=== PATIENT | male | born 1955 | race Caucasian/White ===

== ENCOUNTER → 2019-03-17 08:28 | Outpatient (CLI) | payer OTHER, SELFPAY ==
--- NOTE | 2019-03-17 08:38 | RAD_ITS ---
PROCEDURE: Fluoroscopic guided Hip Injection DATE: March 17, 2019. INDICATION: Male, 63 years old. Chronic right hip pain. PHYSICIAN: Apollo Miranda M.D. MEDICATIONS: 80 mg of Kenalog and 3 cc of 0.5% Marcaine. 2% lidocaine administered subcutaneously for local anesthesia. ACCESS SITE: Right hip. NEEDLE: 22-gauge spinal needle. FLUOROSCOPY TIME (if supplied): (0:38) minutes/seconds FINDINGS: The risks, benefits, and alternatives to the procedure were explained to the patient. The specific risks of bleeding, infection, and neurovascular injury were detailed and accepted. Witnessed informed consent was obtained. A 22-gauge spinal needle was positioned under radiographic fluoroscopic localization. Approximately 2 cc of Isovue-300 instilled for localization purposes. Medication was then injected. The patient tolerated the procedure well without any immediate complications. RAD/Inj/Asp Ludwig Jt Should/Hip/Knee IMPRESSION: 1. Successful fluoroscopic guided hip injection. Electronically Signed: Apollo Miranda, at 9:34 EDT , Service support ,
== END ==
PROVIDERS: Family Provider Physician Assistant; PCP Physician Assistant; Referring Provider Orthopaedic Surgery; Visit Provider Orthopaedic Surgery
DX: M16.11 Unilateral primary osteoarthritis, right hip (principal); M25.551 Pain in right hip; G89.29 Other chronic pain
CPT/HCPCS: 20610; 77002; Q9967

== ENCOUNTER → 2020-07-08 09:30 | Outpatient (CLI) | payer OTHER, SELFPAY ==
--- NOTE | 2020-07-08 09:38 | RAD_ITS ---
PROCEDURE: Fluoroscopic guided Hip Injection DATE: 07/08/2020. INDICATION: Male, 64 years old. Chronic right hip pain. PHYSICIAN: Apollo Miranda M.D. MEDICATIONS: 80 mg of KENALOG and 3 cc of 0.5% MARCAINE. 2% Lidocaine administered subcutaneously for local anesthesia. ACCESS SITE: Right hip. NEEDLE: 22-gauge spinal needle. FLUOROSCOPY TIME (if supplied): (0:43) minutes/seconds. One image was obtained. FINDINGS: The risks, benefits, and alternatives to the procedure were explained to the patient. The specific risks of bleeding, infection, and neurovascular injury were detailed and accepted. Witnessed informed consent was obtained. A 22-gauge spinal needle was positioned under radiographic fluoroscopic localization. Approximately 2 cc of ISOVUE-300 instilled for localization purposes. Medication was then injected. The patient tolerated the procedure well without any immediate complications. RAD/Inj/Asp Ludwig Jt Should/Hip/Knee IMPRESSION: 1. Successful fluoroscopic guided hip injection. Electronically Signed: Apollo Miranda, at 10:55 EST , Service support ,
== END ==
PROVIDERS: PCP Physician Assistant; Referring Provider Orthopaedic Surgery; Visit Provider Orthopaedic Surgery
DX: M25.551 Pain in right hip (principal); G89.29 Other chronic pain; M16.11 Unilateral primary osteoarthritis, right hip
CPT/HCPCS: 20610; 77002

== ENCOUNTER 2021-02-27 22:28 | Emergency (ER) | payer MEDICARE, SELFPAY ==
[2021-02-27 22:29] VITALS: BP 134/88; PULSE 86; RESP 12; TEMP 36.3; O2SAT 99; BMI 26.2
--- NOTE | 2021-02-27 23:35 | EKG12_ITS ---
Test Reason : DYSRHYTHMIA Blood Pressure : / mmHG Vent. Rate : 068 BPM Atrial Rate : 068 BPM P-R Int : 150 ms QRS Dur : 120 ms QT Int : 406 ms P-R-T Axes : 003 008 026 degrees QTc Int : 431 ms Normal sinus rhythm Normal ECG Confirmed by KENYETTA GARAY, NORMA ([id number]), index editor DEBORA RAMIREZ ([id number]) on 03/04/2021 8:51:34 AM Referred By: DILEEP Confirmed By:NORMA KUMARI MD
--- NOTE | 2021-02-27 23:35 | CT_ITS ---
STUDY: CT BRAIN WITHOUT CONTRAST REASON FOR EXAM: Male, 65 years old. dizziness RADIATION DOSAGE (If Supplied By Facility): CTDIvol = ( 44.99 ) mGy, DLP = ( 846.73 ) mGycm TECHNIQUE: Transaxial CT imaging of the brain was performed without administration of intravenous contrast material. Individualized dose optimization techniques were used for this CT. COMPARISON: 09/14/2013. FINDINGS: Normal soft tissue structures. Normal calvarium. There is mild to moderate cerebral atrophy with widening of the extra-axial spaces and ventricular dilatation. There are areas of decreased attenuation within the white matter tracts of the supratentorial brain, consistent with microvascular disease changes. Normal basal ganglia and thalami. Normal brainstem. Normal cerebellum. There is no intracranial hemorrhage. There are no findings of an acute ischemic infarction. Normal visualized paranasal sinuses. CT/Brain/Head without Contrast IMPRESSION: Chronic changes as described. No acute intracranial hemorrhage or space-occupying lesion. Electronically Signed: Christine Torres MD at 1:16 EDT , Service support ,
--- NOTE | 2021-02-27 23:37 | EX.ED.DYSGE1 ---
HPI History of Present Illness Chief Complaint: Dizziness Informant: patient and spouse/S.O. Narrative Narrative: Patient presents with episodes of dizziness/vertigo. He states he does feel as though the room is spinning around. He has had 4 more episodes of this over the last couple years. Normally he takes meclizine. However he ran out. He had an episode of this about a month ago. He used Dramamine instead of meclizine and that did help. However he is out of that medicine to. He had another episode today. His symptoms are much better if he stays still. If he moves or turns quickly he gets very significant vertigo. He has had some nausea but no vomiting. He has had the symptoms in the past. He never had numbness tingling weakness or any focal neurologic symptoms. No headache. Motion makes it worse and staying still makes it better. [facility] Medical History (Updated 02/28/21 @ 01:[address] Panchito Batista MD) Allergies Arthritis Hypertension Home Medications fexofenadine-pseudoephedrine [Gladis-D 24 Hour] 1 tab PO DAILY 02/28/21 [History Last Taken Unknown] lisinopril 20 mg PO DAILY 02/28/21 [History Last Taken Unknown] meclizine 25 mg PO TID PRN #20 tab 02/28/21 [Rx Last Taken Unknown] Allergy/AdvReac Type Severity Reaction Status Date / Time celecoxib [From Celebrex] AdvReac Upset Verified 02/27/21 22:29 Stomach Social History Smoking Status: Former smoker ROS ROS ED Constitutional Constitutional ED: Denies chills or fever(s) Eyes Eyes: Denies blurry vision or change in vision ENT ENT ED: Denies ear pain Cardiovascular Cardiovascular: Denies chest pain, palpitations or racing heartbeat Respiratory/Chest Respiratory/Chest: Denies cough or dyspnea Gastrointestinal Gastrointestinal: Reports nausea; Denies abdominal pain or vomiting Genitourinary Genitourinary ED: Denies dysuria Musculoskeletal Musculoskeletal: Denies back pain or neck pain Integumentary Denies rash Neurologic Neurologic: Denies headache(s), paresthesias or weakness Psychiatric Psychiatric: Denies anxiety or depression Endocrine Endocrinology: Denies polydipsia or polyuria Allergic/Immunologic Allergic/Immunologic ED: Denies urticaria EXAM Physical Exam Const Vital Signs: 02/27/21 22:29 02/28/21 00:13 02/28/21 00:18 Temperature 97.3 F L Temperature Source Temporal Pulse Rate 86 72 Respiratory Rate 12 16 Respiratory Effort Normal Non-Labored Respiratory Pattern Normal Blood Pressure 134/88 H 134/84 H Blood Pressure Mean 103 100 Pulse Ox 99 96 Oxygen Delivery Method Room Air Room Air Positive well nourished and well developed General Appearance ED: well developed and NAD HEENT Reports TM's clear and moist mucous membranes Negative for trauma or tenderness Tympanic Membrane ED: Yes TM's clear Eyes PERRL and EOMs intact bilaterally Neck no lymphadenopathy, supple and no JVD Chest Wall inspection of chest normal Resp normal respiratory effort and clear to auscultation bilaterally Cardio regular rate, regular rhythm and no murmurs GI normal to inspection, nondistended, normoactive bowel sounds and non-tender Palpation: soft Back/Spine no CVA tenderness Extremity normal to inspection General Extremety ED: Negative for edema or tenderness General Extremity: Negative for edema Neuro oriented x3, CN's II-XII intact bilaterally and no sensory deficits noted Neuro Narrative: Patient has very significant symptoms with motion. It is worse if he turns his head to the right. I had him lay down look up and turned to the right. When I sat him up he got horizontal nystagmus and vertigo. It was fatigable. Patient has no discoordination on exam. Sensorium / Orientation: alert; Negative for orientation impaired, lethargic or stuporous Motor Exam: strength 5/5 throughout; Negative for general weakness or strength abnormal Psych mental status grossly normal Skin no rashes or lesions noted MDM MDM MDM Narrative Medical decision making narrative: Patient's blood work shows normal CBC. Electrolytes showed some mild dehydration. He was given fluids. He has gotten up to the bathroom. He felt a little dizzy but he did feel better. I discussed options with him and his . His presentation is really consistent with benign positional vertigo. It is not pointing heavily to posterior circulation symptoms. He states he is normally done very well with meclizine. I offered trying some benzodiazepine. But they would prefer to stick with meclizine as it is helped so well. He is comfortable going home. Has his with him. We will follow with this plan. Lab Data Attestation: I reviewed the patient's lab results. Labs: Laboratory Results - last 24 hr 02/27/21 02/27/21 00:10 00:10 WBC 5.2 RBC 4.65 Hgb 13.8 Hct 43.8 MCV 94.2 H MCH 29.7 MCHC 31.5 L RDW Std Deviation 51.4 H RDW Coeff of Magda 14.8 H Plt Count 402 MPV 9.7 Immature Gran % (Auto) 0.400 Neut % (Auto) 57.3 Lymph % (Auto) 29.6 [place] % (Auto) 9.4 Eos % (Auto) 2.5 Baso % (Auto) 0.8 Absolute Neuts (auto) 3.0 Absolute Lymphs (auto) 1.55 Nucleated RBC % 0 Sodium 144 Potassium 3.8 Chloride 111 H Carbon Dioxide 30.0 Anion Gap 3 L BUN 35 H Creatinine 1.67 H Estim Creat Clear Calc 51.30 Est GFR (MDRD) Af Amer 53 L Est GFR (MDRD) Non-Af 44 L BUN/Creatinine Ratio 21.0 H Glucose 130 H Calcium 8.6 Radiography Diagnostic Testing: Radiology Impression Brain CT 02/27/21 23:35 IMPRESSION: Chronic changes as described. No acute intracranial hemorrhage or space-occupying lesion. Electronically Signed: Christine Torres MD at 1:16 EDT , Service support , EKG Initial EKG: Comments: EKG done for dizziness and read by me shows normal sinus rhythm with a rate of 68. No ectopy. No acute ST elevation or depression. IN interval, QTC are normal. QRS duration is just at the high limit of normal at 120 ms. Discharge Plan Triage Chief Complaint: Dizziness ED Provider: Panchito Batista Dx/Rx/DC Orders Clinical Impression: Vertigo, Dehydration, mild Instructions: ED BPV Vertigo Prescriptions: New meclizine 25 mg tablet 25 mg PO TID PRN (Reason: dizziness) Qty: 20 RF: 0 No Action lisinopril 20 mg Tablet 20 mg PO DAILY RF: 0 Gladis-D 24 Hour 180-240 mg Tablet Extended Release 24 Hr 1 tab PO DAILY RF: 0 Primary Care Provider: Clifton Doran Referrals: Clifton Doran, PA [Primary Care Provider] - 3-5 Days Disposition Disposition: Home, Self Care
[2021-02-28] MEDS: 0.9% Normal Saline 1,000 ML 1000 ML IV (00:12)
[2021-02-28] MEDS: Meclizine HCl 25 MG Tablet PO (00:12)
[2021-02-28 00:15] LABS: Absolute Lymphocyte Count 1.55 X10^3/uL (0.83-4.51); Basophil# 0.04 X10^3/uL; Basophil% 0.8 % (0-1); Eosinophil# 0.13 X10^3/uL; Eosinophils% 2.5 % (0-5); Hematocrit 43.8 % (40-54); Hemoglobin 13.8 g/dL (13.0-16.5); Lymphocyte # 1.55 X10^3/ul (0.83-4.51); Lymphocyte % 29.6 % (19-41); Mean Corp Hgb Conc 31.5 g/dL (32-36); Mean Corpuscular Hgb 29.7 pg (27.0-32.0); Mean Corpuscular Volume 94.2 fL (80-94); Mean Platelet Vol. 9.7 fl (6.2-12.0); Monocyte# 0.49 X10^3/uL; Monocyte% 9.4 % (0-10); NRBC Flagged by Analyzer 0 % (0-5); Neutrophil % 57.3 % (47-70); Platelet Count 402 K/mm3 (150-450); RBC Distribution Width CV 14.8 % (11.6-14.6); RBC Distribution Width SD 51.4 fl (35.1-43.9); Red Blood Count 4.65 M/mm3 (4.6-6.2); White Blood Count 5.2 K/mm3 (4.4-11.0)
[2021-02-28 00:18] VITALS: BP 134/84; PULSE 72; RESP 16; O2SAT 96
[2021-02-28 00:36] LABS: Anion Gap 3 (5-15); BUN 35 mg/dL (7-18); Calcium,Total 8.6 mg/dL (8.5-10.1); Chloride 111 mmol/L (98-107); Creatinine, Serum 1.67 mg/dL (0.70-1.30); EST Glomerular Filtration Rate 44 mL/min (>60); Est Glom Filt Rate - Afr Amer 53 mL/min (>60); Glucose 130 mg/dL (74-106); Potassium 3.8 mmol/L (3.5-5.1); Sodium Level 144 mmol/L (136-145)
[2021-02-28 02:04] VITALS: BP 124/77; PULSE 68; RESP 15; O2SAT 98
== END 2021-02-28 02:52 | disposition home or self-care (01) ==
PROVIDERS: Emergency Provider Emergency Medicine; PCP Physician Assistant
DX: R42 Dizziness and giddiness (principal); E86.0 Dehydration; Z79.899 Other long term (current) drug therapy; Z87.891 Personal history of nicotine dependence
CPT/HCPCS: 70450; 80048; 85025; 93005; 96360; 99284; J7030; A4216

== ENCOUNTER 2021-04-11 13:45 | Inpatient (IN) | payer MEDICARE, SELFPAY ==
[2021-04-11 13:58] VITALS: BMI 25.2
[2021-04-11 14:57] VITALS: BP 90/55; PULSE 94; RESP 18; TEMP 36.8; O2SAT 96
--- NOTE | 2021-04-11 16:15 | HP.PCM_ITS ---
HPI - General General Date of Admission: 04/11/21 HPI Narrative LARISA ROCK, is a 65 Male who presents with followin04/09/2021 Dr. Foley performed right total hip replacement at [facility]. 04/10/2021 DVT prophylaxis with aspirin, sequential compression devices. Oxycodone stopped due to postoperative delirium. 04/11/2021 Admit to TCU with debility, here for rehabilitation, strengthening, prior to discharge home with . [facility] Medical History Allergies Arthritis Hypertension Home Medications fexofenadine-pseudoephedrine [Gladis-D 24 Hour] 1 tab PO DAILY 02/28/21 [History Last Taken Unknown] lisinopril 20 mg PO DAILY 02/28/21 [History Last Taken Unknown] meclizine 25 mg PO TID PRN #20 tab 02/28/21 [Rx Last Taken Unknown] acetaminophen 1,000 mg PO Q8H PRN 04/11/21 [History Last Taken Unknown] aspirin 81 mg PO DAILY 04/11/21 [History Last Taken Unknown] ferrous sulfate 325 mg PO DAILY 04/11/21 [History Last Taken Unknown] senna 8.6 mg PO DAILY 04/11/21 [History Last Taken Unknown] tamsulosin 0.4 mg PO DAILY 04/11/21 [History Last Taken Unknown] tramadol 50 mg PO Q6H PRN 04/11/21 [History Last Taken Unknown] Allergy/AdvReac Type Severity Reaction Status Date / Time celecoxib [From Celebrex] AdvReac Upset Verified 02/27/21 22:29 Stomach Family History (Updated 04/11/21 @ 16:[address] Bridger Santos MD) Mother Cancer Father Alzheimer disease Prostate cancer Sister Lymphoma Social History Smoking Status: Former smoker ROS Constitutional Constitutional: Denies chills, fever(s) or weight gain ENT HEENT: Denies headache(s), nasal congestion or nasal discharge Cardiovascular Cardiovascular: Denies chest pain or palpitations Respiratory/Chest Respiratory/Chest: Denies cough, excessive phlegm production or shortness of breath with exertion Gastrointestinal Gastrointestinal: Denies abdominal pain, nausea or vomiting Genitourinary Genitourinary: Denies dysuria Musculoskeletal Musculoskeletal: Denies joint pain or joint swelling Integumentary Integumentary: Denies rash or wounds Neurologic Neurologic: Denies focal weakness, numbness or tingling Psychiatric Psychiatric: Reports auditory hallucinations; Denies anxiety, depression, homicidal ideation or suicidal ideation Vital Signs Vital Signs Vital Signs: 04/11/21 14:54 04/11/21 14:57 Temperature 98.2 F Temperature Source Temporal Pulse Rate 94 Pulse Rhythm Regular Pulse Strength Normal (2+) Respiratory Rate 18 Respiratory Effort Normal Non-Labored Respiratory Depth Normal Respiratory Pattern Normal Blood Pressure 90/55 L Blood Pressure Mean 66 Blood Pressure Source Monitor Blood Pressure Position Sitting Blood Pressure Location Left Arm Pulse Ox 96 Oxygen Delivery Method Room Air Room Air Weight Weight: 89.103 kg Body Mass Index (BMI) 25.2 Physical Exam Const alert and oriented x3 General Appearance: cooperative HEENT normocephalic Eyes PERRL and EOMs intact bilaterally Neck supple, no JVD and no carotid bruits Resp normal respiratory effort, normal air movement and clear to auscultation bilaterally Cardio regular rate and regular rhythm GI normal to inspection, nondistended, normoactive bowel sounds, non-tender and non-distended Extremity normal capillary refill General Extremity: Negative for edema Skin no rashes or lesions noted General Skin Exam: no breakdown Psych affect normal Appearance: appropriate Assessment & Plan Assessment/Plan (1) History of total right hip replacement: (2) Debility: (3) Osteoarthritis of right hip: (4) Encephalopathy: (5) Obstructive sleep apnea: (6) Benign prostate hyperplasia: (7) Psoriasis: (8) Mild cognitive impairment: (9) History of basal cell cancer: PLAN: 65 year old male with below past medical history hospitalized right total hip replacement 04/09/[address] Foley, admitted to TCU with debility, here for rehabilitation, strengthening, prior to discharge home with . * Debility - PT/OT. * Pain - Tylenol 1000mg Q6H prn pain (1-5), Tramadol 50mg Q6H prn pain (6-10). * Bowel - Miralax 17gm daily, Senna/colace 1 tablet twice daily, Dulcolax 10mg daily prn. * Adult immunization - Administer prevnar 13, pneumovax 23, fluzone, covid19 vaccine as appropriate. * DVT prophylaxis - Lovenox 40mg sc daily. * CV prophylaxis - Aspirin 81mg daily. * Nutrition - Ensure Enlive 120ml 4x/day. * Iron deficiency anemia - Ferrous sulfate 325mg daily. * Hypertension - Lisinopril 20mg daily. * Allergic rhinitis - Loratadine 10mg daily, Sudafed 60mg 4x/day. * BPH - Tamsulosin 0.4mg daily.
[2021-04-12 05:00] VITALS: BP 91/63; PULSE 99
[2021-04-12] MEDS: Lisinopril 20 MG Tablet PO (05:14)
[2021-04-12] MEDS: Tamsulosin HCl 0.4 MG Capsule PO (05:16)
[2021-04-12] MEDS: Polyethylene Glycol 3350 17 GM PACKET PO (05:18)
[2021-04-12] MEDS: Enoxaparin 40 MG/0.4 ML Syringe SC (05:19)
[2021-04-12] MEDS: Loratadine 10 MG Tablet PO (05:19)
[2021-04-12] MEDS: Senna/Docusate Sodium 1 Tablet PO ×2 (05:19→17:28)
[2021-04-12] MEDS: Aspirin E.C. 81 MG Tablet PO (07:35)
[2021-04-12] MEDS: Acetaminophen 500 MG Tablet 1000 MG PO ×2 (07:37→14:52)
[2021-04-12 08:40] LABS: Absolute Lymphocyte Count 1.96 X10^3/uL (0.83-4.51); Absolute Neutrophil Count 6.2 X10^3/uL (2.0-7.7); Basophil# 0.03 X10^3/uL; Basophil% 0.3 % (0-1); Eosinophil# 0.07 X10^3/uL; Eosinophils% 0.8 % (0-5); Hematocrit 39.4 % (40-54); Hemoglobin 12.6 g/dL (13.0-16.5); Lymphocyte # 1.96 X10^3/ul (0.83-4.51); Lymphocyte % 21.3 % (19-41); Mean Corpuscular Hgb 29.9 pg (27.0-32.0); Mean Corpuscular Volume 93.4 fL (80-94); Mean Platelet Vol. 10.1 fl (6.2-12.0); Monocyte# 0.87 X10^3/uL; Monocyte% 9.4 % (0-10); NRBC Flagged by Analyzer 0 % (0-5); Neutrophil % 67.2 % (47-70); Platelet Count 452 K/mm3 (150-450); RBC Distribution Width SD 51.6 fl (35.1-43.9); Red Blood Count 4.22 M/mm3 (4.6-6.2); White Blood Count 9.2 K/mm3 (4.4-11.0)
[2021-04-12 09:22] LABS: Anion Gap 7 (5-15); BUN 36 mg/dL (7-18); BUN/Creat Ratio 17.3 RATIO (10-20); Calcium,Total 8.6 mg/dL (8.5-10.1); Chloride 103 mmol/L (98-107); Creatinine, Serum 2.08 mg/dL (0.70-1.30); EST Glomerular Filtration Rate 34 mL/min (>60); Est Glom Filt Rate - Afr Amer 41 mL/min (>60); Estimated Creatinine Clearance 40.07 ml/min; Glucose 111 mg/dL (74-106); Potassium 3.4 mmol/L (3.5-5.1); Sodium Level 136 mmol/L (136-145)
[2021-04-12 10:00] VITALS: PULSE 83; RESP 18; O2SAT 92
[2021-04-12] MEDS: Tuberculin,Purif.prot.deriv. 50 TU/ML Vial 0.1 ML ID (10:56)
[2021-04-12] MEDS: Ferrous Sulfate 325 MG Tablet PO (11:45)
[2021-04-12] MEDS: 0.9% Normal Saline 1,000 ML 75 ML IV (13:13)
[2021-04-12 14:48] VITALS: BP 129/67; PULSE 64; RESP 18; TEMP 36.3; O2SAT 97
--- NOTE | 2021-04-13 00:05 | NURSING ---
Alarm sounds and pt is ambulating back to bed on left side of bed towards the window. Disoriented and anxious. Reports the red lights woke him up. Pt points to light switches behind bed with red lights. Emotional support and reassurance provided. Verbalizes he would like to shower and informed pt he may not be able due to the mepliex to the right hip. Pt toileted. Continent of urine. Ambulates back to bed using FWW. Mod to max cueing to enforce WB status with poor adherence. Positioned in bed for comfort. Reconnected to IVF. Bed alarm in place and bed in lowest position. Call light w/ in reach. Will continue to monitor.
[2021-04-13] MEDS: Acetaminophen 500 MG Tablet 1000 MG PO ×2 (00:46→20:55)
--- NOTE | 2021-04-13 03:54 | NURSING ---
Pt uncomfortable and bladder scanned for 580cc. Straighted cathed for 400 out. Urine light yellow and clear. Patient tolerated well.
[2021-04-13] MEDS: 0.9% Normal Saline 1,000 ML 75 ML IV ×2 (06:51→19:11)
[2021-04-13] MEDS: Lisinopril 20 MG Tablet PO (06:52)
[2021-04-13] MEDS: Tamsulosin HCl 0.4 MG Capsule PO (06:52)
[2021-04-13] MEDS: Loratadine 10 MG Tablet PO (06:52)
[2021-04-13] MEDS: Polyethylene Glycol 3350 17 GM PACKET PO (06:53)
[2021-04-13] MEDS: Enoxaparin 40 MG/0.4 ML Syringe SC (06:53)
[2021-04-13] MEDS: Senna/Docusate Sodium 1 Tablet PO ×2 (06:54→16:58)
[2021-04-13] MEDS: Potassium Chloride Oral Tablet 20 MEQ PO (07:30)
[2021-04-13] MEDS: Aspirin E.C. 81 MG Tablet PO (07:30)
--- NOTE | 2021-04-13 07:39 | NURSING ---
Alarm sounds and pt is wandering in room without walker. Poorly maintaining PWB status to RLE. This nurse assisted pt using wheeled walker to common area across from nurses station. Reddy placed within reach to call for staff. Given ice water. Pt stands up within minutes and would like to go to bathroom to adjust his underwear. Pt sits on toilet and thinks he has to void. No urine noted in hat. Brief dry as st cath was completed recently. Alarm placed on chair. Breakfast tray set up per staff. Thinks his and daughter are here on unit. Informed pt his family has not arrived to visit at this time. Attempted to reorient pt to place and time. Staff to continue to monitor.
[2021-04-13 08:13] LABS: Anion Gap 10 (5-15); BUN 47 mg/dL (7-18); BUN/Creat Ratio 18.2 RATIO (10-20); Calcium,Total 8.6 mg/dL (8.5-10.1); Chloride 106 mmol/L (98-107); Creatinine, Serum 2.58 mg/dL (0.70-1.30); EST Glomerular Filtration Rate 27 mL/min (>60); Est Glom Filt Rate - Afr Amer 32 mL/min (>60); Glucose 111 mg/dL (74-106); Potassium 3.6 mmol/L (3.5-5.1); Sodium Level 139 mmol/L (136-145)
--- NOTE | 2021-04-13 10:04 | NURSING ---
pt remains confused and restless. Requiring 1:1 supervision
--- NOTE | 2021-04-13 10:39 | NURSING ---
Notified Dr. Santos of patient restless, not sleeping at night and requiring 1:1 supervision. Received order for Ativan 1mg q6hr PRN, stop Sudafed. Order repeated back.
[2021-04-13] MEDS: Ferrous Sulfate 325 MG Tablet PO (11:11)
[2021-04-13 13:24] LABS: Bacteria 0 SEEN /hpf (None Seen); Mucous, Urine 0 SEEN /hpf (<or=2+); Squamous Epithelial Cells - UA 0 SEEN /hpf (0-5); White Blood Cells 0 SEEN /hpf (0-5)
[2021-04-13 13:41] LABS: Color, Urine Yellow (Yellow); Glucose, Dipstick Normal (Normal); Ketone-Dipstick Negative (Negative); Leukocyte Esterase-Dipstick Negative /ul (Negative); Nitrite-Dipstick Negative (Negative); Occult Blood-Urine 50 /ul (Negative); Protein-Dipstick 30 mg/dl (Negative); Specific Gravity, Urine 1.005 (1.002-1.030); Urine Bilirubin Dipstick Negative (Negative); Urine Clarity Clear (Clear); Urine Urobilinogen Normal (Normal)
[2021-04-13 13:47] LABS: Red Blood Cells-Urine 0-5 SEEN /hpf (0-5)
[2021-04-13 15:53] VITALS: BP 96/68; PULSE 95; RESP 16; TEMP 36.7; O2SAT 96
[2021-04-13] MEDS: LORazepam 1 MG Tablet PO (19:10)
[2021-04-13 20:21] VITALS: PULSE 72; RESP 16; O2SAT 97
--- NOTE | 2021-04-13 23:18 | NURSING ---
Pt given prn ativan per order earlier. Pt appeared to be getting sleepy after about an hour. Pt was put to bed. He was unable to sleep, fidgeting with everything then kept pulling off cpap and started arguing with staff. Mask taken off as pt was not tolerating well. Getting more difficult to redirect. Continues to be 1to1 supervision
[2021-04-14] MEDS: Tamsulosin HCl 0.4 MG Capsule PO (04:58)
[2021-04-14] MEDS: 0.9% Normal Saline 1,000 ML 75 ML IV ×2 (04:58→12:12)
[2021-04-14] MEDS: Loratadine 10 MG Tablet PO (04:58)
[2021-04-14] MEDS: Lisinopril 20 MG Tablet PO (04:58)
[2021-04-14] MEDS: Senna/Docusate Sodium 1 Tablet PO ×2 (04:59→17:23)
[2021-04-14] MEDS: Polyethylene Glycol 3350 17 GM PACKET PO (05:00)
[2021-04-14] MEDS: Enoxaparin 40 MG/0.4 ML Syringe SC (05:01)
--- NOTE | 2021-04-14 06:36 | NURSING ---
Pt still awake, had not slept this shift. Is no longer aggitated and is back to his pleasant self. Continues to be very confused, fidgeting with everything. Pt is able to be easily redirected..
[2021-04-14] MEDS: traMADol 50 MG Tablet PO ×2 (07:45→20:37)
[2021-04-14] MEDS: Aspirin E.C. 81 MG Tablet PO (07:45)
[2021-04-14] MEDS: Potassium Chloride Oral Tablet 20 MEQ PO (07:45)
[2021-04-14] MEDS: Acetaminophen 500 MG Tablet 1000 MG PO ×2 (07:46→20:30)
--- NOTE | 2021-04-14 10:02 | NURSING ---
PT IS SLEEPING IN RECLINER AT THIS TIME.
[2021-04-14] MEDS: Ferrous Sulfate 325 MG Tablet PO (12:08)
--- NOTE | 2021-04-14 14:06 | PCM.PN.RX ---
Progress Note - Pharmacy Subjective: TCU Admission Objective: Allergies celecoxib [From Celebrex] Adverse Reaction (Verified 02/27/21 22:29) Upset Stomach Current Medications Generic Name Dose Route Start Last Admin Trade Name Young PRN Reason Stop Dose Admin Acetaminophen 1,000 mg 04/11/21 16:36 04/14/21 07:46 Acetaminophen 500 Mg Tablet PO 1,000 mg Q6H PRN PRN Administration Pain Score 1-5 Aspirin 81 mg 04/12/21 08:00 04/14/21 07:45 Aspirin E.C. 81 Mg Tablet PO 81 mg BREAKFAST [place] Administration Bisacodyl 10 mg 04/11/21 16:35 Bisacodyl 5 Mg Tablet PO DAILY PRN Constipation Enoxaparin Sodium 40 mg 04/12/21 06:00 04/14/21 05:01 Enoxaparin 40 Mg/0.4 Ml Syringe SC 40 mg DAILY@0600 [place] Administration Ferrous Sulfate 325 mg 04/12/21 12:00 04/14/21 12:08 Ferrous Sulfate 325 Mg Tablet PO 325 mg LUNCH [place] Administration Sodium Chloride 1,000 mls @ 75 mls/hr 04/12/21 12:05 04/14/21 12:12 IV 75 mls/hr .[id number] [place] Administration Lisinopril 20 mg 04/12/21 06:00 04/14/21 04:58 Lisinopril 20 Mg Tablet PO 20 mg DAILY [place] Administration Loratadine 10 mg 04/12/21 06:00 04/14/21 04:58 Loratadine 10 Mg Tablet PO 10 mg DAILY [place] Administration Nutritional Formula (Lactose Free) 120 ml 04/11/21 17:00 04/14/21 12:11 Ensure Enlive 120 Ml Liquid PO 120 ml 4X/DAY [place] Administration Polyethylene Glycol 17 gm 04/11/21 16:45 04/14/21 05:00 Polyethylene Glycol 3350 17 Gm Packet PO 17 gm DAILY [place] Administration Potassium Chloride 20 meq 04/13/21 08:00 04/14/21 07:45 Potassium Chloride Oral Tablet 20 Meq PO 20 meq DAILYCM [place] Administration Senna/Docusate Sodium 1 tablet 04/11/21 18:00 04/14/21 04:59 Senna/Docusate Sodium 1 Tablet PO 1 tablet BID [place] Administration Tamsulosin HCl 0.4 mg 04/12/21 06:00 04/14/21 04:58 Tamsulosin Hcl 0.4 Mg Capsule PO 0.4 mg DAILY [place] Administration Tramadol HCl 50 mg 04/11/21 16:36 04/14/21 07:45 Tramadol 50 Mg Tablet PO 50 mg Q6H PRN PRN Administration Pain Score 6-10 Tuberculin PPD 0.1 ml 04/19/21 10:00 Tuberculin,Purif.Prot.Deriv. 50 Tu/Ml Vial ID 04/19/21 10:01 X1 ONE Problem List (Last Reviewed 02/28/21 @ 00:14 by Tayler Donis) History of basal cell cancer (Acute) Mild cognitive impairment (Acute) Psoriasis (Acute) Benign prostate hyperplasia (Acute) Obstructive sleep apnea (Acute) Encephalopathy (Acute) Osteoarthritis of right hip (Acute) Debility (Acute) History of total right hip replacement (Acute) Vital Signs Temp Pulse Resp BP Pulse Ox 98.0 F 72 16 96/68 97 04/13/21 15:53 04/13/21 20:21 04/13/21 20:21 04/13/21 15:53 04/13/21 20:21 Oxygen Delivery Method Room Air Weight: 89.103 kg Body Mass Index (BMI) 25.2 Sodium 139 mmol/L (136-145) 04/13/21 06:50 Potassium 3.6 mmol/L (3.5-5.1) 04/13/21 06:50 Chloride 106 mmol/L (98-107) 04/13/21 06:50 Carbon Dioxide 23.0 mmol/L (21.0-32.0) 04/13/21 06:50 Anion Gap 10 (5-15) 04/13/21 06:50 BUN 47 mg/dL (7-18) H 04/13/21 06:50 Creatinine 2.58 mg/dL (0.70-1.30) H 04/13/21 06:50 Est GFR (MDRD) Af Amer 32 mL/min (>60) L 04/13/21 06:50 Est GFR (MDRD) Non-Af 27 mL/min (>60) L 04/13/21 06:50 BUN/Creatinine Ratio 18.2 RATIO (10-20) 04/13/21 06:50 Glucose 111 mg/dL (74-106) H 04/13/21 06:50 Assessment/Plan: 1. Pain: acetaminophen 1000mg PO Q6H PRN pain 1-5/10 and tramadol 50mg PO Q6H PRN pain 6-1010. Please continue to monitor for increased pain, PRN usage, constipation and respiratory depression. 2. DVT prophylaxis: enoxaparin 40mg SC daily. Please continue to monitor hemoglobin (last 12.6g/dL), platelets (last 452,000), S/S of bleeding and renal function. 3. CV prophylaxis: aspirin 81mg PO DAILYCM. Please continue to monitor for S/S of bleeding and hemoglobin. 4. Iron deficiency anemia: ferrous sulfate 325mg PO LUNCH. Please continue to monitor hemoglobin, constipation and dark stools. 5. Hypertension: lisinopril 20mg PO daily. Please continue to monitor BP (last 96/), potassium (last 3.6mmol/L), and renal function. 6. Allergic rhinitis: loratadine 10mg PO daily. Please continue to monitor for allergy symptoms. 7. BPH: tamsulosin 0.4mg PO daily. Please continue to monitor for S/S of BPH and BP. 8. Hypokalemia (potassium 3.4mmol/L on 04/12/21): potassium chloride 20mEq PO DAILYCM. Please continue to monitor potassium levels. Psychotropic Medications: None Unnecessary Medications: None Bowel Regimen: Miralax 17gm PO daily, senna/docusate 1T PO BID and bisacodyl 10mg PO daily PRN constipation. Please continue to monitor for constipation and PRN usage. Date of Note:: 04/14/21
[2021-04-14 14:51] VITALS: BP 112/69; PULSE 70; RESP 16; TEMP 35.9; O2SAT 95
[2021-04-14] MEDS: Bisacodyl 5 MG Tablet 10 MG PO (17:23)
[2021-04-15] MEDS: 0.9% Normal Saline 1,000 ML 75 ML IV (01:01)
[2021-04-15] MEDS: Acetaminophen 500 MG Tablet 1000 MG PO ×2 (02:32→23:04)
[2021-04-15] MEDS: traMADol 50 MG Tablet PO ×2 (02:32→23:04)
--- NOTE | 2021-04-15 07:52 | NURSING ---
AM meds held at this time as pt went to bed at 0230. OT notified to postpone ADL. Oncoming nurses updated.
--- NOTE | 2021-04-15 09:29 | CASEMGMT ---
Social Work Met with patient for initial assessment. Pt could answer limited questions, poor historian. Pt did express his wishes to be full code. MOLST form completed, communication to , placed in chart. The goal is for pt to return home with . works from home. Pt is confused which is new for him. Explained [facility] insurance with [employer]D 04/15 and continued stay is not guaranteed with each review. Completed chart review for the rest of the assessment questions. Care plan meeting 04/16. SW to continue to follow. Laury Llamas, RPG PROGRAMMER WET PLANT OPERATOR
[2021-04-15] MEDS: Tamsulosin HCl 0.4 MG Capsule PO (09:51)
[2021-04-15] MEDS: Senna/Docusate Sodium 1 Tablet PO ×2 (09:51→16:17)
[2021-04-15] MEDS: Loratadine 10 MG Tablet PO (09:51)
[2021-04-15] MEDS: Enoxaparin 40 MG/0.4 ML Syringe SC (09:51)
[2021-04-15] MEDS: Polyethylene Glycol 3350 17 GM PACKET PO (09:51)
[2021-04-15] MEDS: Aspirin E.C. 81 MG Tablet PO (09:53)
[2021-04-15] MEDS: Potassium Chloride Oral Tablet 20 MEQ PO (09:53)
[2021-04-15] MEDS: Lisinopril 20 MG Tablet PO (09:58)
[2021-04-15 10:02] VITALS: BP 140/88; PULSE 83
[2021-04-15] MEDS: Ferrous Sulfate 325 MG Tablet PO (13:32)
[2021-04-15 14:04] VITALS: BP 114/73; PULSE 102; RESP 17; TEMP 36.1; O2SAT 96
[2021-04-15 23:05] VITALS: RESP 18
[2021-04-16] MEDS: Polyethylene Glycol 3350 17 GM PACKET PO (04:32)
[2021-04-16] MEDS: Loratadine 10 MG Tablet PO (04:32)
[2021-04-16] MEDS: Tamsulosin HCl 0.4 MG Capsule PO (04:32)
[2021-04-16] MEDS: Enoxaparin 40 MG/0.4 ML Syringe SC (04:32)
[2021-04-16] MEDS: Lisinopril 20 MG Tablet PO (04:32)
[2021-04-16] MEDS: Senna/Docusate Sodium 1 Tablet PO ×2 (04:32→17:27)
[2021-04-16 05:12] VITALS: BP 112/67; PULSE 89
[2021-04-16] MEDS: Potassium Chloride Oral Tablet 20 MEQ PO (09:28)
[2021-04-16] MEDS: Aspirin E.C. 81 MG Tablet PO (09:28)
[2021-04-16] MEDS: Ferrous Sulfate 325 MG Tablet PO (11:59)
--- NOTE | 2021-04-16 13:00 | CASEMGMT ---
Social Work IDT met with patient and for care plan meeting. Discussed patient's progress in therapy and nursing. ST working on cognition, etc. reports pt was working with neurologist for testing for Dementia/Alzheimer's but have not received results at this time, and was diagnosed with severe sleep apnea, and had issues with short term memory. 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 IDT recommends 08/02 supervision at DC at this time. Explained [facility] insurance with NRD 04/22, EDC 04/25. Provided and explained insurance care plan. Discussed DC options to ensure safety at home. 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 Provided and explained resources for adult day centers, nonskilled HHC and encouraged to contact quickly d/t availability. Pt has new girard and would prefer that be DC'd prior to DC home. Pt does have PWBS. appreciative of information. SW to continue to follow. Laury Llamas, THICKENER OPERATOR RETAIL STORE ASSISTANT
[2021-04-16 13:44] VITALS: PULSE 115; RESP 16; O2SAT 96
[2021-04-16 15:23] VITALS: BP 116/74; PULSE 102; RESP 18; TEMP 36.5; O2SAT 96
--- NOTE | 2021-04-16 16:33 | CHAPLAIN ---
Type of Pastoral Visit ___ Initial Visit ___ Follow-up Visit ___ On-call Visit _x__ General Patient Visit ___ Spiritual Assessment ___ Family Conference ___ Bereavement ___ Rapid Response ___ Code Blue ___ Other (describe below) Pastoral Care Referral From ___ Patient ___ Family ___ Nurse ___ Physician ___ Roustabout ___ Benefits Director _x__ Other (describe below) Sacrament/Intervention _x__ Active listening ___ Anointing ___ Catholic ___ Bereavement ___ Communion ___ Scarlet exploration ___ ___ Life review ___ Prayer ___ Reconciliation ___ Sacrament of Sick ___ Supportive presence ___ Wedding ___ Other (describe below) Pastoral Comments met this patient as he was playing [employer] for today's activity; pt was talkative and welcoming of visit; pt speaks of his family and how he has loved long-term so I can be there and not miss out on their lives;
--- NOTE | 2021-04-17 04:14 | NURSING ---
Patient found in bed with catheter no longer attached to drainage bag tubing, bed wet. Removed catheter and replaced with 16F girard using sterile technique, return of clear yellow urine. New statlock applied to right leg. Patient tolerated well.
[2021-04-17 05:05] VITALS: BP 112/66; PULSE 104
[2021-04-17] MEDS: Tamsulosin HCl 0.4 MG Capsule PO (05:05)
[2021-04-17] MEDS: Enoxaparin 40 MG/0.4 ML Syringe SC (05:05)
[2021-04-17] MEDS: Loratadine 10 MG Tablet PO (05:05)
[2021-04-17] MEDS: Polyethylene Glycol 3350 17 GM PACKET PO (05:06)
[2021-04-17] MEDS: Senna/Docusate Sodium 1 Tablet PO ×2 (05:06→16:53)
[2021-04-17] MEDS: Lisinopril 20 MG Tablet PO (05:06)
[2021-04-17] MEDS: Aspirin E.C. 81 MG Tablet PO (08:26)
[2021-04-17] MEDS: Potassium Chloride Oral Tablet 20 MEQ PO (08:26)
[2021-04-17] MEDS: Ferrous Sulfate 325 MG Tablet PO (11:46)
--- NOTE | 2021-04-17 13:41 | NURSING ---
Addendum entered by Nanci Moore 04/17/21 15:12: Rechecked Blood pressure 87/58 Pulse 104 pt denies signs and symptoms of Low BP. Dr. Santos updated new order for 1L bolus of NS and recheck BP after Bolus. Original Note: Pt BP 73/48 Pulse 132 Temp 98.1 SP02 94% RA. Pt denies signs and symptoms of Low Blood Pressure. Dr. Santos updated New order for 1L Bolus of NS BMP D/C Zestril and recheck BP after bolus.
[2021-04-17 13:45] VITALS: BP 73/48; PULSE 132; RESP 18; TEMP 36.7; O2SAT 94
[2021-04-17] MEDS: 0.9% Normal Saline 1,000 ML 1000 ML IV ×2 (13:45→15:28)
[2021-04-17 14:16] LABS: Anion Gap 5 (5-15); BUN 36 mg/dL (7-18); BUN/Creat Ratio 21.3 RATIO (10-20); Calcium,Total 9.3 mg/dL (8.5-10.1); Chloride 107 mmol/L (98-107); Creatinine, Serum 1.69 mg/dL (0.70-1.30); EST Glomerular Filtration Rate 43 mL/min (>60); Est Glom Filt Rate - Afr Amer 52 mL/min (>60); Estimated Creatinine Clearance 49.31 ml/min; Glucose 136 mg/dL (74-106); Potassium 4.5 mmol/L (3.5-5.1); Sodium Level 138 mmol/L (136-145)
--- NOTE | 2021-04-17 14:43 | MDS.RN ---
Pain interview for ELA 04/18/21 completed.
[2021-04-17 15:00] VITALS: BP 87/58; PULSE 104
[2021-04-17 16:18] VITALS: BP 118/75; PULSE 91
[2021-04-17 20:30] VITALS: BP 103/67; PULSE 97; RESP 18; O2SAT 98
--- NOTE | 2021-04-17 21:11 | NURSING ---
Pop catheter removed. Patient tolerated well. Small amount of discharge noted with removal. Patient had 675ml Urine out prior to removal. Will continue to monitor.
[2021-04-18 05:24] VITALS: BP 131/81; PULSE 97
[2021-04-18] MEDS: Polyethylene Glycol 3350 17 GM PACKET PO (05:31)
[2021-04-18] MEDS: Enoxaparin 40 MG/0.4 ML Syringe SC (05:33)
[2021-04-18] MEDS: Loratadine 10 MG Tablet PO (05:35)
[2021-04-18] MEDS: Tamsulosin HCl 0.4 MG Capsule PO (05:35)
[2021-04-18] MEDS: Senna/Docusate Sodium 1 Tablet PO ×2 (05:35→17:37)
[2021-04-18] MEDS: Potassium Chloride Oral Tablet 20 MEQ PO (08:36)
[2021-04-18] MEDS: Aspirin E.C. 81 MG Tablet PO (08:36)
[2021-04-18 10:00] VITALS: PULSE 97; RESP 18; O2SAT 99
[2021-04-18] MEDS: Ferrous Sulfate 325 MG Tablet PO (11:46)
[2021-04-18 15:49] VITALS: BP 88/57; PULSE 105; RESP 18; TEMP 36.2; O2SAT 96
[2021-04-18 19:26] VITALS: BP 104/59; PULSE 108; O2SAT 96
[2021-04-18 21:26] VITALS: PULSE 86; RESP 18; O2SAT 96
[2021-04-18 23:34] VITALS: BP 119/80; PULSE 105; RESP 18; TEMP 36.9; O2SAT 98
--- NOTE | 2021-04-19 04:18 | NURSING ---
Alarm sounds and pt in doorway of bathroom. Does not have walker. Assisted pt to bathroom. Brief w/ small amount of urine. ANCHOR TACK PULLER comes in to assist with bathing to maintain safety. Denies any and shows no sxs pain or discomfort.
[2021-04-19] MEDS: Tamsulosin HCl 0.4 MG Capsule PO (06:12)
[2021-04-19] MEDS: Loratadine 10 MG Tablet PO (06:12)
[2021-04-19] MEDS: Polyethylene Glycol 3350 17 GM PACKET PO (06:12)
[2021-04-19] MEDS: Senna/Docusate Sodium 1 Tablet PO (06:12)
[2021-04-19] MEDS: Enoxaparin 40 MG/0.4 ML Syringe SC (06:12)
[2021-04-19 07:27] LABS: Absolute Lymphocyte Count 2.19 X10^3/uL (0.83-4.51); Absolute Neutrophil Count 4.8 X10^3/uL (2.0-7.7); Basophil# 0.04 X10^3/uL; Basophil% 0.5 % (0-1); Eosinophil# 0.21 X10^3/uL; Eosinophils% 2.6 % (0-5); Hematocrit 37.9 % (40-54); Hemoglobin 12.1 g/dL (13.0-16.5); Lymphocyte # 2.19 X10^3/ul (0.83-4.51); Lymphocyte % 26.8 % (19-41); Mean Corp Hgb Conc 31.9 g/dL (32-36); Mean Corpuscular Hgb 30.3 pg (27.0-32.0); Mean Corpuscular Volume 94.8 fL (80-94); Mean Platelet Vol. 9.3 fl (6.2-12.0); Monocyte# 0.78 X10^3/uL; Monocyte% 9.5 % (0-10); NRBC Flagged by Analyzer 0 % (0-5); Neutrophil % 58.8 % (47-70); Platelet Count 620 K/mm3 (150-450); RBC Distribution Width CV 14.9 % (11.6-14.6); RBC Distribution Width SD 52.4 fl (35.1-43.9); White Blood Count 8.2 K/mm3 (4.4-11.0)
[2021-04-19 07:53] LABS: Anion Gap 7 (5-15); BUN 31 mg/dL (7-18); BUN/Creat Ratio 20.1 RATIO (10-20); Calcium,Total 8.9 mg/dL (8.5-10.1); Chloride 106 mmol/L (98-107); Creatinine, Serum 1.54 mg/dL (0.70-1.30); EST Glomerular Filtration Rate 48 mL/min (>60); Est Glom Filt Rate - Afr Amer 58 mL/min (>60); Estimated Creatinine Clearance 54.12 ml/min; Glucose 101 mg/dL (74-106); Potassium 4.1 mmol/L (3.5-5.1); Sodium Level 139 mmol/L (136-145)
[2021-04-19] MEDS: Aspirin E.C. 81 MG Tablet PO (08:18)
[2021-04-19] MEDS: Potassium Chloride Oral Tablet 20 MEQ PO (08:18)
[2021-04-19] MEDS: Tuberculin,Purif.prot.deriv. 50 TU/ML Vial 0.1 ML ID (11:14)
[2021-04-19] MEDS: Ferrous Sulfate 325 MG Tablet PO (11:15)
[2021-04-19 13:58] VITALS: BP 106/61; PULSE 103; RESP 16; TEMP 36.4; O2SAT 95
[2021-04-19] MEDS: 0.9% Saline Lock 10 ML Syringe IV (14:03)
[2021-04-19 20:00] VITALS: PULSE 83; RESP 16; O2SAT 93
[2021-04-19] MEDS: traMADol 50 MG Tablet PO (22:15)
[2021-04-20] MEDS: Enoxaparin 40 MG/0.4 ML Syringe SC (04:34)
[2021-04-20] MEDS: Polyethylene Glycol 3350 17 GM PACKET PO (04:34)
[2021-04-20] MEDS: Tamsulosin HCl 0.4 MG Capsule PO (04:35)
[2021-04-20] MEDS: Loratadine 10 MG Tablet PO (04:35)
[2021-04-20] MEDS: Senna/Docusate Sodium 1 Tablet PO ×2 (04:35→16:49)
[2021-04-20] MEDS: 0.9% Saline Lock 10 ML Syringe IV ×2 (04:39→16:48)
[2021-04-20] MEDS: Aspirin E.C. 81 MG Tablet PO (08:12)
[2021-04-20] MEDS: Potassium Chloride Oral Tablet 20 MEQ PO (08:12)
[2021-04-20] MEDS: Acetaminophen 500 MG Tablet 1000 MG PO ×2 (08:13→23:56)
[2021-04-20] MEDS: traMADol 50 MG Tablet PO (08:21)
[2021-04-20 10:22] VITALS: PULSE 89; RESP 16; O2SAT 95
[2021-04-20] MEDS: Ferrous Sulfate 325 MG Tablet PO (11:55)
[2021-04-20 16:00] VITALS: BP 107/64; PULSE 100; RESP 16; TEMP 36.4; O2SAT 97
[2021-04-21] MEDS: Polyethylene Glycol 3350 17 GM PACKET PO (04:33)
[2021-04-21] MEDS: Tamsulosin HCl 0.4 MG Capsule PO (04:33)
[2021-04-21] MEDS: 0.9% Saline Lock 10 ML Syringe IV ×2 (04:33→20:15)
[2021-04-21] MEDS: Senna/Docusate Sodium 1 Tablet PO ×2 (04:34→16:48)
[2021-04-21] MEDS: Enoxaparin 40 MG/0.4 ML Syringe SC (04:34)
[2021-04-21] MEDS: Loratadine 10 MG Tablet PO (04:34)
[2021-04-21] MEDS: Acetaminophen 500 MG Tablet 1000 MG PO ×2 (08:27→20:14)
[2021-04-21] MEDS: Aspirin E.C. 81 MG Tablet PO (08:27)
[2021-04-21] MEDS: Potassium Chloride Oral Tablet 20 MEQ PO (08:27)
--- NOTE | 2021-04-21 09:14 | NURSING ---
OT came and got this nurse and reported pt was standing at his sink unassisted, Pt alarm was turned on but not ringing, when questioned about being up walking around, he stated that he had turned the alarm off because he had to use the restroom and could not wait. Pt assisted back to recliner chair, alarm is on and functioning, pt given call light and educated on importance of using call light and allowing staff to assist.
--- NOTE | 2021-04-21 09:42 | NURSING ---
pt off unit via with staff assist, waiting in car at [facility] entrance for surgeon appt today.
--- NOTE | 2021-04-21 11:35 | NURSING ---
pt returned from ortho appt with orders to follow up in one month, can full wt bear RT LE, must ice and elevate RT LEG above heart for 30-40 minutes BID.
[2021-04-21] MEDS: Ferrous Sulfate 325 MG Tablet PO (11:59)
[2021-04-21 14:13] VITALS: BP 109/66; PULSE 98; RESP 16; TEMP 36.3; O2SAT 97
--- NOTE | 2021-04-21 14:25 | CASEMGMT ---
Social Work Left message with to inquire about DC plans as insurance update is 04/22 and continued stay is not guaranteed. Will continue to follow. Laury Llamas, HVAC/R INSTRUCTOR NETWORK CONTROL OPERATOR
--- NOTE | 2021-04-21 17:22 | NURSING ---
taking cpap machine home with her because pt continues to take it apart. will make sure night club manager applied 2 liter oxygen. would like that done as well.
--- NOTE | 2021-04-21 23:15 | NURSING ---
Alarm sounds. Pt sitting on edge of bed. Thinking about giving a gift for a child's birthday who is . Reoriented to time and place. Assisted back to bed and O2 reapplied at 2 lpm via nc. Bed alarm activated. Call light w/ in reach.
--- NOTE | 2021-04-22 00:15 | NURSING ---
Alarm sounds. Pt sitting on side of bed. Again pt discusses purchasing a birthday present for a child. Reoriented to time and place. Assisted back to bed. Ice refilled and applied to rt hip. Medicated w/ Tramadol per dr order for sxs of pain. Bed alarm activated. Call light w/ in reach.
[2021-04-22] MEDS: traMADol 50 MG Tablet PO (00:19)
[2021-04-22 04:45] VITALS: BP 136/77; PULSE 92; O2SAT 99
[2021-04-22] MEDS: Acetaminophen 500 MG Tablet 1000 MG PO (04:46)
[2021-04-22] MEDS: Enoxaparin 40 MG/0.4 ML Syringe SC (04:47)
[2021-04-22] MEDS: Polyethylene Glycol 3350 17 GM PACKET PO (04:48)
[2021-04-22] MEDS: Tamsulosin HCl 0.4 MG Capsule PO (04:48)
[2021-04-22] MEDS: Loratadine 10 MG Tablet PO (04:48)
[2021-04-22] MEDS: Senna/Docusate Sodium 1 Tablet PO ×2 (04:48→17:55)
[2021-04-22] MEDS: Potassium Chloride Oral Tablet 20 MEQ PO (08:58)
[2021-04-22] MEDS: Aspirin E.C. 81 MG Tablet PO (08:58)
[2021-04-22 10:00] VITALS: RESP 18
[2021-04-22] MEDS: Ferrous Sulfate 325 MG Tablet PO (12:08)
[2021-04-22 12:49] VITALS: BP 111/62; PULSE 101; RESP 14; TEMP 36.3; O2SAT 95
--- NOTE | 2021-04-22 15:20 | CHAPLAIN ---
Type of Pastoral Visit ___ Initial Visit _x__ Follow-up Visit ___ On-call Visit ___ General Patient Visit ___ Spiritual Assessment ___ Family Conference ___ Bereavement ___ Rapid Response ___ Code Blue ___ Other (describe below) Pastoral Care Referral From ___ Patient ___ Family ___ Nurse ___ Physician ___ Bacteriologist Dairy ___ [employer] Truck Driver _x__ Other (describe below) Sacrament/Intervention _x__ Active listening ___ Anointing ___ Moravian ___ Bereavement ___ Communion ___ Scarlet exploration ___ ___ Life review _x__ Prayer ___ Reconciliation ___ Sacrament of Sick _x__ Supportive presence ___ Wedding ___ Other (describe below) Pastoral Comments patient talks about his family and how proud he is of them and what they do; pt believes he is to discharged home tomorrow; pt says that he is not concerned about anything; prayer is accepted
--- NOTE | 2021-04-22 16:26 | CASEMGMT ---
Social Work Letter of non coverage issued by insurance. Phone call to pt and VM left requesting return call to discuss insurance and discharge plan. SW met with pt and explained insurance LCD. SW will followup with pt to complete d/c planning. Christiano AGUILAR
--- NOTE | 2021-04-22 19:07 | NURSING ---
Pt Ambulating self several times this shift. Educated pt on importance of calling for help d/t risk of falling. Pt able to turn alarm off on own.
[2021-04-23] MEDS: Senna/Docusate Sodium 1 Tablet PO ×2 (06:03→17:32)
[2021-04-23] MEDS: Tamsulosin HCl 0.4 MG Capsule PO (06:03)
[2021-04-23] MEDS: Enoxaparin 40 MG/0.4 ML Syringe SC (06:03)
[2021-04-23] MEDS: Loratadine 10 MG Tablet PO (06:03)
[2021-04-23] MEDS: Polyethylene Glycol 3350 17 GM PACKET PO (06:03)
[2021-04-23] MEDS: Aspirin E.C. 81 MG Tablet PO (07:53)
[2021-04-23] MEDS: Potassium Chloride Oral Tablet 20 MEQ PO (07:53)
--- NOTE | 2021-04-23 08:25 | CASEMGMT ---
Addendum entered by Laury Llamas 04/24/21 13:55: ST requesting order for HHC. Contacted [facility]. Original Note: Social Work contacted this worker. Discussed insurance issuing DC date 04/25. agreeable and feels she can take care of him at home. agreeable to HHC - requesting [facility]. Referral made for PT/OT/SN. SOC 04/28. No DME needs. to transport after work. Plan: DC home with 04/25, [facility] PT/OT/SN Laury Llamas, KAMILA RUSTW
[2021-04-23] MEDS: Ferrous Sulfate 325 MG Tablet PO (11:57)
[2021-04-23] MEDS: Acetaminophen 500 MG Tablet 1000 MG PO (13:01)
[2021-04-23 16:51] VITALS: BP 102/53; PULSE 90; RESP 18; TEMP 36.5; O2SAT 94
--- NOTE | 2021-04-23 19:40 | DS.PCM_ITS ---
Providers Date of Admission: 04/11/21 Primary Care Physician: SACHIN Torres Reason For Visit: R TOTAL HIP REPLACEMENT Diagnosis Discharge Diagnosis (1) History of total right hip replacement: Status: Acute Code(s): Z96.641 - Presence of right artificial hip joint (2) Debility: Status: Acute Code(s): R53.81 - Other malaise (3) Osteoarthritis of right hip: Status: Acute Code(s): M16.11 - Unilateral primary osteoarthritis, right hip (4) Encephalopathy: Status: Acute Code(s): G93.40 - Encephalopathy, unspecified (5) Obstructive sleep apnea: Status: Acute Code(s): G47.33 - Obstructive sleep apnea (adult) (pediatric) (6) Benign prostate hyperplasia: Status: Acute Code(s): N40.0 - Benign prostatic hyperplasia without lower urinary tract symptoms (7) Psoriasis: Status: Acute Code(s): L40.9 - Psoriasis, unspecified (8) Mild cognitive impairment: Status: Acute Code(s): G31.84 - Mild cognitive impairment, so stated (9) History of basal cell cancer: Status: Acute Code(s): Z85.828 - Personal history of other malignant neoplasm of skin Medications at Discharge Home Medications acetaminophen 1,000 mg PO Q8H PRN 04/11/21 aspirin 81 mg PO DAILY 04/11/21 ferrous sulfate 325 mg PO DAILY 04/11/21 tamsulosin 0.4 mg PO DAILY 04/11/21 potassium chloride [Klor-Con M20] 20 meq PO DAILYCM 30 Days #30 tab 04/23/21 Hospital Course Operations total hip replacement (Right.) Procedures None Summary of Care Provided Minutes Spent on Discharge: 35 Hospital Course: 65 year old male with below past medical history hospitalized right total hip replacement 04/09/[address] Foley, admitted to TCU with debility, here for rehabilitation, strengthening, prior to discharge home with . Discharge home with 04/25/2021, [facility] PT/OT/SN. Physical Exam Const alert and oriented x3 General Appearance: cooperative HEENT normocephalic Eyes PERRL and EOMs intact bilaterally Neck supple, no JVD and no carotid bruits Resp normal respiratory effort, normal air movement and clear to auscultation bilaterally Cardio regular rate and regular rhythm GI normal to inspection, nondistended, normoactive bowel sounds, non-tender and non-distended Extremity normal capillary refill General Extremity: Negative for edema Skin no rashes or lesions noted General Skin Exam: no breakdown Psych affect normal Appearance: appropriate Weight / BMI Weight Weight: 90.974 kg Body Mass Index (BMI) 25.2 ABG / Lab / Microbiology Data Result Diagrams: 04/19/21 07:00 04/19/21 07:00 Microbiology: Microbiology 04/13/21 13:00 Urine, Catheterized Urine Culture - Final Culture exhibits no growth. D/C Instructions Discharge Diet: No restrictions Discharge Activity: Return to Normal Activity, May Shower and Use Walker Weight Bearing Status: Weight bearing as tolerated Call your doctor if you observe: Fever of 101 or Higher, Inability to urinate, Inability to have a bowel movement, Shortness of breath, Dizziness, Fainting spells, Swelling in the ankles, Chest pain and Uncontrolled pain Additional Instructions: Discharge home with 04/25/2021, [facility] PT/OT/SN. Please Follow Up With: Danna Motta PA (Ortho) When: As scheduled. Meaningful Use Info Meaningful Use Diagnoses (Choose all that apply): None applicable Discharge Plan Admission Admit Date/Time: 04/11/21 13:45 Primary Reason for Your Visit: Debility. Attending Provider: Bridger Santos Chi Primary Care Provider: Clifton Doran Instructions Additional Instructions / Restrictions: Discharge home with 04/25/2021, [facility] Care PT/OT/SN. Discharge Orders/Prescriptions Prescriptions: New potassium chloride [Klor-Con M20] 20 mEq Tablet,Er Particles/Crystals 20 meq PO DAILYCM 30 Days Qty: 30 RF: 0 Continued aspirin 81 mg Tablet,Delayed Release (Dr/Ec) 81 mg PO DAILY RF: 0 acetaminophen 500 mg Tablet 1,000 mg PO Q8H PRN (Reason: Pain (Scale Score 1-10)) RF: 0 tamsulosin 0.4 mg Capsule 0.4 mg PO DAILY RF: 0 ferrous sulfate 325 mg (65 mg iron) Tablet 325 mg PO DAILY RF: 0 Discontinued lisinopril 20 mg Tablet 20 mg PO DAILY RF: 0 Gladis-D 24 Hour 180-240 mg Tablet Extended Release 24 Hr 1 tab PO DAILY RF: 0 meclizine 25 mg tablet 25 mg PO TID PRN (Reason: dizziness) Qty: 20 RF: 0 tramadol 50 mg Tablet 50 mg PO Q6H PRN (Reason: Pain) RF: 0 senna 8.6 mg Capsule 8.6 mg PO DAILY RF: 0 Referrals / Follow Up: Clifton Doran PA [Primary Care Provider] - Disposition Disposition (needs filled in before D/C Order can be placed): Home Health Service
[2021-04-23 20:22] VITALS: PULSE 106; RESP 16; O2SAT 94
[2021-04-24] MEDS: Tamsulosin HCl 0.4 MG Capsule PO (06:07)
[2021-04-24] MEDS: Enoxaparin 40 MG/0.4 ML Syringe SC (06:07)
[2021-04-24] MEDS: Loratadine 10 MG Tablet PO (06:07)
[2021-04-24] MEDS: Senna/Docusate Sodium 1 Tablet PO ×2 (06:08→17:09)
[2021-04-24] MEDS: Polyethylene Glycol 3350 17 GM PACKET PO (06:08)
--- NOTE | 2021-04-24 07:34 | MDS.RN ---
Information for the mds was obtained from review of the clinical record, interview of resident, staff, and direct observation of resident's care.
[2021-04-24] MEDS: Potassium Chloride Oral Tablet 20 MEQ PO (07:53)
[2021-04-24] MEDS: Aspirin E.C. 81 MG Tablet PO (07:53)
[2021-04-24 10:00] VITALS: PULSE 111; RESP 18; O2SAT 97
[2021-04-24] MEDS: Ferrous Sulfate 325 MG Tablet PO (11:20)
[2021-04-24 12:45] VITALS: BP 125/73; PULSE 107; RESP 18; TEMP 36.8; O2SAT 91
[2021-04-24] MEDS: Acetaminophen 500 MG Tablet 1000 MG PO (19:56)
[2021-04-25] MEDS: Polyethylene Glycol 3350 17 GM PACKET PO (06:14)
[2021-04-25] MEDS: Loratadine 10 MG Tablet PO (06:16)
[2021-04-25] MEDS: Tamsulosin HCl 0.4 MG Capsule PO (06:16)
[2021-04-25] MEDS: Enoxaparin 40 MG/0.4 ML Syringe SC (06:16)
[2021-04-25] MEDS: Senna/Docusate Sodium 1 Tablet PO ×2 (06:16→16:52)
[2021-04-25] MEDS: Aspirin E.C. 81 MG Tablet PO (09:08)
[2021-04-25] MEDS: Potassium Chloride Oral Tablet 20 MEQ PO (09:08)
[2021-04-25 10:00] VITALS: PULSE 81; RESP 18; O2SAT 95
[2021-04-25] MEDS: Ferrous Sulfate 325 MG Tablet PO (12:14)
[2021-04-25 15:19] VITALS: BP 121/69; PULSE 93; RESP 16; TEMP 37; O2SAT 98
== END 2021-04-25 17:15 | disposition home health service (06) | DRG 561 ==
PROVIDERS: Admitting Provider Family Medicine Geriatric Medicine; PCP Physician Assistant; Visit Provider Family Medicine Geriatric Medicine
DX: Z47.1 Aftercare following joint replacement surgery (principal); Z96.641 Presence of right artificial hip joint; I10 Essential (primary) hypertension; G31.84 Mild cognitive impairment of uncertain or unknown etiology; Z23 Encounter for immunization; M16.11 Unilateral primary osteoarthritis, right hip; G47.33 Obstructive sleep apnea (adult) (pediatric); N40.0 Benign prostatic hyperplasia without lower urinary tract symptoms; D50.9 Iron deficiency anemia, unspecified; L40.9 Psoriasis, unspecified; Z79.899 Other long term (current) drug therapy; Z87.891 Personal history of nicotine dependence; Z79.82 Long term (current) use of aspirin
CPT/HCPCS: 36415; 80048; 81001; 85025; 87086; 92507; 92523; 97110; 97116; 97162; 97166; 97530; 97535; 97802; G0008; G0009; J7030; 90670; 90686; A4216

== ENCOUNTER 2021-06-15 05:17 | Emergency (ER) | payer MEDICARE, SELFPAY ==
[2021-06-15] VITALS (7 sets, daily range): BP systolic 115–143; BP diastolic 67–85; PULSE 78–126; RESP 16–20; TEMP 37.2–39.6; O2SAT 88–97; BMI 23.7
--- NOTE | 2021-06-15 05:37 | EKG12_ITS ---
Test Reason : FEVER Blood Pressure : / mmHG Vent. Rate : 115 BPM Atrial Rate : 115 BPM P-R Int : 126 ms QRS Dur : 106 ms QT Int : 324 ms P-R-T Axes : 037 -20 037 degrees QTc Int : 448 ms Sinus tachycardia Leftward axis Confirmed by KENYETTA GARAY, NORMA ([id number]), editor city DEBORA RAMIREZ ([id number]) on 06/18/2021 8:59:03 AM Referred By: BANDAR Confirmed By:NORMA KUMARI MD
[2021-06-15 05:56] LABS: Absolute Lymphocyte Count 0.78 X10^3/uL (0.83-4.51); Absolute Neutrophil Count 12.8 X10^3/uL (2.0-7.7); Basophil# 0.03 X10^3/uL; Basophil% 0.2 % (0-1); Eosinophil# 0.01 X10^3/uL; Eosinophils% 0.1 % (0-5); Hematocrit 39.5 % (40-54); Hemoglobin 13.4 g/dL (13.0-16.5); Lymphocyte # 0.78 X10^3/ul (0.83-4.51); Lymphocyte % 5.2 % (19-41); Mean Corp Hgb Conc 33.9 g/dL (32-36); Mean Corpuscular Hgb 31.1 pg (27.0-32.0); Mean Corpuscular Volume 91.6 fL (80-94); Mean Platelet Vol. 9.8 fl (6.2-12.0); Monocyte% 7.4 % (0-10); NRBC Flagged by Analyzer 0 % (0-5); Neutrophil # 12.83 X10^3/uL (2.7-7.7); Neutrophil % 85.9 % (47-70); Platelet Count 592 K/mm3 (150-450); RBC Distribution Width CV 13.2 % (11.6-14.6); RBC Distribution Width SD 45.1 fl (35.1-43.9); Red Blood Count 4.31 M/mm3 (4.6-6.2); White Blood Count 14.9 K/mm3 (4.4-11.0)
--- NOTE | 2021-06-15 05:59 | EDS_ITS ---
HPI History of Present Illness Chief Complaint: Fever Narrative Narrative: Patient is a 65-year-old male with past medical history of Alzheimer's disease. states that he has had mild congestion cough for 5 to 7 days. She states that he went and had an outpatient Covid test at the [facility] office just 2 days ago. She reports this was positive. She states that during the last 3 days patient is spiked fevers up to 103 and with this has had some cough and fatigue. She states that she felt his breathing was more difficult today and with his persistent high fever was concern for another type of infectious process and therefore brings him in for evaluation. Please note patient does not offer much history based on his Alzheimer status [facility] Medical History (Updated 06/15/21 @ 07:[address] Conrado Gonzales DO) Allergies Alzheimer disease Arthritis Hypertension Tremor Home Medications acetaminophen 1,000 mg PO Q8H PRN 04/11/21 [History Last Taken Unknown] aspirin 81 mg PO DAILY 04/11/21 [History Last Taken Unknown] ferrous sulfate 325 mg PO DAILY 04/11/21 [History Last Taken Unknown] potassium chloride [Klor-Con M20] 20 meq PO DAILYCM 30 Days #30 tab 04/23/21 [Rx Last Taken Unknown] albuterol sulfate 1 inh INHALATION Q4H PRN PRN 06/15/21 [History Last Taken Unknown] dexamethasone [Decadron] 6 mg PO DAILY 10 Days #10 tab 06/15/21 [Rx Last Taken Unknown] doxycycline monohydrate 100 mg PO BID 06/15/21 [History Last Taken Unknown] fluticasone propionate 1 spray INTRANASAL DAILY 06/15/21 [History Last Taken Unknown] lisinopril-hydrochlorothiazide 1 tab PO DAILY 06/15/21 [History Last Taken Unknown] loratadine 10 mg PO DAILY 06/15/21 [History Last Taken Unknown] prednisone 50 mg PO DAILY 06/15/21 [History Last Taken Unknown] Allergy/AdvReac Type Severity Reaction Status Date / Time celecoxib [From Celebrex] AdvReac Upset Verified 06/15/21 05:21 Stomach Family History (Updated 04/11/21 @ 16:[address] Bridger Santos MD) Mother Cancer Father Alzheimer disease Prostate cancer Sister Lymphoma Social History Smoking Status: Former smoker ROS ROS ED Constitutional Constitutional ED: Reports fever(s); Denies chills ENT ENT ED: Reports rhinorrhea and sore throat Cardiovascular Cardiovascular: Denies chest pain Respiratory/Chest Respiratory/Chest: Reports cough and dyspnea Gastrointestinal Gastrointestinal: Denies abdominal pain, diarrhea, nausea or vomiting Genitourinary Genitourinary ED: Denies dysuria Musculoskeletal Musculoskeletal: Reports myalgias Integumentary Denies rash Neurologic Neurologic: Denies headache(s) Hematologic/Lymphatic Hematologic/Lymphatic: Denies easy bleeding or easy bruising EXAM Physical Exam Const Vital Signs: 06/15/21 05:18 06/15/21 05:21 06/15/21 06:39 Temperature 103.2 F H 103.2 F H 103.2 F H Temperature Source Oral Oral Oral Pulse Rate 126 H 126 H 126 H Respiratory Rate 20 H 20 H 20 H Blood Pressure 143/85 H 143/85 H 143/85 H Blood Pressure Mean 104 104 104 Pulse Ox 95 95 95 Oxygen Delivery Method Room Air Room Air Room Air Oxygen Flow Rate (L/min) 06/15/21 07:10 06/15/21 07:31 Temperature 98.9 F Temperature Source Oral Pulse Rate 101 H 105 H Respiratory Rate 16 Blood Pressure 115/67 Blood Pressure Mean 83 Pulse Ox 88 92 Oxygen Delivery Method Room Air Nasal Cannula Oxygen Flow Rate (L/min) 2 Positive well nourished and well developed General Appearance ED: well developed HEENT Reports moist mucous membranes HEENT Narrative: Cobblestoning the posterior pharynx consistent with sinus drainage no airway edema or compromise Eyes PERRL and EOMs intact bilaterally Neck supple Neck Narrative: Positive anterior cervical lymphadenopathy noted Chest Wall palpation of chest normal Resp Resp Narrative: Breath sounds are diminished throughout with faint wheeze and rhonchi in the right lower lobe. There is mild accessory muscle use but otherwise no nasal flaring or retractions noted Cardio regular rhythm Rate: tachycardic and other Other Details: Tachycardic rate with regular rhythm radial pulses are +2-4 bilaterally they are equal and symmetric intubated GI normal to inspection, nondistended, normoactive bowel sounds, non-tender, non- distended and no masses GI Narrative: No voluntary guarding or rigidity no pulsatile Auscultation: normoactive bowel sounds Palpation: soft Extremity normal to inspection Extremity Narrative: No asymmetric edema no pitting edema negative Homans' sign bilaterally Neuro CN's II-XII intact bilaterally Neuro Narrative: Patient is at his baseline mental status with no focal neurologic deficit Sensorium / Orientation: alert Motor Exam: strength 5/5 throughout Psych mental status grossly normal Skin Skin Narrative: Patient has history of psoriasis and chronic changes from this but no signs of acute infection MDM MDM MDM Narrative Medical decision making narrative: Patient presented to the ER febrile and tachycardic. However reported that he tested positive for Covid just 2 days ago. He had mild increased work of breathing but otherwise had no secondary changes to his skin to suggest infection and a soft nonsurgical abdomen. With his recent Covid diagnosis and tachycardia I did elect initially order a CTA to rule out PE as did have concern for this. However blood work shows that his kidney function is not elevated with a creatinine 2.58 and therefore this CAT scan cannot be obtained. Chest x-ray was ordered in his place and does show some inflammatory changes in the bilateral lung schumacher consistent with his recent diagnosis of Covid and Covid pneumonia. After IV hydration and Tylenol patient's temperature and heart rate improved. However his oxygen level did drop to 88%. Secondary to this he was placed on 2 L of nasal cannula oxygen and it did improve his value to approximately 92%. I did discuss the case with the hospitalist based on the patient's elevated kidney function and mild hypoxia. Hospitalist feels that if we can get him on supplemental oxygen that with the IV hydration he received here that he should be able to be discharged and return if symptoms worsen. Lab Data Attestation: I reviewed the patient's lab results. Labs: Laboratory Results - last 24 hr 06/15/21 06/15/21 06/15/21 05:45 05:45 05:45 WBC 14.9 H RBC 4.31 L Hgb 13.4 Hct 39.5 L MCV 91.6 MCH 31.1 MCHC 33.9 RDW Std Deviation 45.1 H RDW Coeff of Magda 13.2 Plt Count 592 H MPV 9.8 Immature Gran % (Auto) 1.200 H Neut % (Auto) 85.9 H Lymph % (Auto) 5.2 L Teller % (Auto) 7.4 Eos % (Auto) 0.1 Baso % (Auto) 0.2 Absolute Neuts (auto) 12.8 H Absolute Lymphs (auto) 0.78 L Nucleated RBC % 0 PT 15.4 H INR 1.3 APTT 39.8 H Sodium 139 Potassium 3.2 L Chloride 104 Carbon Dioxide 25.0 Anion Gap 10 BUN 56 H Creatinine 2.58 H Estim Creat Clear Calc 32.30 Est GFR (MDRD) Af Amer 32 L Est GFR (MDRD) Non-Af 27 L BUN/Creatinine Ratio 21.7 H Glucose 124 H Calcium 8.9 Magnesium 2.3 Troponin I High Sens 13 Discharge Plan Triage Chief Complaint: Fever ED Provider: Conrado Gonzales Dx/Rx/DC Orders Clinical Impression: Pneumonia due to 2019 novel coronavirus, Glhog-hh-perbsbi kidney injury Instructions: Coronavirus Disease 2019 (COVID-19): Caring for Yourself or Others, Dehydration Prescriptions: New dexamethasone [Decadron] 6 mg tablet 6 mg PO DAILY 10 Days Qty: 10 RF: 0 No Action aspirin 81 mg Tablet,Delayed Release (Dr/Ec) 81 mg PO DAILY RF: 0 acetaminophen 500 mg Tablet 1,000 mg PO Q8H PRN (Reason: Pain (Scale Score 1-10)) RF: 0 ferrous sulfate 325 mg (65 mg iron) Tablet 325 mg PO DAILY RF: 0 potassium chloride [Klor-Con M20] 20 mEq Tablet,Er Particles/Crystals 20 meq PO DAILYCM 30 Days Qty: 30 RF: 0 lisinopril-hydrochlorothiazide 20-12.5 mg tablet 1 tab PO DAILY RF: 0 doxycycline monohydrate 100 mg tablet 100 mg PO BID RF: 0 prednisone 50 mg tablet 50 mg PO DAILY RF: 0 albuterol sulfate 90 mcg/actuation HFA aerosol inhaler 1 inh INHALATION Q4H PRN PRN (Reason: Shortness Of Breath Or Wheezing) RF: 0 fluticasone propionate 50 mcg/actuation spray,suspension 1 spray INTRANASAL DAILY RF: 0 loratadine 10 mg tablet 10 mg PO DAILY RF: 0 Primary Care Provider: Clifton Doran Referrals: Clifton Doran, PA [Primary Care Provider] - Disposition Disposition: Home, Self Care
[2021-06-15] MEDS: Acetaminophen 500 MG Tablet 1000 MG PO (06:00)
[2021-06-15] MEDS: 0.9% Normal Saline 1,000 ML 999 ML IV (06:00)
[2021-06-15] MEDS: dexAMETHasone 10 MG/ML Vial IV (06:00)
[2021-06-15 06:10] LABS: International Normalized Ratio 1.3; Prothrombin Time (Protime)PT. 15.4 SECONDS (11.7-14.9)
[2021-06-15 06:11] LABS: Partial Thromboplast Time 39.8 Seconds (24.1-36.2)
[2021-06-15 06:24] LABS: Anion Gap 10 (5-15); BUN 56 mg/dL (7-18); BUN/Creat Ratio 21.7 RATIO (10-20); Calcium,Total 8.9 mg/dL (8.5-10.1); Chloride 104 mmol/L (98-107); Creatinine, Serum 2.58 mg/dL (0.70-1.30); EST Glomerular Filtration Rate 27 mL/min (>60); Est Glom Filt Rate - Afr Amer 32 mL/min (>60); Glucose 124 mg/dL (74-106); Magnesium 2.3 mg/dL (1.6-2.6); Potassium 3.2 mmol/L (3.5-5.1); Sodium Level 139 mmol/L (136-145); Troponin-I HS 13 pg/mL (3.0-78.0)
--- NOTE | 2021-06-15 06:50 | RAD_ITS ---
HISTORY: cough. TECHNIQUE: XR Chest 1 View. # of images incl. paperwork: 2. COMPARISON: None. FINDINGS: CARDIOMEDIASTINAL STRUCTURES: Cardiac silhouette not enlarged. Mediastinal contour unremarkable. LUNGS: Left perihilar and mild linear bibasilar opacities. PLEURA: No pleural effusion or pneumothorax. OSSEOUS STRUCTURES: Degenerative change. RAD/Chest 1 View (Portable) IMPRESSION: Left perihilar and mild bibasilar opacities from atelectasis or pneumonia. at 0822 Reported and signed by: Darlene Meza MD Electronically Signed: Darlene Meza MD at 8:21 EST Tel , Service support ,
[2021-06-15] MEDS: 0.9% Normal Saline 1,000 ML 100 ML IV (07:34)
[2021-06-15] MEDS: Potassium Chloride Oral Tablet 20 MEQ 40 MEQ PO (08:39)
== END 2021-06-15 09:24 | disposition home or self-care (01) ==
PROVIDERS: Emergency Provider Emergency Medicine; PCP Physician Assistant
DX: U07.1 COVID-19 (principal); J12.82 Pneumonia due to coronavirus disease 2019; N17.9 Acute kidney failure, unspecified; G30.9 Alzheimer's disease, unspecified; F02.80 Dementia in other diseases classified elsewhere, unspecified severity, without behavioral disturbance, psychotic disturbance, mood disturbance, and anxiety; I10 Essential (primary) hypertension; M19.90 Unspecified osteoarthritis, unspecified site; Z79.52 Long term (current) use of systemic steroids; Z79.82 Long term (current) use of aspirin; Z87.891 Personal history of nicotine dependence; Z79.899 Other long term (current) drug therapy
CPT/HCPCS: 71045; 80048; 83735; 84484; 85025; 85610; 85730; 93005; 96361; 96374; 99283; J7030; A4216

== ENCOUNTER 2021-06-17 07:11 | Emergency (ER) | payer MEDICARE, SELFPAY ==
[2021-06-17 07:14] VITALS: BP 134/72; PULSE 140; RESP 20; TEMP 37.1; O2SAT 88; BMI 26.4
[2021-06-17 07:19] VITALS: BP 134/72; PULSE 140; RESP 20; TEMP 37.1; O2SAT 88
--- NOTE | 2021-06-17 08:06 | EDS_ITS ---
HPI History of Present Illness Chief Complaint: Cough Informant: patient and spouse/S.O. Onset/Context/Timing Onset: Days (10+) Context: Gradual Onset Timing: Continuous Quality: cough, sob Current Severity: Moderate Maximum Severity: Moderate Worsened by: exertion, coughing Relieved by: resting, oxygen Associated Symptoms Associated Symptoms ED: cough Narrative Narrative: Pt has Covid, on oxygen which was started 2-3 days ago at last ED visit, having increasing disorientation/confusion than normal w/ his Alzheimer's dementia, so brought him in for a recheck essentially. Also new is occasional urinary incontinence. Not new or necessarily worse per is dyspnea w/ exertion, malaise/weakness, loose stool diarrhea w/o blood, and aches & pains. Pt started w/ URI sx almost 2.5 wks ago, seen at urgent care and had neg Covid test at that time, was started on antibiotics for poss sinus infection. She states that about a week later, more coughing, then had covid swab that turned out positive, which was about 4-5 days ago. Therefore, pt likely at or beyond the 10-day point now; has not been treated w/ monoclonal Ab but did get moderna vaccine inj x 2. [facility] Medical History Allergies Alzheimer disease Arthritis Hypertension Tremor Home Medications acetaminophen 1,000 mg PO Q8H PRN 04/11/21 [History Last Taken Unknown] aspirin 81 mg PO DAILY 04/11/21 [History Last Taken Unknown] ferrous sulfate 325 mg PO DAILY 04/11/21 [History Last Taken Unknown] potassium chloride [Klor-Con M20] 20 meq PO DAILYCM 30 Days #30 tab 04/23/21 [Rx Last Taken Unknown] albuterol sulfate 1 inh INHALATION Q4H PRN PRN 06/15/21 [History Last Taken Unknown] dexamethasone [Decadron] 6 mg PO DAILY 10 Days #10 tab 06/15/21 [Rx Last Taken Unknown] doxycycline monohydrate 100 mg PO BID 06/15/21 [History Last Taken Unknown] fluticasone propionate 1 spray INTRANASAL DAILY 06/15/21 [History Last Taken Unknown] lisinopril-hydrochlorothiazide 1 tab PO DAILY 06/15/21 [History Last Taken Unknown] loratadine 10 mg PO DAILY 06/15/21 [History Last Taken Unknown] prednisone 50 mg PO DAILY 06/15/21 [History Last Taken Unknown] Allergy/AdvReac Type Severity Reaction Status Date / Time cefaclor [From Ceclor] AdvReac Nausea Verified 06/17/21 07:20 celecoxib [From Celebrex] AdvReac Upset Verified 06/17/21 07:19 Stomach Family History Mother Cancer Father Alzheimer disease Prostate cancer Sister Lymphoma Social History Smoking Status: Former smoker ROS ROS ED Constitutional Constitutional ED: Reports body ache(s), chills, fatigue, fever(s), headache(s) and malaise Eyes Eyes: Denies change in vision or diplopia ENT ENT ED: Denies rhinorrhea or sore throat Cardiovascular Cardiovascular: Denies chest pain or palpitations Respiratory/Chest Respiratory/Chest: Reports cough, dyspnea and dyspnea on exertion Gastrointestinal Gastrointestinal: Reports diarrhea; Denies abdominal pain, nausea or vomiting Genitourinary Genitourinary ED: Reports urinary incontinence; Denies dysuria, flank pain or hematuria Musculoskeletal Musculoskeletal: Denies back pain or neck pain Integumentary Denies abscess or rash Neurologic Neurologic: Reports as per HPI, confusion and headache(s); Denies paresthesias or weakness Psychiatric Psychiatric: Denies anxiety or suicidal thoughts EXAM Physical Exam Const Vital Signs: 06/17/21 07:14 06/17/21 07:19 06/17/21 08:12 Temperature 98.8 F 98.8 F Temperature Source Oral Oral Pulse Rate 140 H 140 H Respiratory Rate 20 H 20 H Blood Pressure 134/72 H 134/72 H Blood Pressure Mean 92 92 Pulse Ox 88 88 Oxygen Delivery Method Nasal Cannula Nasal Cannula Nasal Cannula Oxygen Flow Rate (L/min) 2 2 4 Positive well nourished and well developed Constitutional Narrative: Malaised-appearing, no distress, conversive in short sentences w/o distress. General Appearance ED: well developed and NAD HEENT Reports moist mucous membranes normocephalic and atraumatic Eyes PERRL and EOMs intact bilaterally Neck full ROM, no lymphadenopathy, supple and no meningeal signs Resp normal respiratory effort and clear to auscultation bilaterally Cardio regular rate, regular rhythm and no murmurs Rate: tachycardic GI non-tender and non-distended Auscultation: normoactive bowel sounds Palpation: soft Back/Spine no CVA tenderness General Back: other FROM Extremity normal to inspection and no calf tenderness General Extremety ED: Negative for edema, pulses abnormal or tenderness General Extremity: Negative for edema or pulses abnormal Neuro CN's II-XII intact bilaterally and no sensory deficits noted Sensorium / Orientation: awake, alert, oriented to person, oriented to place and orientation impaired; Negative for oriented to time Motor Exam: strength 5/5 throughout Skin no rashes or lesions noted and no wounds MDM MDM MDM Narrative Medical decision making narrative: Pt's vital signs normalized w/ nothing but rest and IVF in ED. His pulse ox is 92% on 2L NC. His workup shows resolution of the LUISA that he had several days ago, now at his baseline range of BUN & Creatinine. Other labs look good, no sign of a UTI. He is appropriate for a mildly demented pt during my interactions with him. states at home, he ran some hot water in the tub randomly and when she asked him why, he said he was going to boil some eggs. No dangerous actions to this point; she is there to monitor him. As I discussed w/ her, I suspect his behavior is related to the current illness and his baseline dementia. We do not have any beds inpt at this time, but he does not need a bed medically since he has oxygen at home. We discussed titrating this, and reasons to return, including requiring more than 4L at rest. He is already on dexamethasone for Covid. Lab Data Attestation: I reviewed the patient's lab results. Labs: Laboratory Results - last 24 hr 06/17/21 06/17/21 06/17/21 08:05 08:05 08:27 WBC 13.9 H RBC 4.29 L Hgb 12.9 L Hct 38.8 L MCV 90.4 MCH 30.1 MCHC 33.2 RDW Std Deviation 45.3 H RDW Coeff of Magda 13.6 Plt Count 579 H MPV 9.8 Immature Gran % (Auto) 1.400 H Neut % (Auto) 89.4 H Lymph % (Auto) 4.3 L [place] % (Auto) 4.2 Eos % (Auto) 0.4 Baso % (Auto) 0.3 Absolute Neuts (auto) 12.4 H Absolute Lymphs (auto) 0.60 L Nucleated RBC % 0 Sodium 138 Potassium 3.4 L Chloride 105 Carbon Dioxide 24.0 Anion Gap 9 BUN 36 H Creatinine 1.64 H Estim Creat Clear Calc 50.82 Est GFR (MDRD) Af Amer 54 L Est GFR (MDRD) Non-Af 45 L BUN/Creatinine Ratio 22.0 H Glucose 116 H Calcium 9.3 Troponin I High Sens 13 Urine Color Yellow Urine Clarity Sl. Cloudy Urine pH 5.0 Ur Specific [place] 1.015 Urine Protein 100 H Urine Glucose (UA) Normal Urine Ketones Negative Urine Occult Blood 150 H Urine Nitrite Negative Urine Bilirubin Negative Urine Urobilinogen 1 H Ur Leukocyte Esterase Negative Urine RBC 5-10 SEEN Urine WBC 0 SEEN Ur Squamous Epith Cells 0 SEEN Amorphous Sediment 2+ Urine Bacteria 1+ Urine Mucus 0 SEEN Rhythm Strip Rhythm Strip: Sinus Rhythm Rate: 92 (after resting in ED w/ some IVF) Ectopy: None Discharge Plan Triage Chief Complaint: Cough ED Provider: Jose A Richardson Dx/Rx/DC Orders Clinical Impression: Pneumonia due to 2019 novel coronavirus, Mild cognitive impairment, Hypoxemia Instructions: Coronavirus Disease 2019 (COVID-19): Caring for Yourself or Others Prescriptions: No Action aspirin 81 mg Tablet,Delayed Release (Dr/Ec) 81 mg PO DAILY RF: 0 acetaminophen 500 mg Tablet 1,000 mg PO Q8H PRN (Reason: Pain (Scale Score 1-10)) RF: 0 ferrous sulfate 325 mg (65 mg iron) Tablet 325 mg PO DAILY RF: 0 potassium chloride [Klor-Con M20] 20 mEq Tablet,Er Particles/Crystals 20 meq PO DAILYCM 30 Days Qty: 30 RF: 0 lisinopril-hydrochlorothiazide 20-12.5 mg tablet 1 tab PO DAILY RF: 0 doxycycline monohydrate 100 mg tablet 100 mg PO BID RF: 0 prednisone 50 mg tablet 50 mg PO DAILY RF: 0 albuterol sulfate 90 mcg/actuation HFA aerosol inhaler 1 inh INHALATION Q4H PRN PRN (Reason: Shortness Of Breath Or Wheezing) RF: 0 fluticasone propionate 50 mcg/actuation spray,suspension 1 spray INTRANASAL DAILY RF: 0 loratadine 10 mg tablet 10 mg PO DAILY RF: 0 dexamethasone [Decadron] 6 mg tablet 6 mg PO DAILY 10 Days Qty: 10 RF: 0 Primary Care Provider: Clifton Doran Referrals: Clifton Doran, PA [Primary Care Provider] - As Needed Disposition Disposition: Home, Self Care
[2021-06-17] MEDS: 0.9% Normal Saline 1,000 ML 200 ML IV (08:14)
[2021-06-17 08:28] LABS: Absolute Neutrophil Count 12.4 X10^3/uL (2.0-7.7); Basophil# 0.04 X10^3/uL; Basophil% 0.3 % (0-1); Differential Indicated SCAN CRITERIA MET; Eosinophil# 0.06 X10^3/uL; Eosinophils% 0.4 % (0-5); Hematocrit 38.8 % (40-54); Hemoglobin 12.9 g/dL (13.0-16.5); Lymphocyte % 4.3 % (19-41); Mean Corp Hgb Conc 33.2 g/dL (32-36); Mean Corpuscular Hgb 30.1 pg (27.0-32.0); Mean Corpuscular Volume 90.4 fL (80-94); Mean Platelet Vol. 9.8 fl (6.2-12.0); Monocyte# 0.58 X10^3/uL; Monocyte% 4.2 % (0-10); NRBC Flagged by Analyzer 0 % (0-5); Neutrophil # 12.43 X10^3/uL (2.7-7.7); Neutrophil % 89.4 % (47-70); POSITIVE DIFFERENTIAL YES; Platelet Count 579 K/mm3 (150-450); RBC Distribution Width CV 13.6 % (11.6-14.6); RBC Distribution Width SD 45.3 fl (35.1-43.9); Red Blood Count 4.29 M/mm3 (4.6-6.2); White Blood Count 13.9 K/mm3 (4.4-11.0)
[2021-06-17 08:38] LABS: Mucous, Urine 0 SEEN /hpf (<or=2+); Squamous Epithelial Cells - UA 0 SEEN /hpf (0-5); White Blood Cells 0 SEEN /hpf (0-5)
[2021-06-17 08:40] LABS: Color, Urine Yellow (Yellow); Glucose, Dipstick Normal (Normal); Ketone-Dipstick Negative (Negative); Leukocyte Esterase-Dipstick Negative /ul (Negative); Nitrite-Dipstick Negative (Negative); Occult Blood-Urine 150 /ul (Negative); Protein-Dipstick 100 mg/dl (Negative); Specific Gravity, Urine 1.015 (1.002-1.030); Urine Bilirubin Dipstick Negative (Negative); Urine Clarity Sl. Cloudy (Clear); Urine Urobilinogen 1 mg/dl (Normal)
[2021-06-17 08:46] LABS: Anion Gap 9 (5-15); BUN 36 mg/dL (7-18); Calcium,Total 9.3 mg/dL (8.5-10.1); Chloride 105 mmol/L (98-107); Creatinine, Serum 1.64 mg/dL (0.70-1.30); EST Glomerular Filtration Rate 45 mL/min (>60); Est Glom Filt Rate - Afr Amer 54 mL/min (>60); Estimated Creatinine Clearance 50.82 ml/min; Glucose 116 mg/dL (74-106); Potassium 3.4 mmol/L (3.5-5.1); Sodium Level 138 mmol/L (136-145); Troponin-I HS 13 pg/mL (3.0-78.0)
[2021-06-17 08:49] LABS: Amorphous Sediment 2+; Bacteria 1+ /hpf (None Seen); Red Blood Cells-Urine 5-10 SEEN /hpf (0-5)
[2021-06-17 09:31] VITALS: BP 124/78; PULSE 87; RESP 24; O2SAT 91
== END 2021-06-17 09:57 | disposition home or self-care (01) ==
PROVIDERS: Emergency Provider Emergency Medicine; PCP Physician Assistant
DX: U07.1 COVID-19 (principal); J12.82 Pneumonia due to coronavirus disease 2019; G30.9 Alzheimer's disease, unspecified; F02.80 Dementia in other diseases classified elsewhere, unspecified severity, without behavioral disturbance, psychotic disturbance, mood disturbance, and anxiety; R09.02 Hypoxemia; I10 Essential (primary) hypertension; Z79.52 Long term (current) use of systemic steroids; Z79.1 Long term (current) use of non-steroidal anti-inflammatories (NSAID); Z79.82 Long term (current) use of aspirin; Z87.891 Personal history of nicotine dependence; Z79.899 Other long term (current) drug therapy
CPT/HCPCS: 80048; 81001; 84484; 85025; 99284; J7030; A4216

== ENCOUNTER 2021-07-04 13:33 | Emergency (ER) | payer MEDICARE, SELFPAY ==
[2021-07-04 13:34] VITALS: BP 134/69; PULSE 76; RESP 18; TEMP 36.2; O2SAT 100; BMI 21.8
--- NOTE | 2021-07-04 13:42 | ED.RN ---
PT AND DECIDED NOT TO STAY AFTER SPO2 BEING 100% HERE. ADVISED TO GET A BETTER PULSE OX FOR PT.,
== END 2021-07-04 13:48 | disposition left against medical advice (07) ==
LOC: ED 13:52
PROVIDERS: PCP Physician Assistant
DX: R06.02 Shortness of breath (principal); Z53.21 Procedure and treatment not carried out due to patient leaving prior to being seen by health care provider

== ENCOUNTER 2022-01-27 20:12 | Emergency (ER) | payer MEDICARE, SELFPAY ==
[2022-01-27] VITALS (9 sets, daily range): BP systolic 124–169; BP diastolic 69–139; PULSE 61–78; RESP 14–16; TEMP 36.2; O2SAT 80–100; BMI 27.1
--- NOTE | 2022-01-27 20:21 | RAD_ITS ---
STUDY: X-RAY - PELVIS REASON FOR EXAM: Male, 66 years old. fall TECHNIQUE: One view of the pelvis was obtained. COMPARISON: None. FINDINGS: There is a non-specific bowel gas pattern. Normal visualized soft tissue structures. Right total hip arthroplasty with superior dislocation. 13 mm radiodensity left groin Normal bilateral iliac wings, sacroiliac joints and visualized sacrum. Normal visualized bilateral superior and inferior pubic rami. Normal pubic symphysis. Normal ischial tuberosities. Normal visualized right femoral head. Normal right acetabulum. Normal right hip joint. Normal visualized left femoral head. Normal left acetabulum. Normal left hip joint. RAD/Pelvis 1 or 2 Views IMPRESSION: Right hip arthroplasty dislocation. No fracture. Radiodensity left inguinal region requires clinical correlation. Electronically Signed: Miguel Moon MD at 21:53 EDT ,
--- NOTE | 2022-01-27 20:25 | EDS_ITS ---
HPI HPI - Fall History of Present Illness Chief Complaint: Fall Informant: patient and spouse/S.O. Occured/Mechanism Occurred: Today Usually ambulates: Without assistance Pain/Injury Pain Location: lower extremity Quality of Pain: Sharp Current Severity: Moderate Maximum Severity: Moderate Associated Symptoms Associated Symptoms: Positive for Inability to ambulate; Negative for Parasthesias, Weakness, Loss of function, Loss of consciousness or Amnesia Narrative Narrative: 66-year-old male history of hypertension and dementia. He had a hip replacement March 1 year ago. He has dislocated it once after his surgery. This evening he was going out to go in the garage he was going under the garage door he stoop slipped fell is complaining of right hip pain. Denies other injuries. No LOC. Prior similar symptoms: Yes Recent Illness/Hospitalization: No [facility] Medical History (Updated 01/27/22 @ 22:[address] Jose Manuel Sommer MD) Allergies Alzheimer disease Arthritis Hypertension Tremor Home Medications acetaminophen 500 mg tablet 1,000 mg PO Q8H PRN Pain (Scale Score 1-10) 04/11/21 [History Last Taken Unknown] aspirin 81 mg tablet,delayed release 81 mg PO DAILY Heart 04/11/21 [History Last Taken Unknown] ferrous sulfate 325 mg (65 mg iron) tablet 325 mg PO DAILY Supplement 04/11/21 [History Last Taken Unknown] potassium chloride 20 mEq tablet,extended release(part/cryst) (Klor-Con M) 20 meq PO DAILYCM 30 days #30 tabs 04/23/21 [Rx Last Taken Unknown] albuterol sulfate 90 mcg/actuation aerosol inhaler 1 inh inhalation Q4H PRN PRN Shortness Of Breath Or Wheezing 06/15/21 [History Last Taken Unknown] dexamethasone 6 mg tablet (Decadron) 6 mg PO DAILY 10 days #10 tabs 06/15/21 [Rx Last Taken Unknown] doxycycline monohydrate 100 mg tablet 100 mg PO BID 06/15/21 [History Last Taken Unknown] fluticasone propionate 50 mcg/actuation nasal spray,suspension 1 spray intranasal DAILY 06/15/21 [History Last Taken Unknown] lisinopril 20 mg-hydrochlorothiazide 12.5 mg tablet 1 tab PO DAILY 06/15/21 [History Last Taken Unknown] loratadine 10 mg tablet 10 mg PO DAILY 06/15/21 [History Last Taken Unknown] prednisone 50 mg tablet 50 mg PO DAILY 06/15/21 [History Last Taken Unknown] Allergy/AdvReac Type Severity Reaction Status Date / Time cefaclor [From Ceclor] AdvReac Nausea Verified 01/27/22 20:18 celecoxib [From Celebrex] AdvReac Upset Verified 01/27/22 20:18 Stomach Family History Mother Cancer Father Alzheimer disease Prostate cancer Sister Lymphoma Surgical History (Updated 01/27/22 @ 22:[address] Jose Manuel Sommer MD) H/O total hip arthroplasty Social History (Updated 01/27/22 @ 21:[address] Lizy Poon MD) household members: spouse Smoking Status: Former smoker alcohol intake: never substance use type: does not use ROS ROS ED ROS Narrative Denies recent illness. Review of Systems ROS Unobtainable: Denies due to encephalopathy Constitutional Constitutional ED: Denies chills Eyes Eyes: Denies blurry vision ENT ENT ED: Denies ear pain Cardiovascular Cardiovascular: Denies chest pain Respiratory/Chest Respiratory/Chest: Denies cough Gastrointestinal Gastrointestinal: Denies abdominal pain Genitourinary Genitourinary ED: Denies dysuria Musculoskeletal Musculoskeletal: Denies arthralgias Integumentary Denies abscess Neurologic Neurologic: Denies headache(s) Psychiatric Psychiatric: Denies anxiety Endocrine Endocrinology: Denies polydipsia Hematologic/Lymphatic Hematologic/Lymphatic: Denies easy bleeding Allergic/Immunologic Allergic/Immunologic ED: Denies mouth swelling EXAM Physical Exam Narrative Exam Narrative: 58-year-old male no acute distress. Vital signs are stable afebrile. H EENT exam unremarkable atraumatic. Nontender. C-spine back nontender. Lungs are clear. Heart regular rhythm. Chest nontender. Abdomen soft nontender. Right hip tender. Decreased range of motion. Shortening and rotation of the right lower leg. Dorsi plantarflexion intact. Left lower extremity unremarkable. Neurologically is awake and alert. Answering questions and following commands. Const Vital Signs: 01/27/22 20:13 01/27/22 20:19 01/27/22 21:56 Temperature 97.2 F L Temperature Source Temporal Pulse Rate 78 71 Pulse Rate [1 (Initial Baseline)] Respiratory Rate 15 16 Respiratory Rate [1 (Initial Baseline)] Respiratory Effort Normal Non-Labored Respiratory Depth Normal Respiratory Pattern Normal Blood Pressure 161/92 H 169/93 H Blood Pressure [1 (Initial Baseline)] Blood Pressure Mean 115 Pulse Ox 99 100 Oxygen Delivery Method Room Air Room Air Nasal Cannula Oxygen Delivery Method [1 (Initial Baseline)] Oxygen Flow Rate (L/min) 6 Oxygen Flow Rate (L/min) [1 (Initial Baseline)] 01/27/22 21:56 Temperature Temperature Source Pulse Rate Pulse Rate [1 (Initial Baseline)] 71 Respiratory Rate Respiratory Rate [1 (Initial Baseline)] 16 Respiratory Effort Respiratory Depth Respiratory Pattern Blood Pressure Blood Pressure [1 (Initial Baseline)] 169/93 H Blood Pressure Mean Pulse Ox Oxygen Delivery Method Oxygen Delivery Method [1 (Initial Baseline)] Nasal Cannula Oxygen Flow Rate (L/min) Oxygen Flow Rate (L/min) [1 (Initial Baseline)] 6 Positive well nourished and well developed; Negative for cachectic, contractures or unkempt General Appearance ED: well developed; Negative for unkempt, cachectic or contractures Nutritional Appearance: Negative for cachectic HEENT Reports normocephalic atraumatic; Negative for trauma Eyes PERRL and EOMs intact bilaterally General Eye ED: Negative for pale conjunctiva or scleral icterus Neck full ROM, no lymphadenopathy and supple Chest Wall inspection of chest normal Resp normal respiratory effort, no retractions and clear to auscultation bilaterally Effort and Inspection: Negative for pain with movement Auscultation: Negative for rales, rhonchi or wheezes Cardio regular rate, regular rhythm, S1 normal heart sound, S2 normal heart sound and no murmurs GI non-tender, non-distended and no masses Inspection: Negative for abdominal distention Auscultation: normoactive bowel sounds Palpation: soft Back/Spine no CVA tenderness General Back: Negative for CVA tenderness Extremity Extremity Narrative: Right hip tenderness and decreased range of motion. Shortening and rotation. Neuro moves all extremities and no focal motor deficits Sensorium / Orientation: alert, oriented to person and oriented to place Motor Exam: strength 5/5 throughout Psych mental status grossly normal Appearance: Negative for unkempt Attitude: No agitated Mood & Affect: Negative for depressed or anxious Skin Lesions: no lesions Trauma: Negative for abrasion MDM MDM MDM Narrative Medical decision making narrative: 66-year-old male status post hip replacement 1 year ago. Fell tonight complaining hip pain. X-rays being obtained. He was brought in by squad and was already given IV morphine by them. Repeat exam at 11:12 PM patient is doing well after conscious sedation. X-rays revealed that the dislocated hip is now in place. He will be watched for half an hour. He was placed in a knee immobilizer after the procedure. I discussed the x-ray results with both he and his and they will follow-up with his orthopedic physician. They know to leave the knee immobilizer in place. Radiography Diagnostic Testing: Clinical Impression(s) from Imaging Studies Pelvis X-Ray 01/27/22 20:21 IMPRESSION: Right hip arthroplasty dislocation. No fracture. Radiodensity left inguinal region requires clinical correlation. Electronically Signed: Miguel Moon MD at 21:53 EDT , Right hip and pelvis x-ray interpreted by myself shows a right posterior hip dislocation. No fracture. Interpreted by myself. Right femur x-ray shows her prosthetic right hip posterior dislocation. No fracture. Interpreted by myself. Post reduction right hip x-ray shows that it was successfully reduced. Prosthetic hip is now in good alignment. Procedures Procedural Sedation Procedural sedation: Consent Signed: Yes Any Problems With Anesthesia: No You/Your family experience fever (hyperthermia) w/anesthesia: No Sedation medication: Propofol Dose: 160 Route: IV Total Moderate Sedation Units: 12 Mallampati Score: Class II ASA Classification: II Comment:: Patient with a right posterior hip dislocation. Discussed with he and his . He had not eaten for over 4 hours. Consciously sedated with propofol. Initially given 80 mg IV and then 2 additional doses of 40 for a total of 160 mg of propofol. He was on the monitor and oxygen the entire time. Using traction and stabilization of the pelvis we will to reduce the right hip. Leg came out the length. He is placed in a right knee immobilizer. X-ray is being obtained. Patient tolerated procedure well. He is starting to wake up. Total time of procedural sedation was around 12 minutes. Other Procedures Procedure(s): Right prosthetic hip dislocation. Reduced. Using procedural sedation. Manually reduced with traction. Discharge Plan Triage Chief Complaint: Fall ED Provider: Jose Manuel Sommer Dx/Rx/DC Orders Clinical Impression: Fall, Dislocation of hip joint prosthesis, S/P closed reduction of dislocated total hip prosthesis Instructions: ED Hip Replace Dislocation Reduc Prescriptions: No Action aspirin 81 mg Tablet,Delayed Release (Dr/Ec) 81 mg PO DAILY acetaminophen 500 mg Tablet 1,000 mg PO Q8H PRN (Reason: Pain (Scale Score 1-10)) ferrous sulfate 325 mg (65 mg iron) Tablet 325 mg PO DAILY potassium chloride [Klor-Con M20] 20 mEq Tablet,Er Particles/Crystals 20 meq PO DAILYCM 30 Days Qty: 30 0RF lisinopril-hydrochlorothiazide 20-12.5 mg tablet 1 tab PO DAILY doxycycline monohydrate 100 mg tablet 100 mg PO BID prednisone 50 mg tablet 50 mg PO DAILY albuterol sulfate 90 mcg/actuation HFA aerosol inhaler 1 inh INHALATION Q4H PRN PRN (Reason: Shortness Of Breath Or Wheezing) fluticasone propionate 50 mcg/actuation spray,suspension 1 spray INTRANASAL DAILY loratadine 10 mg tablet 10 mg PO DAILY dexamethasone [Decadron] 6 mg tablet 6 mg PO DAILY 10 Days Qty: 10 0RF Primary Care Provider: Clifton Doran Referrals: Jose A Foley MD [NON-STAFF] - As soon as possible Clifton Doran PA [Primary Care Provider] - Activity Restrictions/Additional Instructions: Call and follow-up with your orthopedic doctor soon as possible. Continue to wear the knee immobilizer to prevent it from dislocating. Return if having any problems. Disposition Disposition: Home, Self Care
--- NOTE | 2022-01-27 21:30 | RAD_ITS ---
STUDY: X-RAY - RIGHT FEMUR REASON FOR STUDY: Male, 66 years old. Fall. TECHNIQUE: AP and lateral view(s) of the femur. COMPARISON: Pelvis, 01/27/2022 FINDINGS: There is evidence of posterior dislocation of a right total hip arthroplasty. There is no fracture or loosening of the prosthesis from the underlying bone. The remainder of the femoral shaft appears grossly normal. There are mild degenerative changes of the knee. Normal visualized soft tissue structure. RAD/Femur Min 2 Views IMPRESSION: Posterior dislocation of the right artificial hip without fracture or displacement of the components.. Electronically Signed: Johan Tabor DO at 21:48 EDT ,
[2022-01-27] MEDS: Propofol 200 MG/20 ML Vial 40 MG IV BOLUS (22:36)
--- NOTE | 2022-01-27 22:55 | RAD_ITS ---
STUDY: X-RAY - PELVIS AND RIGHT HIP REASON FOR EXAM: Male, 66 years old. Right hip dislocation, postreduction TECHNIQUE: 2 views of the pelvis and hip. COMPARISON: None. FINDINGS: There is a non-specific bowel gas pattern. Normal visualized soft tissue structures. Normal bilateral iliac wings, sacroiliac joints and visualized sacrum. Normal bilateral superior and inferior pubic rami. Normal pubic symphysis. Normal bilateral ischial tuberosities. Right total hip arthroplasty now in anatomic alignment. RAD/Hip Min 2 Views (Portable) IMPRESSION: Successful reduction right total hip arthroplasty. No fracture. Electronically Signed: Miguel Moon MD at 23:19 EDT ,
== END 2022-01-28 00:01 | disposition home or self-care (01) ==
PROVIDERS: Emergency Provider Emergency Medicine; PCP Physician Assistant; Visit Provider Emergency Medicine
DX: T84.020A Dislocation of internal right hip prosthesis, initial encounter (principal); G30.9 Alzheimer's disease, unspecified; F02.80 Dementia in other diseases classified elsewhere, unspecified severity, without behavioral disturbance, psychotic disturbance, mood disturbance, and anxiety; W01.0XXA Fall on same level from slipping, tripping and stumbling without subsequent striking against object, initial encounter; Y92.59 Other trade areas as the place of occurrence of the external cause; I10 Essential (primary) hypertension; M19.90 Unspecified osteoarthritis, unspecified site; Z79.82 Long term (current) use of aspirin; Z79.52 Long term (current) use of systemic steroids; Z79.899 Other long term (current) drug therapy; Z96.641 Presence of right artificial hip joint; Z87.891 Personal history of nicotine dependence
CPT/HCPCS: 27265; 72170; 73502; 73552; 99285

== ENCOUNTER 2022-03-09 06:22 | Emergency (ER) | payer MEDICARE, SELFPAY ==
[2022-03-09] VITALS (9 sets, daily range): BP systolic 119–175; BP diastolic 79–135; PULSE 63–80; RESP 10–20; TEMP 36.4–36.6; O2SAT 83–99; BMI 25.0
--- NOTE | 2022-03-09 06:28 | RAD_ITS ---
STUDY: X-RAY - PELVIS AND RIGHT HIP REASON FOR EXAM: Dislocation of right hip arthroplasty. TECHNIQUE: 2 views of the pelvis and hip. COMPARISON: Radiographs 01/27/2022. FINDINGS: There is a calcification in the in the scrotum as on the prior study. There is also a calcification in right groin as on the prior study. Normal bilateral iliac wings, sacroiliac joints and visualized sacrum. Normal bilateral superior and inferior pubic rami. Normal pubic symphysis. Normal bilateral ischial tuberosities. There is superior posterior dislocation of the right hip arthroplasty. RAD/HIP, UNI W/ Pelvis 2-3 Views IMPRESSION: Dislocation of the right hip arthroplasty. Electronically Signed: Krishna Andrews MD at 7:16 EDT ,
--- NOTE | 2022-03-09 06:30 | ED.VIS.LOWEX ---
HPI History of Present Illness Chief Complaint: Lower Extremity Injury Informant: patient, spouse/S.O. and EMS Occured/Mechanism Comment: Moved his leg to get back into bed after using the bathroom this morning with sudden dislocation of the right hip/pain Onset/Context/Timing Onset: Today (JPTA) Context: Sudden Onset Timing: Continuous Quality of Pain: Aching Location: R hip Current Severity: Severe Maximum Severity: Severe Worsened by: Any movement Relieved by: Nothing Associated Symptoms Associated Symptoms: Positive for Loss of Funtion; Negative for Parasthesia or Weakness Narrative Narrative: Patient has had recurrent hip dislocations status post hip replacement surgery on the right. This is his third dislocation. He fell several days ago landing on the right hip, but was okay and has been able to walk without any difficulty since then. No recent illness or other injury, he simply moved his leg the wrong way while getting back into bed this morning and thinks he dislocated his hip again. Orthopedics [facility] Dr. Foley did is hip arthroplasty. Prior similar symptoms: Yes Recent Illness/Hospitalization: No PFSH PFS Medical History Allergies Alzheimer disease Arthritis Hypertension Tremor Home Medications acetaminophen 500 mg tablet 1,000 mg PO Q8H PRN Pain (Scale Score 1-10) 04/11/21 [History Last Taken Unknown] aspirin 81 mg tablet,delayed release 81 mg PO DAILY Heart 04/11/21 [History Last Taken Unknown] ferrous sulfate 325 mg (65 mg iron) tablet 325 mg PO DAILY Supplement 04/11/21 [History Last Taken Unknown] potassium chloride 20 mEq tablet,extended release(part/cryst) (Klor-Con M) 20 meq PO DAILYCM 30 days #30 tabs 04/23/21 [Rx Last Taken Unknown] albuterol sulfate 90 mcg/actuation aerosol inhaler 1 inh inhalation Q4H PRN PRN Shortness Of Breath Or Wheezing 06/15/21 [History Last Taken Unknown] dexamethasone 6 mg tablet (Decadron) 6 mg PO DAILY 10 days #10 tabs 06/15/21 [Rx Last Taken Unknown] doxycycline monohydrate 100 mg tablet 100 mg PO BID 06/15/21 [History Last Taken Unknown] fluticasone propionate 50 mcg/actuation nasal spray,suspension 1 spray intranasal DAILY 06/15/21 [History Last Taken Unknown] lisinopril 20 mg-hydrochlorothiazide 12.5 mg tablet 1 tab PO DAILY 06/15/21 [History Last Taken Unknown] loratadine 10 mg tablet 10 mg PO DAILY 06/15/21 [History Last Taken Unknown] prednisone 50 mg tablet 50 mg PO DAILY 06/15/21 [History Last Taken Unknown] Allergy/AdvReac Type Severity Reaction Status Date / Time cefaclor [From Ceclor] AdvReac Nausea Verified 03/09/22 07:03 celecoxib [From Celebrex] AdvReac Upset Verified 03/09/22 07:03 Stomach Family History Mother Cancer Father Alzheimer disease Prostate cancer Sister Lymphoma Surgical History H/O total hip arthroplasty Social History household members: spouse Smoking Status: Former smoker alcohol intake: never substance use type: does not use ROS ROS ED Constitutional Constitutional ED: Denies chills or fever(s) Musculoskeletal Musculoskeletal: Reports extremity pain; Denies neck pain Integumentary Denies Abrasions, rash or wounds Neurologic Neurologic: Denies paresthesias or weakness EXAM Physical Exam Const Vital Signs: 03/09/22 06:23 03/09/22 07:04 03/09/22 07:10 Temperature 97.8 F 97.8 F Temperature Source Temporal Pulse Rate 80 68 Pulse Rate [1 (Initial Baseline)] 75 Pulse Rate [2] 66 Pulse Rate [3] 74 Pulse Rate [4] 73 Pulse Rate [5] 64 Pulse Rate [6] 66 Pulse Rate [Procedural sedation] 73 Respiratory Rate 15 17 Respiratory Rate [1 (Initial Baseline)] 18 Respiratory Rate [2] 18 Respiratory Rate [3] 10 L Respiratory Rate [4] 20 H Respiratory Rate [5] 14 Respiratory Rate [6] 17 Respiratory Rate [Procedural sedation] 18 Blood Pressure 175/102 H 148/99 H Blood Pressure [1 (Initial Baseline)] 143/91 H Blood Pressure [2] 143/91 H Blood Pressure [4] 156/135 H Blood Pressure [5] 156/135 H Blood Pressure [6] 131/84 H Blood Pressure [Procedural sedation] 148/99 H Blood Pressure Mean 126 Pulse Ox 98 99 Oxygen Delivery Method Room Air Room Air Oxygen Delivery Method [1 (Initial Baseline)] Room Air Oxygen Delivery Method [2] Room Air Oxygen Delivery Method [3] Room Air Oxygen Delivery Method [4] Nasal Cannula Oxygen Delivery Method [5] Non-Rebreather Oxygen Delivery Method [6] Non-Rebreather Oxygen Delivery Method [Procedural sedation] Room Air Oxygen Flow Rate (L/min) Oxygen Flow Rate (L/min) [4] 6 Oxygen Flow Rate (L/min) [5] 15 Oxygen Flow Rate (L/min) [6] 15 03/09/22 07:25 03/09/22 07:30 03/09/22 07:35 Temperature Temperature Source Pulse Rate Pulse Rate [1 (Initial Baseline)] Pulse Rate [2] Pulse Rate [3] Pulse Rate [4] Pulse Rate [5] Pulse Rate [6] Pulse Rate [Procedural sedation] Respiratory Rate Respiratory Rate [1 (Initial Baseline)] Respiratory Rate [2] Respiratory Rate [3] Respiratory Rate [4] Respiratory Rate [5] Respiratory Rate [6] Respiratory Rate [Procedural sedation] Blood Pressure Blood Pressure [1 (Initial Baseline)] Blood Pressure [2] Blood Pressure [4] Blood Pressure [5] Blood Pressure [6] Blood Pressure [Procedural sedation] Blood Pressure Mean Pulse Ox Oxygen Delivery Method Non-Rebreather Room Air Room Air Oxygen Delivery Method [1 (Initial Baseline)] Oxygen Delivery Method [2] Oxygen Delivery Method [3] Oxygen Delivery Method [4] Oxygen Delivery Method [5] Oxygen Delivery Method [6] Oxygen Delivery Method [Procedural sedation] Oxygen Flow Rate (L/min) 15 Oxygen Flow Rate (L/min) [4] Oxygen Flow Rate (L/min) [5] Oxygen Flow Rate (L/min) [6] 03/09/22 07:40 03/09/22 07:57 Temperature Temperature Source Pulse Rate 63 Pulse Rate [1 (Initial Baseline)] Pulse Rate [2] Pulse Rate [3] Pulse Rate [4] Pulse Rate [5] Pulse Rate [6] Pulse Rate [Procedural sedation] Respiratory Rate 16 Respiratory Rate [1 (Initial Baseline)] Respiratory Rate [2] Respiratory Rate [3] Respiratory Rate [4] Respiratory Rate [5] Respiratory Rate [6] Respiratory Rate [Procedural sedation] Blood Pressure 142/90 H Blood Pressure [1 (Initial Baseline)] Blood Pressure [2] Blood Pressure [4] Blood Pressure [5] Blood Pressure [6] Blood Pressure [Procedural sedation] Blood Pressure Mean 107 Pulse Ox 95 Oxygen Delivery Method Room Air Room Air Oxygen Delivery Method [1 (Initial Baseline)] Oxygen Delivery Method [2] Oxygen Delivery Method [3] Oxygen Delivery Method [4] Oxygen Delivery Method [5] Oxygen Delivery Method [6] Oxygen Delivery Method [Procedural sedation] Oxygen Flow Rate (L/min) Oxygen Flow Rate (L/min) [4] Oxygen Flow Rate (L/min) [5] Oxygen Flow Rate (L/min) [6] Positive well nourished and well developed General Appearance ED: well developed and NAD Neck full ROM and supple Back/Spine normal ROM and normal to inspection Extremity Extremity Narrative: Right lower extremity shortened, internal rotation and abduction, patient not able to move at the hip. Very limited range of motion of the other joints due to pain in the hip and the position of his right lower extremity. Neurovascularly intact distally with 2+ dorsalis pedis pulse, equal sensation. Neuro oriented x3, no focal motor deficits and no sensory deficits noted Sensorium / Orientation: alert Psych mental status grossly normal and thought process normal Skin no wounds Rashes: no rashes MDM MDM MDM Narrative Medical decision making narrative: Three-view x-ray series of the right hip and pelvis on my interpretation shows dislocation posteriorly and no fracture. See the procedure note, hip was reduced without significant complication. To be taken home by his and follow-up with orthopedics. Radiography Diagnostic Testing: Clinical Impression(s) from Imaging Studies Hip/Pelvis X-Ray 03/09/22 06:28 IMPRESSION: Dislocation of the right hip arthroplasty. Electronically Signed: Krishna Andrews MD at 7:16 EDT , Procedures Procedural Sedation 1 (Initial Baseline): Consent Signed: Yes Any Problems With Anesthesia: No You/Your family experience fever (hyperthermia) w/anesthesia: No Sedation medication: Propofol Dose: 160 Route: IV Total Moderate Sedation Units: 24 Mallampati Score: Class II ASA Classification: I Comment:: Fentanyl was given for pain prior to propofol for sedation. 160 mg total propofol was given in 4 separate aliquots, due to sedation initially being inadequate to perform reduction. This resulted in transient hypoxemia down to 88%, which was for about 10-20 seconds. Otherwise patient recovered uneventfully. Other Procedures Procedure(s): Closed reduction right hip: After adequate sedation with propofol, I performed reduction using the Captain Jose technique, having an physician assistant psychiatry helping to hold down the patient's pelvis. Palpable clunk was felt, and afterwards the deformity was completely reduced with a 2+/4 dorsalis pedis pulse. Knee immobilizer was placed. 2 view postreduction films confirm reduction and no fracture on my interpretation. After patient awakened he was reevaluated and is neurovascularly intact distally. Discharge Plan Triage Chief Complaint: Lower Extremity Injury ED Provider: Jose A Richardson Dx/Rx/DC Orders Clinical Impression: Hip dislocation, right, Recurrent dislocation, right hip Instructions: ED Knee Immobilizer, ED Hip Replace Dislocation Reduc Prescriptions: No Action aspirin 81 mg Tablet,Delayed Release (Dr/Ec) 81 mg PO DAILY acetaminophen 500 mg Tablet 1,000 mg PO Q8H PRN (Reason: Pain (Scale Score 1-10)) ferrous sulfate 325 mg (65 mg iron) Tablet 325 mg PO DAILY potassium chloride [Klor-Con M20] 20 mEq Tablet,Er Particles/Crystals 20 meq PO DAILYCM 30 Days Qty: 30 0RF lisinopril-hydrochlorothiazide 20-12.5 mg tablet 1 tab PO DAILY doxycycline monohydrate 100 mg tablet 100 mg PO BID prednisone 50 mg tablet 50 mg PO DAILY albuterol sulfate 90 mcg/actuation HFA aerosol inhaler 1 inh INHALATION Q4H PRN PRN (Reason: Shortness Of Breath Or Wheezing) fluticasone propionate 50 mcg/actuation spray,suspension 1 spray INTRANASAL DAILY loratadine 10 mg tablet 10 mg PO DAILY dexamethasone [Decadron] 6 mg tablet 6 mg PO DAILY 10 Days Qty: 10 0RF Primary Care Provider: Clifton Doran Referrals: Jose A Foley MD [Non-Staff] - As soon as possible Clifton Doran PA [Primary Care Provider] - Disposition Disposition: Home, Self Care
[2022-03-09] MEDS: fentaNYL 100 MCG/2 ML Ampul 50 MCG IV (06:39)
[2022-03-09] MEDS: 0.9% Normal Saline 1,000 ML 999 ML IV (06:42)
[2022-03-09] MEDS: Propofol 200 MG/20 ML Vial IV BOLUS (07:14)
--- NOTE | 2022-03-09 07:24 | RAD_ITS ---
STUDY: X-RAY - PELVIS AND RIGHT HIP REASON FOR EXAM: Post reduction of right hip arthroplasty. TECHNIQUE: 2 views of the pelvis and hip. COMPARISON: Prereduction radiographs obtained earlier the same day. FINDINGS: There is reduction of the right hip arthroplasty. There is no demonstrated fracture. There is a small ossification at the lateral aspect of the right ilium as on prior studies. RAD/Hip Min 2 Views (Portable) IMPRESSION: Reduction of right hip arthroplasty. Electronically Signed: Krishna Andrews MD at 8:06 EDT ,
== END 2022-03-09 08:21 | disposition home or self-care (01) ==
PROVIDERS: Emergency Provider Emergency Medicine; PCP Physician Assistant; Visit Provider Emergency Medicine
DX: M24.451 Recurrent dislocation, right hip (principal); G30.9 Alzheimer's disease, unspecified; F02.80 Dementia in other diseases classified elsewhere, unspecified severity, without behavioral disturbance, psychotic disturbance, mood disturbance, and anxiety; R09.02 Hypoxemia; I10 Essential (primary) hypertension; M19.90 Unspecified osteoarthritis, unspecified site; Z79.82 Long term (current) use of aspirin; Z79.52 Long term (current) use of systemic steroids; Z79.899 Other long term (current) drug therapy; Z96.641 Presence of right artificial hip joint; Z87.891 Personal history of nicotine dependence
CPT/HCPCS: 27256; 73502; 96360; 96361; 99152; 99285; J7030; A4216

== ENCOUNTER 2022-05-05 22:52 | Emergency (ER) | payer MEDICARE, SELFPAY ==
[2022-05-05 22:53] VITALS: BP 121/79; PULSE 120; RESP 16; TEMP 37.4; O2SAT 93; BMI 25.7
--- NOTE | 2022-05-05 23:16 | RAD_ITS ---
STUDY: X-RAY CHEST REASON FOR EXAM: Male, 66 years old. Cough TECHNIQUE: Portable, upright, AP chest radiograph COMPARISON: 06/15/2021 FINDINGS: The lungs are clear and expanded. There is no demonstrated pleural abnormality. Normal size heart. Normal mediastinum and calli. Normal visualized pulmonary arteries. Normal visualized aortic arch and descending thoracic aorta. There is no demonstrated abnormality of the visualized soft tissue structures of the upper abdomen. RAD/Chest 1 View (Portable) IMPRESSION: No acute abnormal cardiopulmonary finding. Electronically Signed: Misael York MD at 0:05 EDT ,
[2022-05-05] MEDS: Ibuprofen 600 MG Tablet PO (23:30)
[2022-05-05] MEDS: MethylPREDNISolone 125 MG/2 ML Vial IV (23:30)
[2022-05-05] MEDS: 0.9% Normal Saline 1,000 ML 999 ML IV (23:32)
[2022-05-05 23:39] LABS: Absolute Lymphocyte Count 0.96 X10^3/uL (0.83-4.51); Absolute Neutrophil Count 8.9 X10^3/uL (2.0-7.7); Basophil# 0.03 X10^3/uL; Basophil% 0.3 % (0-1); Eosinophil# 0.01 X10^3/uL; Eosinophils% 0.1 % (0-5); Hemoglobin 15.2 g/dL (13.0-16.5); Lymphocyte # 0.96 X10^3/ul (0.83-4.51); Lymphocyte % 8.6 % (19-41); Mean Corpuscular Hgb 29.9 pg (27.0-32.0); Mean Corpuscular Volume 90.6 fL (80-94); Mean Platelet Vol. 9.8 fl (6.2-12.0); Monocyte# 1.13 X10^3/uL; Monocyte% 10.2 % (0-10); NRBC Flagged by Analyzer 0 % (0-5); Neutrophil # 8.94 X10^3/uL (2.7-7.7); Neutrophil % 80.3 % (47-70); Platelet Count 439 K/mm3 (150-450); RBC Distribution Width CV 13.9 % (11.6-14.6); RBC Distribution Width SD 46.7 fl (35.1-43.9); Red Blood Count 5.08 M/mm3 (4.6-6.2); White Blood Count 11.1 K/mm3 (4.4-11.0)
[2022-05-05 23:56] VITALS: BP 139/86; PULSE 95; RESP 18; O2SAT 88
[2022-05-05 23:56] LABS: Anion Gap 7 (5-15); BUN 26 mg/dL (7-18); BUN/Creat Ratio 14.4 RATIO (10-20); Calcium,Total 9.1 mg/dL (8.5-10.1); Chloride 106 mmol/L (98-107); EST Glomerular Filtration Rate 40 mL/min (>60); Est Glom Filt Rate - Afr Amer 48 mL/min (>60); Estimated Creatinine Clearance 45.67 ml/min; Glucose 134 mg/dL (74-106); Magnesium 2.4 mg/dL (1.6-2.6); Potassium 3.9 mmol/L (3.5-5.1); Sodium Level 138 mmol/L (136-145)
[2022-05-06] VITALS (7 sets, daily range): BP systolic 125–147; BP diastolic 85–98; PULSE 74–102; RESP 13–24; TEMP 36.8; O2SAT 87–92
[2022-05-06] MEDS: Ipratropium/Albuterol Sulfate 3 ML AMPUL.NEB INHALATION (02:09)
--- NOTE | 2022-05-06 03:14 | EDS_ITS ---
HPI History of Present Illness Chief Complaint: Fever Narrative Narrative: Patient is a 66-year-old male with history of mild Alzheimer's dementia as well as obstructive sleep apnea. 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 She states she tested negative for COVID but that the patient today developed a fever and cough and she put a home pulse ox on his finger. She states when she did this it was reading low in the 70s and this concerned her and therefore she brings him in for evaluation. Reportedly patient does not have a history of lung disorder or need for supplemental oxygen [facility] Medical History Allergies Alzheimer disease Arthritis Hypertension Tremor Home Medications acetaminophen 500 mg tablet 1,000 mg PO Q8H PRN Pain (Scale Score 1-10) 04/11/21 [History Last Taken Unknown] aspirin 81 mg tablet,delayed release 81 mg PO DAILY Heart 04/11/21 [History Last Taken Unknown] ferrous sulfate 325 mg (65 mg iron) tablet 325 mg PO DAILY Supplement 04/11/21 [History Last Taken Unknown] potassium chloride 20 mEq tablet,extended release(part/cryst) (Klor-Con M) 20 meq PO DAILYCM 30 days #30 tabs 04/23/21 [Rx Last Taken Unknown] albuterol sulfate 90 mcg/actuation aerosol inhaler 1 inh inhalation Q4H PRN PRN Shortness Of Breath Or Wheezing 06/15/21 [History Last Taken Unknown] dexamethasone 6 mg tablet (Decadron) 6 mg PO DAILY 10 days #10 tabs 06/15/21 [Rx Last Taken Unknown] doxycycline monohydrate 100 mg tablet 100 mg PO BID 06/15/21 [History Last Taken Unknown] fluticasone propionate 50 mcg/actuation nasal spray,suspension 1 spray intranasal DAILY 06/15/21 [History Last Taken Unknown] lisinopril 20 mg-hydrochlorothiazide 12.5 mg tablet 1 tab PO DAILY 06/15/21 [History Last Taken Unknown] loratadine 10 mg tablet 10 mg PO DAILY 06/15/21 [History Last Taken Unknown] prednisone 50 mg tablet 50 mg PO DAILY 06/15/21 [History Last Taken Unknown] Allergy/AdvReac Type Severity Reaction Status Date / Time cefaclor [From Ceclor] AdvReac Nausea Verified 05/05/22 22:56 celecoxib [From Celebrex] AdvReac Upset Verified 05/05/22 22:56 Stomach Family History Mother Cancer Father Alzheimer disease Prostate cancer Sister Lymphoma Surgical History H/O total hip arthroplasty Social History household members: spouse Smoking Status: Former smoker alcohol intake: never substance use type: does not use ROS ROS ED ROS Narrative Please note review of systems may be unreliable secondary to patient's history of dementia Constitutional Constitutional ED: Reports chills and fever(s) ENT ENT ED: Denies sore throat Cardiovascular Cardiovascular: Denies chest pain Respiratory/Chest Respiratory/Chest: Reports cough; Denies dyspnea Gastrointestinal Gastrointestinal: Denies abdominal pain, diarrhea, nausea or vomiting Genitourinary Genitourinary ED: Denies dysuria Musculoskeletal Musculoskeletal: Denies myalgias Integumentary Denies rash Neurologic Neurologic: Denies headache(s) Hematologic/Lymphatic Hematologic/Lymphatic: Denies easy bleeding or easy bruising EXAM Physical Exam Const Vital Signs: 05/05/22 22:53 05/05/22 23:56 05/06/22 01:00 Temperature 99.3 F H Temperature Source Oral Pulse Rate 120 H 95 78 Respiratory Rate 16 18 13 Respiratory Effort Respiratory Pattern Blood Pressure 121/79 H 139/86 H 127/86 H Blood Pressure Mean 93 103 99 Pulse Ox 93 88 87 Oxygen Delivery Method Room Air Room Air Room Air 05/06/22 01:08 05/06/22 01:24 05/06/22 02:09 Temperature 98.2 F Temperature Source Oral Pulse Rate 78 82 Respiratory Rate 17 24 H Respiratory Effort Non-Labored Respiratory Pattern Normal Tachypnea Blood Pressure 125/85 H Blood Pressure Mean 98 Pulse Ox 91 Oxygen Delivery Method Room Air 05/06/22 02:33 05/06/22 01:56 Temperature 98.2 F Temperature Source Oral Pulse Rate 83 74 Respiratory Rate 17 16 Respiratory Effort Respiratory Pattern Blood Pressure 147/98 H 147/98 H Blood Pressure Mean 114 114 Pulse Ox 92 90 Oxygen Delivery Method Room Air Room Air Positive well nourished and well developed General Appearance ED: well developed HEENT HEENT Narrative: Cobblestoning noted in the posterior pharynx consistent with sinus drainage. No tongue or lip swelling no oral lesions no airway edema or compromise. Mucous membranes are slightly dry and tacky Eyes PERRL and EOMs intact bilaterally Neck supple and no JVD Neck Narrative: Positive anterior cervical lymphadenopathy noted Resp Resp Narrative: Breath sounds are diminished throughout with faint expiratory wheeze in the bilateral bases and mild accessory muscle use noted. Cardio regular rhythm Rate: tachycardic GI normal to inspection, nondistended, normoactive bowel sounds, non-tender and non-distended GI Narrative: No voluntary guarding or rigidity no pulsatile mass Auscultation: normoactive bowel sounds Palpation: soft Extremity normal to inspection Extremity Narrative: No asymmetric edema no pitting edema negative Homans' sign bilaterally Neuro CN's II-XII intact bilaterally Neuro Narrative: Patient is at his baseline mental status without focal neurologic finding Sensorium / Orientation: alert Psych Psych Narrative: Patient has a flat affect Skin no rashes or lesions noted MDM MDM MDM Narrative Medical decision making narrative: Patient presented to the ER low-grade temperature and tachycardic. Despite this his pulse ox was 92 to 94% on room air. As indicated the home pulse ox was in the 70s I felt that it was most likely an abnormal reading from a bad waveform as his value now is normal and his work of breathing minimal. However with the fever and reported hypoxia I did elect to perform basic laboratory studies and chest x-ray. Chest x-ray revealed no acute lung pathology labs showed elevation to his creatinine which is near his baseline per chart review and his COVID and influenza swabs are negative. He was hydrated given further antipyretic medication as well as Solu-Medrol and breathing treatments and on r eevaluation lungs sounded better work of breathing normalized. He was ambulated and his pulse ox stayed between 90 to 94%. Therefore at this time as he is not requiring supplemental oxygen or showing signs of respiratory distress he is otherwise safe for discharge Lab Data Attestation: I reviewed the patient's lab results. Labs: Laboratory Results - last 24 hr 05/05/22 05/05/22 23:20 23:20 WBC 11.1 H RBC 5.08 Hgb 15.2 Hct 46.0 MCV 90.6 MCH 29.9 MCHC 33.0 RDW Std Deviation 46.7 H RDW Coeff of Magda 13.9 Plt Count 439 MPV 9.8 Immature Gran % (Auto) 0.500 Neut % (Auto) 80.3 H Lymph % (Auto) 8.6 L Crisp % (Auto) 10.2 H Eos % (Auto) 0.1 Baso % (Auto) 0.3 Absolute Neuts (auto) 8.9 H Absolute Lymphs (auto) 0.96 Nucleated RBC % 0 Sodium 138 Potassium 3.9 Chloride 106 Carbon Dioxide 25.0 Anion Gap 7 BUN 26 H Creatinine 1.80 H Estim Creat Clear Calc 45.67 Est GFR (MDRD) Af Amer 48 L Est GFR (MDRD) Non-Af 40 L BUN/Creatinine Ratio 14.4 Glucose 134 H Calcium 9.1 Magnesium 2.4 Radiography Diagnostic Testing: Clinical Impression(s) from Imaging Studies Chest X-Ray 05/05/22 23:16 IMPRESSION: No acute abnormal cardiopulmonary finding. Electronically Signed: Misael York MD at 0:05 EDT , Chest x-ray as interpreted by the emergency medicine physician reveals no acute infiltrate pneumothorax or pleural effusion Discharge Plan Triage Chief Complaint: Fever ED Provider: Conrado Gonzales Dx/Rx/DC Orders Clinical Impression: Viral upper respiratory tract infection, Pyrexia, Mild cognitive impairment, Obstructive sleep apnea Instructions: ED Fever Control (Adult), ED URI, Viral, No Abx (Adult) Prescriptions: No Action aspirin 81 mg Tablet,Delayed Release (Dr/Ec) 81 mg PO DAILY acetaminophen 500 mg Tablet 1,000 mg PO Q8H PRN (Reason: Pain (Scale Score 1-10)) ferrous sulfate 325 mg (65 mg iron) Tablet 325 mg PO DAILY potassium chloride [Klor-Con M20] 20 mEq Tablet,Er Particles/Crystals 20 meq PO DAILYCM 30 Days Qty: 30 0RF lisinopril-hydrochlorothiazide 20-12.5 mg tablet 1 tab PO DAILY doxycycline monohydrate 100 mg tablet 100 mg PO BID prednisone 50 mg tablet 50 mg PO DAILY albuterol sulfate 90 mcg/actuation HFA aerosol inhaler 1 inh INHALATION Q4H PRN PRN (Reason: Shortness Of Breath Or Wheezing) fluticasone propionate 50 mcg/actuation spray,suspension 1 spray INTRANASAL DAILY loratadine 10 mg tablet 10 mg PO DAILY dexamethasone [Decadron] 6 mg tablet 6 mg PO DAILY 10 Days Qty: 10 0RF Primary Care Provider: Clifton Doran Referrals: Clifton Doran, PA [Primary Care Provider] - Disposition Disposition: Home, Self Care
== END 2022-05-06 03:46 | disposition home or self-care (01) ==
PROVIDERS: Emergency Provider Emergency Medicine; PCP Physician Assistant; Visit Provider Emergency Medicine
DX: J06.9 Acute upper respiratory infection, unspecified (principal); G30.9 Alzheimer's disease, unspecified; F02.80 Dementia in other diseases classified elsewhere, unspecified severity, without behavioral disturbance, psychotic disturbance, mood disturbance, and anxiety; Z20.822 Contact with and (suspected) exposure to COVID-19; G47.33 Obstructive sleep apnea (adult) (pediatric); Z79.82 Long term (current) use of aspirin; Z79.899 Other long term (current) drug therapy; Z87.891 Personal history of nicotine dependence
CPT/HCPCS: 71045; 80048; 83735; 85025; 87428; 94640; 96361; 96374; 99284; J7030; A4216

== ENCOUNTER 2022-10-26 18:05 | Inpatient (IN) | payer MEDICARE, SELFPAY ==
[2022-10-26 18:05] VITALS: BP 140/93; PULSE 126; RESP 18; TEMP 39.3; O2SAT 94
[2022-10-26 19:27] VITALS: BP 138/82; PULSE 114; RESP 18; TEMP 37.3; O2SAT 92
[2022-10-26 19:29] VITALS: BMI 26.3
[2022-10-26 19:54] LABS: Bacteria 0 SEEN /hpf (None Seen); Mucous, Urine 0 SEEN /hpf (<or=2+); Squamous Epithelial Cells - UA 0 SEEN /hpf (0-5); White Blood Cells 0 SEEN /hpf (0-5)
[2022-10-26 19:56] LABS: Color, Urine Yellow (Yellow); Glucose, Dipstick Normal (Normal); Ketone-Dipstick 5 mg/dl (Negative); Leukocyte Esterase-Dipstick Negative /ul (Negative); Nitrite-Dipstick Negative (Negative); Occult Blood-Urine 50 /ul (Negative); Protein-Dipstick 100 mg/dl (Negative); Urine Bilirubin Dipstick Negative (Negative); Urine Clarity Sl. Cloudy (Clear); Urine Urobilinogen 8 mg/dl (Normal)
[2022-10-26 20:03] LABS: Red Blood Cells-Urine 0-5 SEEN /hpf (0-5)
[2022-10-26 20:03] LABS: Absolute Lymphocyte Count 1.12 X10^3/uL (0.83-4.51); Absolute Neutrophil Count 9.7 X10^3/uL (2.0-7.7); Basophil# 0.04 X10^3/uL; Basophil% 0.3 % (0-1); Eosinophil# 0.01 X10^3/uL; Eosinophils% 0.1 % (0-5); Hematocrit 44.9 % (40-54); Hemoglobin 14.8 g/dL (13.0-16.5); Lymphocyte # 1.12 X10^3/ul (0.83-4.51); Lymphocyte % 9.5 % (19-41); Mean Corpuscular Volume 91.1 fL (80-94); Mean Platelet Vol. 9.7 fl (6.2-12.0); Monocyte# 0.79 X10^3/uL; Monocyte% 6.7 % (0-10); NRBC Flagged by Analyzer 0 % (0-5); Neutrophil # 9.72 X10^3/uL (2.7-7.7); Neutrophil % 82.6 % (47-70); Platelet Count 491 K/mm3 (150-450); Red Blood Count 4.93 M/mm3 (4.6-6.2); White Blood Count 11.8 K/mm3 (4.4-11.0)
[2022-10-26] MEDS: Acetaminophen 500 MG Tablet 1000 MG PO (20:03)
[2022-10-26] MEDS: 0.9% Normal Saline 1,000 ML 999 ML IV (20:04)
--- NOTE | 2022-10-26 20:05 | RAD_ITS ---
INDICATION: cough EXAMINATION/TECHNIQUE: X-RAY - XR Chest 1 View COMPARISON: May 05, 2022. FINDINGS: LINES/DEVICES: None. LUNGS: No consolidation, edema or effusion. No pneumothorax. MEDIASTINUM AND CARDIOVASCULAR STRUCTURES: Cardiac silhouette not enlarged. Central airways and mediastinal contour are unremarkable. BONES AND SOFT TISSUES: Scoliosis and degenerative vertebral changes. RAD/Chest 1 View (Portable) IMPRESSION: No radiographic evidence of acute cardiopulmonary disease. Electronically Signed: Aditya Edwards DO at 21:15 EDT ,
[2022-10-26 20:06] VITALS: BP 135/80; PULSE 107; RESP 18; O2SAT 91
[2022-10-26 20:07] VITALS: O2SAT 93
[2022-10-26 20:08] VITALS: O2SAT 91
[2022-10-26 20:19] LABS: ALB/GLOB Ratio 0.7 RATIO (0.9-2.4); AST(SGOT) 19 U/L (15-37); Alanine Aminotransfer ALT/SGPT 19 U/L (16-61); Alkaline Phosphatase 70 U/L (45-117); Anion Gap 2 (5-15); BUN 23 mg/dL (7-18); BUN/Creat Ratio 14.5 RATIO (10-20); Calcium,Total 8.9 mg/dL (8.5-10.1); Chloride 111 mmol/L (98-107); Creatinine, Serum 1.59 mg/dL (0.70-1.30); EST Glomerular Filtration Rate 46 mL/min (>60); Est Glom Filt Rate - Afr Amer 56 mL/min (>60); Estimated Creatinine Clearance 50.25 ml/min; Globulin 4.3 g/dL (2.2-4.2); Glucose 167 mg/dL (74-106); Potassium 3.6 mmol/L (3.5-5.1); Protein, Total 7.3 g/dL (6.4-8.2); Sodium Level 139 mmol/L (136-145)
[2022-10-26 20:25] LABS: International Normalized Ratio 1.2; Partial Thromboplast Time 29.6 Seconds (24.1-36.2); Prothrombin Time (Protime)PT. 14.6 SECONDS (11.7-14.9)
[2022-10-26 20:30] LABS: Lactic Acid 0.8 mmol/L (0.4-1.9)
--- NOTE | 2022-10-26 21:52 | EDS_ITS ---
HPI History of Present Illness Chief Complaint: Fever Narrative Narrative: 66-year-old male with dementia presenting with confusion which is worse than usual. Patient was found to have a fever today that was as high as 102 ?F. Patient had been coughing a lot as well. Patient's states that she a cold this last week but never had a fever. She states that he is acting abnormally but he does not normally complain. She also states that she went to the urgent care and he was hypoxic there. He has been very tachycardic. She did not treat his fever with Tylenol or ibuprofen. PFSH PFS Medical History (Updated 10/26/22 @ 22:[address] Sydney Donis DO) Allergies Alzheimer disease Arthritis History of basal cell cancer Hypertension Obstructive sleep apnea Tremor Vertigo Home Medications donepezil 10 mg tablet 10 mg PO DAILY 10/26/22 [History Last Taken Unknown] Allergy/AdvReac Type Severity Reaction Status Date / Time cefaclor [From Ceclor] AdvReac Nausea Verified 10/26/22 18:07 celecoxib [From Celebrex] AdvReac Upset Verified 10/26/22 18:07 Stomach Family History Mother Cancer Father Alzheimer disease Prostate cancer Sister Lymphoma Surgical History (Updated 10/26/22 @ 22:[address] Sydney Donis DO) H/O total hip arthroplasty Social History household members: spouse Smoking Status: Former smoker alcohol intake: never substance use type: does not use ROS ROS ED Review of Systems ROS Unobtainable: due to mental status EXAM Physical Exam Const Vital Signs: 10/26/22 18:05 10/26/22 19:27 10/26/22 19:29 Temperature 102.7 F H 99.2 F H Temperature Source Oral Oral Pulse Rate 126 H 114 H Respiratory Rate 18 18 Respiratory Effort Normal Non-Labored Respiratory Pattern Normal Blood Pressure 140/93 H 138/82 H Blood Pressure Mean 108 100 Pulse Ox 94 92 Oxygen Delivery Method Room Air Room Air Oxygen Flow Rate (L/min) 10/26/22 20:06 10/26/22 20:07 10/26/22 22:30 Temperature 98.9 F Temperature Source Temporal Pulse Rate 107 H 76 Respiratory Rate 18 15 Respiratory Effort Respiratory Pattern Blood Pressure 135/80 H 125/85 H Blood Pressure Mean 98 98 Pulse Ox 91 93 94 Oxygen Delivery Method Room Air Room Air Oxygen Flow Rate (L/min) 2 Positive well nourished General Appearance ED: NAD; Negative for pallor HEENT Reports moist mucous membranes Negative for trauma Eyes PERRL and EOMs intact bilaterally Neck no lymphadenopathy Chest Wall inspection of chest normal Resp normal respiratory effort and clear to auscultation bilaterally Auscultation: Negative for rales, rhonchi or wheezes Cardio regular rhythm Rate: tachycardic GI normal to inspection, nondistended, normoactive bowel sounds Neuro CN's II-XII intact bilaterally Motor Exam: general weakness Psych mental status grossly normal Skin no rashes or lesions noted General Skin Exam: Negative for jaundice or pallor MDM MDM MDM Narrative Medical decision making narrative: Patient presenting with fever, tachycardia, altered mental status. His baseline is dementia but his states he is more confused. Is concerned that with the fevers go to be difficult to manage at home. Because he has tachycardia and slight hypoxia sepsis work-up was pursued. Patient's temperature is 102.70 is given a gram of Tylenol. He is also given a liter normal saline. EKG shows sinus tachycardia at 100 bpm without sign of ischemic changes arrhythmia. Chest x-ray my interpretation shows no acute cardiopulmonary process. Radiologist are present and agrees. Patient ambulated with pulse ox and dropped to 89%. CBC shows leukocytosis of 11.8. Hemoglobin hematocrit are stable. Platelets are normal. PT/INR within normal limits. That is actually improved from previous. Glucose 167 without anion gap. Electrolytes unremarkable. LFTs are unremarkable. Reevaluation the patient's tachycardia is improved. His fever is broken. He still very confused. Lactic acid returned normal at 0.8. Given that the patient is hypoxic with altered mental status. His is concerned he will need to be admitted. Discussed this with the hospitalist for admission. Impression: 1. Febrile illness 2. Encephalopathy 3. Tachycardia resolved Lab Data Labs: Laboratory Results - last 24 hr 10/26/22 10/26/22 10/26/22 18:35 19:50 19:50 WBC 11.8 H RBC 4.93 Hgb 14.8 Hct 44.9 MCV 91.1 MCH 30.0 MCHC 33.0 RDW Std Deviation 47.0 H RDW Coeff of Magda 14.0 Plt Count 491 H MPV 9.7 Immature Gran % (Auto) 0.800 Neut % (Auto) 82.6 H Lymph % (Auto) 9.5 L [place] % (Auto) 6.7 Eos % (Auto) 0.1 Baso % (Auto) 0.3 Absolute Neuts (auto) 9.7 H Absolute Lymphs (auto) 1.12 Nucleated RBC % 0 PT 14.6 INR 1.2 APTT 29.6 Sodium Potassium Chloride Carbon Dioxide Anion Gap BUN Creatinine Estim Creat Clear Calc Est GFR (MDRD) Af Amer Est GFR (MDRD) Non-Af BUN/Creatinine Ratio Glucose Lactic Acid Calcium Total Bilirubin AST ALT Alkaline Phosphatase Total Protein Albumin Globulin Albumin/Globulin Ratio Urine Color Yellow Urine Clarity Sl. Cloudy Urine pH 6.0 Ur Specific [place] 1.010 Urine Protein 100 H Urine Glucose (UA) Normal Urine Ketones 5 H Urine Occult Blood 50 H Urine Nitrite Negative Urine Bilirubin Negative Urine Urobilinogen 8 H Ur Leukocyte Esterase Negative Urine RBC 0-5 SEEN Urine WBC 0 SEEN Ur Squamous Epith Cells 0 SEEN Urine Bacteria 0 SEEN Urine Mucus 0 SEEN 10/26/22 10/26/22 19:50 19:50 WBC RBC Hgb Hct MCV MCH MCHC RDW Std Deviation RDW Coeff of Magda Plt Count MPV Immature Gran % (Auto) Neut % (Auto) Lymph % (Auto) [place] % (Auto) Eos % (Auto) Baso % (Auto) Absolute Neuts (auto) Absolute Lymphs (auto) Nucleated RBC % PT INR APTT Sodium 139 Potassium 3.6 Chloride 111 H Carbon Dioxide 26.0 Anion Gap 2 L BUN 23 H Creatinine 1.59 H Estim Creat Clear Calc 50.25 Est GFR (MDRD) Af Amer 56 L Est GFR (MDRD) Non-Af 46 L BUN/Creatinine Ratio 14.5 Glucose 167 H Lactic Acid 0.8 Calcium 8.9 Total Bilirubin 0.70 AST 19 ALT 19 Alkaline Phosphatase 70 Total Protein 7.3 Albumin 3.0 L Globulin 4.3 H Albumin/Globulin Ratio 0.7 L Urine Color Urine Clarity Urine pH Ur Specific [place] Urine Protein Urine Glucose (UA) Urine Ketones Urine Occult Blood Urine Nitrite Urine Bilirubin Urine Urobilinogen Ur Leukocyte Esterase Urine RBC Urine WBC Ur Squamous Epith Cells Urine Bacteria Urine Mucus Radiography Diagnostic Testing: Clinical Impression(s) from Imaging Studies Chest X-Ray 10/26/22 20:05 IMPRESSION: No radiographic evidence of acute cardiopulmonary disease. Electronically Signed: Aditya Edwards DO at 21:15 EDT Reading Location ID and State: [facility] / [place] Tel [phone], Service support , Discharge Plan Triage Chief Complaint: Fever ED Provider: Ubaldo Kelly Dx/Rx/DC Orders Primary Care Provider: Clifton Doran
[2022-10-26 22:30] VITALS: BP 125/85; PULSE 76; RESP 15; TEMP 37.2; O2SAT 94
--- NOTE | 2022-10-26 22:39 | HP.PCM.HOS_ITS ---
HPI - General General Date of Admission: 10/26/22 Date of Service: 10/26/22 Chief Complaint: Fever/mental status change HPI Narrative LARISA ROCK, is a 66 M who presented to the emergency department at [facility] on 10/26/2022 with a chief complaint of fever and mental status change. Patient has dementia at baseline but is typically oriented to self and place and sometimes year. His reports he went to the bathroom and it was in there for quite a long time. She went in to check on him and he was found sitting on a stool and had urinated on the floor which is atypical for him. She helped him up and felt that he was warm so she checked his temperature and found it to be 102.7. At that point she brought him to the emergency department. She is unaware of any sick contacts or any other symptoms. His worsening confusion and fever started earlier today and she noted no abnormality yesterday. Vital signs on presentation demonstrated temperature of 102.7, heart rate 126, blood pressure 140/93, respiratory rate 18 and oxygen saturations are 91 to 94% on room air. CBC shows a leukocytosis with a white count 11.8 and a left shift with neutrophilia of 82.6. Platelet count was elevated at 491,000. Coags are normal. Chemistry panel shows elevated but baseline BUN and creatinine at 23 and 1.59. Glucose was elevated at 1.67. Lactic acid was 0.8. Liver functions are normal. His urine does not show any signs of infection. Chest x-ray was unremarkable for any acute processes. EKG shows normal sinus rhythm with normal intervals and no ST-T wave changes concerning for acute ischemia. [facility] Medical History Allergies Alzheimer disease Arthritis History of basal cell cancer Hypertension Obstructive sleep apnea Stage 3b chronic kidney disease (CKD) Tremor Vertigo Home Medications donepezil 10 mg tablet 10 mg PO DAILY 10/26/22 [History Last Taken Unknown] Allergy/AdvReac Type Severity Reaction Status Date / Time cefaclor [From Ceclor] AdvReac Nausea Verified 10/26/22 18:07 celecoxib [From Celebrex] AdvReac Upset Verified 10/26/22 18:07 Stomach Family History Mother Cancer Father Alzheimer disease Prostate cancer Sister Lymphoma Surgical History H/O total hip arthroplasty Social History household members: spouse Smoking Status: Former smoker alcohol intake: never substance use type: does not use ROS ROS Narrative Patient answers no to all review of systems however he has dementia at baseline and his capacity to give a reliable history is extremely poor Review of Systems ROS Unobtainable: due to mental status Vital Signs Vital Signs Vital Signs: 10/26/22 18:05 10/26/22 19:27 10/26/22 19:29 Temperature 102.7 F H 99.2 F H Temperature Source Oral Oral Pulse Rate 126 H 114 H Respiratory Rate 18 18 Respiratory Effort Normal Non-Labored Respiratory Pattern Normal Blood Pressure 140/93 H 138/82 H Blood Pressure Mean 108 100 Pulse Ox 94 92 Oxygen Delivery Method Room Air Room Air Oxygen Flow Rate (L/min) 10/26/22 20:06 10/26/22 20:07 Temperature Temperature Source Pulse Rate 107 H Respiratory Rate 18 Respiratory Effort Respiratory Pattern Blood Pressure 135/80 H Blood Pressure Mean 98 Pulse Ox 91 93 Oxygen Delivery Method Room Air Oxygen Flow Rate (L/min) 2 Weight Weight: 90.5 kg Body Mass Index (BMI) 26.3 Physical Exam Const alert, no apparent distress and well nourished; Negative for oriented x3 Constitutional Narrative: Upper middle-aged white male, appears pleasant, lying in bed, ill but not toxic, at bedside, oriented to self, place but not time General Appearance: cooperative HEENT normocephalic, head/scalp atraumatic, hearing grossly normal bilaterally and moist oral mucous membranes HEENT Narrative: Dentition is fair, Mallampati is 2, no thrush Eyes PERRL, EOMs intact bilaterally and conjunctivae normal Eyes Narrative: No scleral icterus Neck no lymphadenopathy, supple, no JVD and no carotid bruits Neck Narrative: Acute midline, no thyroid enlargement Resp No no retractions, No no use of accessory muscles and No clear to auscultation bilaterally Resp Narrative: Mild tachypnea, no signs of extremis Auscultation: crackles left base and mid; Negative for rhonchi or wheezes Cardio regular rate, regular rhythm, S1 normal heart sound, S2 normal heart sound, no murmurs, no rub, no gallops and no clicks GI normal to inspection, nondistended, normoactive bowel sounds, soft to palpation and non-tender Extremity no clubbing, cyanosis or edema Extremity Narrative: 2+ pedal pulses Skin no rashes or lesions noted, no wounds, skin turgor normal, no jaundice, no petechiae and no mottling Neuro CN's II-XII intact bilaterally, moves all extremities and no focal motor deficits Neuro Narrative: Generalized weakness Sensorium / Orientation: awake, alert, oriented to person and oriented to place Speech: speech normal Psych affect normal Psych Narrative: Very pleasant, difficulty answering questions due to dementia Results Lab / Micro Data Result Diagrams: 10/26/22 19:50 10/26/22 19:50 Labs: Laboratory Results - last 24 hr 10/26/22 18:35: Urine Color Yellow, Urine Clarity Sl. Cloudy, Urine pH 6.0, Ur Specific [place] 1.010, Urine Protein 100 H, Urine Glucose (UA) Normal, Urine Ketones 5 H, Urine Occult Blood 50 H, Urine Nitrite Negative, Urine Bilirubin Negative, Urine Urobilinogen 8 H, Ur Leukocyte Esterase Negative, Urine RBC 0-5 SEEN, Urine WBC 0 SEEN, Ur Squamous Epith Cells 0 SEEN, Urine Bacteria 0 SEEN, Urine Mucus 0 SEEN 10/26/22 19:50: WBC 11.8 H, RBC 4.93, Hgb 14.8, Hct 44.9, MCV 91.1, MCH 30.0, MCHC 33.0, RDW Std Deviation 47.0 H, RDW Coeff of Magda 14.0, Plt Count 491 H, MPV 9.7, Immature Gran % (Auto) 0.800, Neut % (Auto) 82.6 H, Lymph % (Auto) 9.5 L, [place] % (Auto) 6.7, Eos % (Auto) 0.1, Baso % (Auto) 0.3, Absolute Neuts (auto) 9.7 H, Absolute Lymphs (auto) 1.12, Nucleated RBC % 0 10/26/22 19:50: PT 14.6, INR 1.2, APTT 29.6 10/26/22 19:50: Sodium 139, Potassium 3.6, Chloride 111 H, Carbon Dioxide 26.0, Anion Gap 2 L, BUN 23 H, Creatinine 1.59 H, Estim Creat Clear Calc 50.25, Est GFR (MDRD) Af Amer 56 L, Est GFR (MDRD) Non-Af 46 L, BUN/Creatinine Ratio 14.5, Glucose 167 H, Calcium 8.9, Total Bilirubin 0.70, AST 19, ALT 19, Alkaline Phosphatase 70, Total Protein 7.3, Albumin 3.0 L, Globulin 4.3 H, Albumin/Globulin Ratio 0.7 L 10/26/22 19:50: Lactic Acid 0.8 Micro: Microbiology 10/26/22 19:50 Nasal Secretion SARS-CoV-2 & FLU Antigen (Rapid) - Final Radiology Impression Chest X-Ray 10/26/22 20:05 IMPRESSION: No radiographic evidence of acute cardiopulmonary disease. Electronically Signed: Aditya Edwards DO at 21:15 EDT Reading Location ID and State: [facility] / [place] Tel [phone], Service support , Assessment & Plan Assessment/Plan (1) Debility: (2) Fever: (3) Toxic metabolic encephalopathy: (4) Leukocytosis: (5) Thrombocytosis: (6) Hyperglycemia: PLAN: Plan Fever -Suspect pneumonia as patient has crackles in the left base on exam -Repeat chest x-ray in a.m. once he is more hydrated -Check PCT -Check MRSA PCR -Check respiratory viral panel -Start ceftriaxone azithromycin -Check strep pneumo and Legionella antigens -Check sputum, blood, urine cultures -COVID and flu are negative -As needed albuterol -Supplemental oxygen as needed Toxic/metabolic encephalopathy complicated by dementia -Per at baseline he is oriented to place typically, self and sometimes the month -She noted he was having significant confusion today which is why she checked his temperature and found him to be at 102.7 -Suspect should improve with improvement in infection Leukocytosis/thrombocytosis -Suspect related to the above -Repeat CBC in a.m. -Treat infection Hyperglycemia -Check hemoglobin A1c -Patient is not documented to be diabetic at baseline -May be reactive due to infection CKD stage IIIb -Baseline serum creatinine between 1.5 and 1.8 -Current serum creatinine is 1.59 -Gently hydrate given fevers and insensible losses -Repeat lab in a.m. -Avoid nephrotoxins Debility -PT/OT consultation JORGE -Patient has not been wearing his CPAP with his worsening dementia as he pulls it off at night and it is a struggle for his to get it on -Continue oxygen as needed to keep sats greater than 92% while sleeping Dementia-Alzheimer's type -Continue home Aricept DVT prophylaxis -Lovenox subcu daily CODE STATUS -Full code is verified with on admission Charges/Coding Visit Charges Inpatient E&M: 63306 Init Hosp L2
[2022-10-26 23:27] LABS: Procalcitonin 0.57 ng/mL (0.00-0.09)
[2022-10-26 23:55] VITALS: BMI 26.3
[2022-10-27] VITALS (12 sets, daily range): BP systolic 120–139; BP diastolic 75–93; PULSE 63–86; RESP 16–18; TEMP 36.5–36.8; O2SAT 94–97
[2022-10-27] MEDS: Ceftriaxone 1 GM/50 ML BAG IV ×2 (00:39→22:08)
[2022-10-27] MEDS: 0.9% Normal Saline 1,000 ML 75 ML IV ×2 (00:39→17:02)
[2022-10-27 02:23] LABS: Hemoglobin A1c 5.7 % (3.8-5.6)
[2022-10-27 04:18] LABS: M R Staph aureus DNA By PCR Negative (Negative); Probe Check PASS; Specimen Processing Control PASS
[2022-10-27 06:14] LABS: Absolute Neutrophil Count 6.7 X10^3/uL (2.0-7.7); Basophil# 0.03 X10^3/uL; Basophil% 0.3 % (0-1); Eosinophil# 0.07 X10^3/uL; Eosinophils% 0.8 % (0-5); Hematocrit 43.1 % (40-54); Lymphocyte % 16.3 % (19-41); Mean Corp Hgb Conc 32.5 g/dL (32-36); Mean Corpuscular Hgb 29.9 pg (27.0-32.0); Mean Corpuscular Volume 92.1 fL (80-94); Mean Platelet Vol. 9.5 fl (6.2-12.0); Monocyte# 0.79 X10^3/uL; Monocyte% 8.6 % (0-10); NRBC Flagged by Analyzer 0 % (0-5); Neutrophil # 6.73 X10^3/uL (2.7-7.7); Neutrophil % 73.1 % (47-70); Platelet Count 436 K/mm3 (150-450); RBC Distribution Width CV 14.1 % (11.6-14.6); RBC Distribution Width SD 48.1 fl (35.1-43.9); Red Blood Count 4.68 M/mm3 (4.6-6.2); White Blood Count 9.2 K/mm3 (4.4-11.0)
[2022-10-27 06:51] LABS: ALB/GLOB Ratio 0.6 RATIO (0.9-2.4); AST(SGOT) 16 U/L (15-37); Alanine Aminotransfer ALT/SGPT 17 U/L (16-61); Albumin, Serum 2.6 g/dL (3.2-5.0); Alkaline Phosphatase 63 U/L (45-117); Anion Gap 2 (5-15); BUN 20 mg/dL (7-18); BUN/Creat Ratio 15.2 RATIO (10-20); Calcium,Total 8.4 mg/dL (8.5-10.1); Chloride 112 mmol/L (98-107); Creatinine, Serum 1.32 mg/dL (0.70-1.30); EST Glomerular Filtration Rate 57 mL/min (>60); Est Glom Filt Rate - Afr Amer 69 mL/min (>60); Estimated Creatinine Clearance 60.53 ml/min; Globulin 4.1 g/dL (2.2-4.2); Glucose 81 mg/dL (74-106); Magnesium 2.3 mg/dL (1.6-2.6); Phosphorus 2.2 mg/dL (2.5-4.9); Potassium 3.7 mmol/L (3.5-5.1); Protein, Total 6.7 g/dL (6.4-8.2); Sodium Level 140 mmol/L (136-145); Thyroid Stim Hormone (TSH) 0.73 uIU/mL (0.358-3.74)
--- NOTE | 2022-10-27 07:00 | RAD_ITS ---
EXAM: XR CHEST, 1 VIEW CLINICAL INDICATION: PNA TECHNIQUE: Frontal view of the chest. This report was created using [employer] report generation technology. COMPARISON: 10/26/2022 and 05/05/2022. FINDINGS: LUNGS AND PLEURAL SPACES: Streaky opacities bilaterally in the lung bases appear unchanged since multiple prior exams. No pneumothorax. No effusion. HEART: Unremarkable. Cardiac silhouette not enlarged. MEDIASTINUM: Central airways and mediastinal contour are unremarkable. BONES/JOINTS: Unremarkable. SOFT TISSUES: Unremarkable. RAD/Chest 1 View (Portable) IMPRESSION: Streaky opacities bilaterally in the lung bases appear unchanged since multiple prior exams. This may be due to scarring or atelectasis. No definite consolidation or acute change. Electronically Signed: Kris Newman MD at 6:12 EDT ,
--- NOTE | 2022-10-27 07:45 | PN.HOSP_ITS ---
Reason for Visit Reason for Visit: Diagnoses Elevated white blood cell count, unspecified (10/26/22) Thrombocytosis, unspecified (10/26/22) Other toxic encephalopathy (10/26/22) Fever, unspecified (10/26/22) Other malaise (10/26/22) Hyperglycemia, unspecified (10/26/22) Follow-up for acute encephalopathy, fever. Subjective Subjective Patient is confused and does not remember. Objective Data Objective Data Vital Signs: Vital Signs Temp Pulse Resp BP Pulse Ox O2 Del Method O2 Flow Rate 98.2 F 70 16 136/89 H 96 Nasal Cannula 2 10/27/22 04:25 10/27/22 04:25 10/27/22 04:25 10/27/22 04:25 10/27/22 04:25 10/27/22 04:25 10/27/22 04:25 Oxygen Flow Rate (L/min) 2 Oxygen Delivery Method Nasal Cannula Weight: 199 lb 11.821 oz Body Mass Index (BMI) 26.3 Intake & Output: Intake and Output for Last 24 Hours 10/25/22 10/26/22 10/27/22 23:59 23:59 23:59 Intake Total 1000 / 1000 605 / 605 Balance 1000 / 1000 605 / 605 Lab / Micro Data Result Diagrams: 10/27/22 05:55 10/27/22 05:55 Labs: Laboratory Results - last 24 hr 10/26/22 18:35: Urine Color Yellow, Urine Clarity Sl. Cloudy, Urine pH 6.0, Ur Specific [place] 1.010, Urine Protein 100 H, Urine Glucose (UA) Normal, Urine Ketones 5 H, Urine Occult Blood 50 H, Urine Nitrite Negative, Urine Bilirubin Ne gative, Urine Urobilinogen 8 H, Ur Leukocyte Esterase Negative, Urine RBC 0-5 SEEN, Urine WBC 0 SEEN, Ur Squamous Epith Cells 0 SEEN, Urine Bacteria 0 SEEN, Urine Mucus 0 SEEN 10/26/22 19:50: WBC 11.8 H, RBC 4.93, Hgb 14.8, Hct 44.9, MCV 91.1, MCH 30.0, MCHC 33.0, RDW Std Deviation 47.0 H, RDW Coeff of Magda 14.0, Plt Count 491 H, MPV 9.7, Immature Gran % (Auto) 0.800, Neut % (Auto) 82.6 H, Lymph % (Auto) 9.5 L, [place] % (Auto) 6.7, Eos % (Auto) 0.1, Baso % (Auto) 0.3, Absolute Neuts (auto) 9.7 H, Absolute Lymphs (auto) 1.12, Nucleated RBC % 0 10/26/22 19:50: PT 14.6, INR 1.2, APTT 29.6 10/26/22 19:50: Sodium 139, Potassium 3.6, Chloride 111 H, Carbon Dioxide 26.0, Anion Gap 2 L, BUN 23 H, Creatinine 1.59 H, Estim Creat Clear Calc 50.25, Est GFR (MDRD) Af Amer 56 L, Est GFR (MDRD) Non-Af 46 L, BUN/Creatinine Ratio 14.5, Glucose 167 H, Calcium 8.9, Total Bilirubin 0.70, AST 19, ALT 19, Alkaline Phosphatase 70, Total Protein 7.3, Albumin 3.0 L, Globulin 4.3 H, Albumin/Globulin Ratio 0.7 L 10/26/22 19:50: Lactic Acid 0.8 10/26/22 19:50: Hemoglobin A1c 5.7 H 10/26/22 22:52: Procalcitonin 0.57 H 10/27/22 00:19: MRSA (PCR) Negative 10/27/22 05:55: WBC 9.2, RBC 4.68, Hgb 14.0, Hct 43.1, MCV 92.1, MCH 29.9, MCHC 32.5, RDW Std Deviation 48.1 H, RDW Coeff of Magda 14.1, Plt Count 436, MPV 9.5, Immature Gran % (Auto) 0.900, Neut % (Auto) 73.1 H, Lymph % (Auto) 16.3 L, [place] % (Auto) 8.6, Eos % (Auto) 0.8, Baso % (Auto) 0.3, Absolute Neuts (auto) 6.7, Absolute Lymphs (auto) 1.50, Nucleated RBC % 0 10/27/22 05:55: Sodium 140, Potassium 3.7, Chloride 112 H, Carbon Dioxide 26.0, Anion Gap 2 L, BUN 20 H, Creatinine 1.32 H, Estim Creat Clear Calc 60.53, Est GFR (MDRD) Af Amer 69, Est GFR (MDRD) Non-Af 57 L, BUN/Creatinine Ratio 15.2, Glucose 81, Calcium 8.4 L, Phosphorus 2.2 L, Magnesium 2.3, Total Bilirubin 0.70, AST 16, ALT 17, Alkaline Phosphatase 63, Total Protein 6.7, Albumin 2.6 L, Globulin 4.1, Albumin/Globulin Ratio 0.6 L, TSH 0.73 Micro: Microbiology 10/26/22 18:35 Urine, Clean Catch Legionella Antigen - Final 10/26/22 18:35 Urine, Clean Catch Streptococcus pneumoniae Antigen (M - Fin al 10/26/22 19:50 Nasal Secretion SARS-CoV-2 & FLU Antigen (Rapid) - Final Radiography Diagnostic Testing: Radiology Impression Chest X-Ray 10/26/22 20:05 IMPRESSION: No radiographic evidence of acute cardiopulmonary disease. Electronically Signed: Aditya Edwards DO at 21:15 EDT , Chest X-Ray 10/27/22 07:00 IMPRESSION: Streaky opacities bilaterally in the lung bases appear unchanged since multiple prior exams. This may be due to scarring or atelectasis. No definite consolidation or acute change. Electronically Signed: Kris Newman MD at 6:12 EDT , Physical Exam Narrative Seen and examined. Patient knows his date of but cannot tell the age. Disoriented with time. Physical exam General: Awake, oriented x2 to place and person. Follows simple command. HEENT: Atraumatic, PERRLA, EOMI, Normocephalic Oral: Oral mucosa moist. No Gingival or Mucosal Lesions/ Ulcerations Neck: Supple, No JVD, Negative Carotid Bruits Lungs: Air entry diminished in bilateral lung bases. No crepitation/rhonchi Cardiovascular: Regular rate, Regular Rhythm, Normal S1, Normal S2, No murmurs Abdomen: Bowel Sounds Present, Soft, Non Tender, Non-Distended : No renal angle tenderness. No suprapubic tenderness. Extremities: No edema, Capillary Refill Less than 3 Seconds Skin: Dermatitis chronic skin lesions, flesh-colored patchy lesions. Psoriasis. Musculoskeletal: No Tenderness to Palpation of Joints or Extremities. ROM intact. Muscle strength 5/5 at knee and hip joints. Neurological: Cranial nerves II-XII grossly intact, DTR 2+/4 no focal neurological deficit. Psych/Mental Status: Flat affect. Delirium. Amnesia. Assessment & Plan Assessment/Plan (1) Toxic metabolic encephalopathy: (2) Thrombocytosis: PLAN: Plan 66-year-old gentleman admitted for evaluation of fever, confusion worse than baseline with history of dementia. Fever was 102 Fahrenheit. Patient was sent to ED from urgent care and was hypoxic there.. 1. Fever, exact etiology unclear with mild hypoxia suspected viral infection: Chest x-ray initially reviewed and shows mild streaky opacity in lung bases possible atelectasis/scarring. Repeat chest x-ray does not show acute change. Overall suspicion for pneumonia is low. Patient does not have acute focal symptoms of pneumonia.Urinary antigens are negative. SARS-CoV-2 and flu antigen are negative. Respiratory panel pending. Patient has mild leukocytosis and thrombocytosis. Patient does not have features of cellulitis but has chronic skin lesion dermatitis/psoriasis Hyperglycemia: A1c 5.7 prediabetes. CKD stage IIIb -Baseline serum creatinine between 1.5 and 1.8. Admitting creatinine 1.59 improved to 1.32 with hydration. Avoid nephrotoxins. Debility -PT/OT consultation JORGE -Patient has not been wearing his CPAP with his worsening dementia as he pulls it off at night and it is a struggle for his to get it on -Continue oxygen as needed to keep sats greater than 92% while sleeping Dementia-Alzheimer's type -Continue home Aricept DVT prophylaxis -Lovenox subcu daily CODE STATUS -Full code is verified with on admission Clinical Impression(s) from Imaging Studies Chest X-Ray 10/26/22 20:05 IMPRESSION: No radiographic evidence of acute cardiopulmonary disease. Chest X-Ray 10/27/22 07:00 IMPRESSION: Streaky opacities bilaterally in the lung bases appear unchanged since multiple prior exams. This may be due to scarring or atelectasis. No definite consolidation or acute change. 2. Acute encephalopathy probably due to infectious/metabolic on baseline dementia: Patient is confused disoriented with decreased comprehensible understanding, incoherent speech with fever. Baseline patient is oriented to place and sometimes the month. Charges/Coding Visit Charges Inpatient E&M: 12113 Subs Hosp L2
[2022-10-27] MEDS: guaiFENesin 1,200 MG Tablet 1200 MG PO ×2 (08:04→22:10)
[2022-10-27] MEDS: Enoxaparin 40 MG/0.4 ML Syringe SC (08:04)
[2022-10-27] MEDS: Donepezil HCl 10 MG Tablet PO (08:04)
--- NOTE | 2022-10-27 14:02 | CHAPLAIN ---
Type of Pastoral Visit _x__ Initial Visit ___ Follow-up Visit ___ On-call Visit ___ General Patient Visit ___ Spiritual Assessment ___ Family Conference ___ Bereavement ___ Rapid Response ___ Code Blue ___ Other (describe below) Pastoral Care Referral From _x__ Patient ___ Family ___ Nurse ___ Physician ___ Evp General Counsel ___ Door Maker ___ Other (describe below) Sacrament/Intervention _x__ Active listening ___ Anointing ___ Restorationism ___ Bereavement ___ Communion ___ Scarlet exploration ___ _x__ Life review _x__ Prayer ___ Reconciliation ___ Sacrament of Sick _x__ Supportive presence ___ Wedding ___ Other (describe below) Pastoral Comments
--- NOTE | 2022-10-27 14:15 | CASEMGMT ---
RN CM Assessment: TC to pt for initial transition planning/care coordination assessment as pt has confusion per nurse. RN CM introduced self and role at [facility], pt voices understanding and consents to assessment. Care providers, pharmacy, and demographics verified/updated. Admitting Dx: fever/toxic/metabolic encephalopathy PCP:SACHIN Garcia Specialists:claudia Foley Pharmacy: [facility] Insurance: [facility] Prescription Benefit: yes LNOK: Sean Bridges, ; Mai Gibson, dtr Living Arrangements: Pt lives with in a single story home with 1 step to enter. reports pt is able to bathe and dress self independently but sometimes puts on 4 or more shirts or garments. is present for bathing for safety. Pt is able to make his own lunch but performs other housekeeping tasks. Transportation: Pt transports pt to medical appts. DME/HHC/SNF: Pt has a CPAP and walker but does not use either. Pt also has a high rise toilet seat. Pt has had [facility] in the past and been to [facility]. Pt states no concerns with pt going home at time of dc. Pt states no further concerns/needs. CM to follow. Advised pt to ask CM if any further question/concerns/needs arise, voices understanding. Pt Goal: Home Plan: Home, no therapy ordered.
--- NOTE | 2022-10-27 18:35 | PCA ---
FAMILY BROUGHT IN LIVING WILL AND POWER OF [employer]LE [employer]IED WATCHMAN PAPERS. COPIED AND PUT IN CHART
[2022-10-27 18:38] LABS: Erythrocyte Sedimentation Rate 47 mm/hr (0-20)
--- NOTE | 2022-10-27 23:49 | CPS ---
Patient refuses CPAP use at this time, he states he does not wear a CPAP at home currently.
[2022-10-28 02:22] VITALS: BP 142/83; PULSE 66; RESP 16; TEMP 36.6; O2SAT 96
[2022-10-28] MEDS: guaiFENesin 10 ML UDC (200MG/10ML) 20 ML PO (05:35)
[2022-10-28 07:11] VITALS: O2SAT 96
[2022-10-28 07:18] LABS: Anion Gap 4 (5-15); BUN 20 mg/dL (7-18); BUN/Creat Ratio 15.6 RATIO (10-20); Calcium,Total 8.8 mg/dL (8.5-10.1); Chloride 112 mmol/L (98-107); Creatinine, Serum 1.28 mg/dL (0.70-1.30); EST Glomerular Filtration Rate 59 mL/min (>60); Est Glom Filt Rate - Afr Amer 72 mL/min (>60); Estimated Creatinine Clearance 62.42 ml/min; Glucose 86 mg/dL (74-106); Potassium 3.7 mmol/L (3.5-5.1); Sodium Level 138 mmol/L (136-145)
[2022-10-28] MEDS: Enoxaparin 40 MG/0.4 ML Syringe SC (08:20)
[2022-10-28] MEDS: guaiFENesin 1,200 MG Tablet 1200 MG PO (08:20)
[2022-10-28] MEDS: Donepezil HCl 10 MG Tablet PO (08:20)
[2022-10-28 08:21] VITALS: BP 153/89; PULSE 80; RESP 18; TEMP 36.7; O2SAT 95
--- NOTE | 2022-10-28 11:01 | DCINST_ITS ---
Discharge Instructions Diet Discharge Diet: No restrictions and - (Droplet precaution for 5 more days) Activity Discharge Activity: Return to Normal Activity Weight Bearing Status: Weight bearing as tolerated Dressing / Incision Call your doctor if you observe: Fever of 101 or Higher, Coldness, Increased Pain, Numbness or Tingling, Change in Color, Inability to urinate, Inability to have a bowel movement, Shortness of breath, Dizziness, Fainting spells, Swelling in the ankles, Chest pain, Prolonged hiccupping, Increased palpitations (irregular heartbeat) and Calf discomfort Follow Up Care When: IN 2 WEEKS Test Results: Test results from this visit will be discussed in further detail at your follow- up appointment, if applicable. Discharge Plan Admission Admit Date/Time: 10/26/22 22:34 Primary Reason for Your Visit: Bilateral pneumonia from parainfluenza virus and strep pneumonia Attending Provider: Chino Taylor Primary Care Provider: Clifton Doran Consulting Providers: Sydney Donis Discharge Orders/Prescriptions Prescriptions: New levofloxacin 500 mg Tablet 500 mg PO DAILY@0600 6 Days Qty: 6 0RF Mucus Relief ER 1,200 mg Tablet Extended Release 12hr 1,200 mg PO BID 7 Days Qty: 14 0RF losartan 50 mg tablet 50 mg PO DAILY Qty: 30 1RF Continued donepezil 10 mg tablet 10 mg PO DAILY Label Comments: TAKE 1 TABLET BY MOUTH ONCE DAILY AT BEDTIME Referrals / Follow Up: Gagandeep Philippe MD [Med Staff - Active Staff] - Within 1 Month (for PFT) Clifton Doran PA [Primary Care Provider] - Disposition Disposition (needs filled in before D/C Order can be placed): Home, Self Care
[2022-10-28] MEDS: levoFLOXacin 500 MG Tablet PO (12:03)
--- NOTE | 2022-10-28 12:06 | DS.PCM_ITS ---
Providers Date of Admission: 10/26/22 Date of Discharge: 10/28/22 Primary Care Physician: SACHIN Torres Reason For Visit: FEVER/TOXIC/METABOLIC ENCEPHALOPATHY Diagnosis Discharge Diagnosis (1) Toxic metabolic encephalopathy: Status: Acute Code(s): G92.8 - Other toxic encephalopathy (2) Thrombocytosis: Status: Acute Code(s): D75.839 - Thrombocytosis, unspecified Plan 66-year-old gentleman admitted for evaluation of fever, confusion worse than baseline with history of dementia. Fever was 102 Fahrenheit. Patient was sent to ED from urgent care and was hypoxic there.. 1. Bilateral lower lobes pneumonia due to parainfluenza virus with secondary bacterial infection from Streptococcus pneumonia: Chest x-ray initially reviewed and shows mild streaky opacity in lung bases possible atelectasis/scarring. R epeat chest x-ray does not show acute change. Patient had a mild cough but not shortness of breath tachypnea or labored breathing. Urinary antigens are negative. SARS-CoV-2 and flu antigen are negative. Respiratory panel positive for parainfluenza virus 3 and urine antigen positive for Streptococcus pneumonia. Patient had 2 days of IV antibiotic ceftriaxone. Patient is discharged on 6 more days of Levaquin along with Mucinex. Continue incentive spirometry and Pep for 1 week. Droplet precaution for 5 more days. Although allergy shows allergic to cefaclor with nausea but patient tolerated ceftriaxone well. I think this might be listed as side effect rather than allergy. Patient has mild leukocytosis and thrombocytosis probably due to pneumonia. Patient does not have features of cellulitis but has chronic skin lesion dermatitis/psoriasis Acute encephalopathy most likely infectious from pneumonia possible metabolic: Patient was confused disoriented to time and place, high fever, abnormal behavior, incoherent speech suggestive of acute encephalopathy exacerbated by infection/pneumonia on baseline dementia Hyperglycemia: A1c 5.7 prediabetes. CKD stage IIIb -Baseline serum creatinine between 1.5 and 1.8. Admitting creatinine 1.59 improved to 1.32 with hydration. Avoid nephrotoxins. 10/28: Kidney function on baseline BUN 20, creatinine 1.28. Debility -PT/OT consultation JORGE -Patient has not been wearing his CPAP with his worsening dementia as he pulls it off at night and it is a struggle for his to get it on -Continue oxygen as needed to keep sats greater than 92% while sleeping Dementia-Alzheimer's type -Continue home Aricept DVT prophylaxis -Lovenox subcu daily CODE STATUS -Full code is verified with on admission Patient baseline functional status is on walker. Patient had PT and OT. Patient is discharged home. Patient is a former smoker [facility] Discharge medication reconciliation done. Discharge follow-up instructions completed. Discharge process discussed with the patient and all questions were answered to patient's satisfaction. Total time spent, exact 35 minutes on discharge meds reconciliation, examination , coordination of care with nurses and ancillary staff, review of imaging and blood test and discussion with the patient on follow-up instructions. Clinical Impression(s) from Imaging Studies Chest X-Ray 10/26/22 20:05 IMPRESSION: No radiographic evidence of acute cardiopulmonary disease. Chest X-Ray 10/27/22 07:00 IMPRESSION: Streaky opacities bilaterally in the lung bases appear unchanged since multiple prior exams. This may be due to scarring or atelectasis. No definite consolidation or acute change. 2. Acute encephalopathy probably due to infectious/metabolic on baseline dementia: Patient is confused disoriented with decreased comprehensible understanding, incoherent speech with fever. Baseline patient is oriented to place and sometimes the month. Medications at Discharge Home Medications donepezil 10 mg tablet 10 mg PO DAILY 10/26/22 guaifenesin 1,200 mg tablet, extended release 12 hr (Mucus Relief ER) 1,200 mg PO BID 7 days #14 tabs 10/28/22 levofloxacin 500 mg tablet 500 mg PO DAILY@0600 6 days #6 tabs 10/28/22 losartan 50 mg tablet 50 mg PO DAILY #30 tabs 10/28/22 Physical Exam Narrative Seen and examined. Patient is awake alert oriented x3. Physical exam General: Awake alert oriented x3. Patient is coherent. Behavior and appearance normal. HEENT: Atraumatic, PERRLA, EOMI, Normocephalic Oral: Oral mucosa moist. No Gingival or Mucosal Lesions/ Ulcerations Neck: Supple, No JVD, Negative Carotid Bruits Lungs: Air entry diminished in bilateral lung bases. No crepitation/rhonchi Cardiovascular: Regular rate, Regular Rhythm, Normal S1, Normal S2, No murmurs Abdomen: Bowel Sounds Present, Soft, Non Tender, Non-Distended : No renal angle tenderness. No suprapubic tenderness. Extremities: No edema, Capillary Refill Less than 3 Seconds Skin: Dermatitis chronic skin lesions, mild pinkish patchy lesions. Psoriasis. Musculoskeletal: No Tenderness to Palpation of Joints or Extremities. ROM intact. Muscle strength 5/5 at knee and hip joints. Neurological: Cranial nerves II-XII grossly intact, DTR 2+/4 no focal neurolo gical deficit. Psych/Mental Status: Flat affect. Delirium resolved. Amnesia. Weight / BMI Weight Weight: 199 lb 11.821 oz Body Mass Index (BMI) 26.3 ABG / Lab / Microbiology Data Result Diagrams: 10/27/22 05:55 10/28/22 06:42 Laboratory: Laboratory Results - last 24 hr 10/27/22 05:55: ESR 47 H 10/27/22 05:55: C-React Prot Ext Range 139.00 H 10/28/22 06:42: Sodium 138, Potassium 3.7, Chloride 112 H, Carbon Dioxide 22.0, Anion Gap 4 L, BUN 20 H, Creatinine 1.28, Estim Creat Clear Calc 62.42, Est GFR (MDRD) Af Amer 72, Est GFR (MDRD) Non-Af 59 L, BUN/Creatinine Ratio 15.6, Glucose 86, Calcium 8.8 Microbiology: Microbiology 10/26/22 18:35 Urine, Clean Catch Urine Culture - Final Mixed Gram Positive Organisms 10/27/22 00:40 Mucosa - Nasopharyngeal Respiratory Panel (PCR) - Final Parainfluenza 3 10/26/22 18:35 Urine, Clean Catch Legionella Antigen - Final 10/26/22 18:35 Urine, Clean Catch Streptococcus pneumoniae Antigen (M - Final Streptococcus pneumonia Ag 10/26/22 19:50 Nasal Secretion SARS-CoV-2 & FLU Antigen (Rapid) - Final D/C Instructions Discharge Diet: No restrictions and - (Droplet precaution for 5 more days) Weight Bearing Status: Weight bearing as tolerated Call your doctor if you observe: Fever of 101 or Higher, Coldness, Increased Pain, Numbness or Tingling, Change in Color, Inability to urinate, Inability to have a bowel movement, Shortness of breath, Dizziness, Fainting spells, Swelling in the ankles, Chest pain, Prolonged hiccupping, Increased palpitations (irregular heartbeat) and Calf discomfort When: IN 2 WEEKS Meaningful Use Info Meaningful Use Diagnoses (Choose all that apply): None applicable Discharge Plan Admission Admit Date/Time: 10/26/22 22:34 Primary Reason for Your Visit: Bilateral pneumonia from parainfluenza virus and strep pneumonia Attending Provider: Chino Taylor Primary Care Provider: Clifton Doran Consulting Providers: Sydney Donis Discharge Orders/Prescriptions Prescriptions: New levofloxacin 500 mg Tablet 500 mg PO DAILY@0600 6 Days Qty: 6 0RF Mucus Relief ER 1,200 mg Tablet Extended Release 12hr 1,200 mg PO BID 7 Days Qty: 14 0RF losartan 50 mg tablet 50 mg PO DAILY Qty: 30 1RF Continued donepezil 10 mg tablet 10 mg PO DAILY Label Comments: TAKE 1 TABLET BY MOUTH ONCE DAILY AT BEDTIME Referrals / Follow Up: Gagandeep Philippe MD [Med Staff - Active Staff] - Within 1 Month (for PFT) Clifton Doran PA [Primary Care Provider] - Disposition Disposition (needs filled in before D/C Order can be placed): Home, Self Care Charges/Coding Visit Charges Inpatient E&M: 65155 Disch Hosp >30min
--- NOTE | 2022-10-28 14:55 | PHA.DC.MR ---
Pharmacy Service has performed discharge medication reconciliation for this patient. The patient's discharge medication list was reviewed for discrepancies and discrepancies were resolved. Did not budget counselor, pt confused, baseline dementia. Did not see any one else in room to budget counselor. Home Medications donepezil 10 mg tablet 10 mg PO DAILY 10/26/22 guaifenesin 1,200 mg tablet, extended release 12 hr (Mucus Relief ER) 1,200 mg PO BID 7 days #14 tabs 10/28/22 levofloxacin 500 mg tablet 500 mg PO DAILY@0600 6 days #6 tabs 10/28/22 losartan 50 mg tablet 50 mg PO DAILY #30 tabs 10/28/22
[2022-10-28 15:12] VITALS: BP 158/96; PULSE 85; RESP 18; TEMP 36.6; O2SAT 97
== END 2022-10-28 17:16 | disposition home or self-care (01) | DRG 193 ==
LOC: ED 20:33 → MS3 10-27 02:17
PROVIDERS: Admitting Provider Internal Medicine; Emergency Provider Student in an Organized Health Care Education/Training Program; PCP Physician Assistant; Visit Provider Internal Medicine
DX: J12.2 Parainfluenza virus pneumonia (principal); J15.4 Pneumonia due to other streptococci; G93.41 Metabolic encephalopathy; G30.9 Alzheimer's disease, unspecified; F02.80 Dementia in other diseases classified elsewhere, unspecified severity, without behavioral disturbance, psychotic disturbance, mood disturbance, and anxiety; I12.9 Hypertensive chronic kidney disease with stage 1 through stage 4 chronic kidney disease, or unspecified chronic kidney disease; N18.32 Chronic kidney disease, stage 3b; R09.02 Hypoxemia; R73.03 Prediabetes; G47.33 Obstructive sleep apnea (adult) (pediatric); L40.9 Psoriasis, unspecified; Z79.899 Other long term (current) drug therapy; Z87.891 Personal history of nicotine dependence
CPT/HCPCS: 36415; 71045; 80048; 80053; 81001; 83036; 83605; 83735; 84100; 84145; 84443; 85025; 85610; 85652; 85730; 86140; 87040; 87070; 87086; 87088; 87205; 87428; 87449; 87633; 87641; 93005; 94668; 97161; 97165; 99252; 99284; J7030; A4216; G0463; J0696

== ENCOUNTER 2022-11-05 07:12 | Emergency (ER) | payer MEDICARE, SELFPAY ==
[2022-11-05 07:13] VITALS: BP 149/102; PULSE 84; RESP 17; TEMP 36.2; O2SAT 97; BMI 30.4
--- NOTE | 2022-11-05 07:21 | ED.VIS.LOWEX ---
HPI History of Present Illness Chief Complaint: Lower Extremity Injury Narrative Narrative: 66-year-old male past medical history of Alzheimer's dementia, previous artificial hip dislocation presents with right hip pain and dislocation. According to his , he did not fall. He was sitting on the couch and told her that he had a problem again with his right hip. He had previously dislocated his hip and had to come to the emergency department for closed reduction and sedation. He denies other injuries. History and physical is mildly limited secondary to his dementia. PFSH PFS Medical History Allergies Alzheimer disease Arthritis History of basal cell cancer Hypertension Obstructive sleep apnea Stage 3b chronic kidney disease (CKD) Tremor Vertigo Home Medications donepezil 10 mg tablet 10 mg PO DAILY 10/26/22 [History Last Taken Unknown] losartan 50 mg tablet 50 mg PO DAILY #30 tabs 10/28/22 [Rx Last Taken Unknown] Allergy/AdvReac Type Severity Reaction Status Date / Time cefaclor [From Ceclor] AdvReac Nausea Verified 11/05/22 07:19 celecoxib [From Celebrex] AdvReac Upset Verified 11/05/22 07:19 Stomach Family History Mother Cancer Father Alzheimer disease Prostate cancer Sister Lymphoma Surgical History H/O total hip arthroplasty Social History household members: spouse Smoking Status: Former smoker alcohol intake: never substance use type: does not use ROS ROS ED ROS Narrative Unable to obtain fully from patient, secondary to dementia. Constitutional: No fever, no chills. HEENT: No sore throat. No neck pain. No loss of vision. No rhinorrhea. Cardiovascular: No chest pain. No palpitations. No pedal edema. Respiratory: No cough, no shortness of breath. Abdominal: No abdominal pain. No nausea. No vomiting. Genitourinary: No dysuria. No hematuria. Musculoskeletal: No myalgias. Right hip pain arthralgias. Neurologic: No headaches. No dizziness. No lightheadedness. Skin: No rash. No change in color. Psychiatric: No depression. No anxiety. Review of Systems ROS Unobtainable: due to mental condition EXAM Physical Exam Narrative Exam Narrative: Afebrile. Vital signs noted. HEENT: Normocephalic. Atraumatic. PERRL, EOMI. Neck soft and supple. No point tenderness or step off. Cardiovascular: Regular rate and rhythm. No murmurs, rubs, or gallops appreciated. Respiratory: No tachypnea. Lungs clear to auscultation bilaterally. Gastrointestinal: Abdomen soft, nontender, with normoactive bowel sounds. No rebound or guarding. Neurological: Awake. Alert. Nonfocal, nonlateralizing. Skin: No rash. Normal color. No pallor. Musculoskeletal: No pedal edema. Full range of motion extremities. Pelvis stable. Limited range of motion right hip secondary to pain. Internal rotation right foot with mild shortening. Const Vital Signs: 11/05/22 07:13 11/05/22 09:05 11/05/22 09:06 Temperature 97.2 F L 97.2 F L Temperature Source Oral Pulse Rate 84 72 Pulse Rate [1 (Initial Baseline)] 82 Pulse Rate [2] 73 Pulse Rate [3] 62 Pulse Rate [4] 59 L Pulse Rate [5] 64 Pulse Rate [6] 77 Pulse Rate [Procedural sedation] 77 Respiratory Rate 17 21 H Respiratory Rate [1 (Initial Baseline)] 21 H Respiratory Rate [2] 15 Respiratory Rate [3] 12 Respiratory Rate [4] 34 H Respiratory Rate [5] 14 Respiratory Rate [6] 18 Respiratory Rate [Procedural sedation] 24 H Blood Pressure 149/102 H 144/97 H Blood Pressure [1 (Initial Baseline)] 144/97 H Blood Pressure [2] 140/96 H Blood Pressure [3] 125/85 H Blood Pressure [4] 120/85 H Blood Pressure [5] 125/90 H Blood Pressure [6] 129/86 H Blood Pressure Mean 117 Pulse Ox 97 99 Oxygen Delivery Method Room Air Nasal Cannula Oxygen Delivery Method [1 (Initial Baseline)] Nasal Cannula Oxygen Delivery Method [2] Nasal Cannula Oxygen Delivery Method [3] Non-Rebreather Oxygen Delivery Method [4] Non-Rebreather Oxygen Delivery Method [5] Nasal Cannula Oxygen Delivery Method [6] Room Air Oxygen Delivery Method [Procedural sedation] Nasal Cannula Oxygen Flow Rate (L/min) 2 Oxygen Flow Rate (L/min) [1 (Initial Baseline)] 2 Oxygen Flow Rate (L/min) [2] 2 Oxygen Flow Rate (L/min) [3] 98 Oxygen Flow Rate (L/min) [4] 10 Oxygen Flow Rate (L/min) [5] 2 Oxygen Flow Rate (L/min) [Procedural sedation] 2 Fraction of Inspired Oxygen (FIO2) [3] 15 11/05/22 09:32 11/05/22 10:36 Temperature Temperature Source Pulse Rate 72 Pulse Rate [1 (Initial Baseline)] Pulse Rate [2] Pulse Rate [3] Pulse Rate [4] Pulse Rate [5] Pulse Rate [6] Pulse Rate [Procedural sedation] Respiratory Rate 16 Respiratory Rate [1 (Initial Baseline)] Respiratory Rate [2] Respiratory Rate [3] Respiratory Rate [4] Respiratory Rate [5] Respiratory Rate [6] Respiratory Rate [Procedural sedation] Blood Pressure 146/88 H Blood Pressure [1 (Initial Baseline)] Blood Pressure [2] Blood Pressure [3] Blood Pressure [4] Blood Pressure [5] Blood Pressure [6] Blood Pressure Mean 107 Pulse Ox 98 Oxygen Delivery Method Room Air Room Air Oxygen Delivery Method [1 (Initial Baseline)] Oxygen Delivery Method [2] Oxygen Delivery Method [3] Oxygen Delivery Method [4] Oxygen Delivery Method [5] Oxygen Delivery Method [6] Oxygen Delivery Method [Procedural sedation] Oxygen Flow Rate (L/min) Oxygen Flow Rate (L/min) [1 (Initial Baseline)] Oxygen Flow Rate (L/min) [2] Oxygen Flow Rate (L/min) [3] Oxygen Flow Rate (L/min) [4] Oxygen Flow Rate (L/min) [5] Oxygen Flow Rate (L/min) [Procedural sedation] Fraction of Inspired Oxygen (FIO2) [3] MDM MDM MDM Narrative Medical decision making narrative: I reviewed the patient's prior ED visit. Patient will be consented for procedural sedation for closed reduction of his right hip. I reviewed his initial x-ray which shows a superior and lateral dislocation of the hip prosthesis of the femoral head. He was administered morphine for analgesia. He was consented for closed reduction of the right hip. See procedure note for details. Procedure note: Timeout was performed. A total of 140 mg of propofol was administered to the patient. He had a transient dip in his pulse ox which resolved with jaw thrust maneuver and being placed on a nonrebreather mask. With the assistance of Dr. Panchito Batista and myself performing pelvis stabilization, close reduction was performed of the right hip. Patient was placed in a knee immobilizer. Patient tolerated procedure well. I reviewed and interpreted the x-rays of the postreduction x-rays which shows anatomical alignment. Patient has been placed in a knee immobilizer. He declined any narcotic analgesics and states he will take Tylenol and Advil as he usually had done with his last closed hip reduction. He will follow-up with his orthopedic surgeon, Dr. Foley. I feel he can be discharged safely home with follow-up. Return instructions to the emergency department were reviewed. Disposition is discharged home in improved and stable condition. History & Record Review Discussion w/independent historian: Patient and Significant other Additional record(s) reviewed:: Prior ED visit (Previous closed reduction of right hip.) Radiography Diagnostic Testing: Clinical Impression(s) from Imaging Studies Hip/Pelvis X-Ray 11/05/22 07:30 IMPRESSION: Superior and lateral dislocation of the replaced femoral head relative to the replaced acetabular cup. Follow-up recommended to ensure anatomic alignment after reduction No demonstrated fracture or evidence of hardware loosening or infection Electronically Signed: Renny Hassan MD at 8:16 EDT , Discharge Plan Triage Chief Complaint: Lower Extremity Injury ED Provider: Doug Wilkinson Dx/Rx/DC Orders Clinical Impression: Hip dislocation, right, Status post closed reduction of dislocated total hip prosthesis Instructions: ED Procedural Sedation, (Adult), ED Hip Replace Dislocation Reduc Prescriptions: No Action donepezil 10 mg tablet 10 mg PO DAILY Label Comments: TAKE 1 TABLET BY MOUTH ONCE DAILY AT BEDTIME losartan 50 mg tablet 50 mg PO DAILY Qty: 30 1RF Primary Care Provider: Clifton Doran Referrals: Clifton Doran PA [Primary Care Provider] - Activity Restrictions/Additional Instructions: Take Tylenol or Advil as you had in the past for pain. Keep the knee immobilizer on until cleared by your orthopedic surgeon, Dr. Foley. If you remove it, there is a high percentage that your right hip prosthesis will dislocate again. Disposition Disposition: Home, Self Care
--- NOTE | 2022-11-05 07:30 | RAD_ITS ---
STUDY: X-RAY - PELVIS AND RIGHT HIP REASON FOR EXAM: Male, 66 years old. Acute pain, dislocation suspected TECHNIQUE: 3 views of the pelvis and hip. COMPARISON: None. FINDINGS: The right hip has been previously replaced. There is superior and lateral dislocation of the femoral component relative to the acetabular component. Follow-up imaging recommended to ensure anatomic alignment after reduction. No demonstrated fracture in the visualized pelvis or femur. No suspicious lucency around the femoral component or acetabular component to suspect loosening or infection. Age consistent left hip and SI joint arthrosis. RAD/HIP, UNI W/ Pelvis 2-3 Views IMPRESSION: Superior and lateral dislocation of the replaced femoral head relative to the replaced acetabular cup. Follow-up recommended to ensure anatomic alignment after reduction No demonstrated fracture or evidence of hardware loosening or infection Electronically Signed: Renny Hassan MD at 8:16 EDT ,
[2022-11-05] MEDS: Morphine 4 MG/ML Syringe IV (08:26)
[2022-11-05 09:05] VITALS: BP 144/97; PULSE 72; RESP 21; TEMP 36.2; O2SAT 99
[2022-11-05 09:06] VITALS: BP 120/85; BP 125/85; BP 125/90; BP 129/86; BP 140/96; BP 144/97; PULSE 59; PULSE 62; PULSE 64; PULSE 73; PULSE 77; PULSE 82; RESP 12; RESP 14; RESP 15; RESP 18; RESP 21; RESP 24; RESP 34; O2SAT 95; O2SAT 96; O2SAT 97; O2SAT 98; O2SAT 99
--- NOTE | 2022-11-05 09:21 | RAD_ITS ---
STUDY: X-RAY - PELVIS AND RIGHT HIP REASON FOR EXAM: Male, 66 years old. Post reduction TECHNIQUE: 2 views of the pelvis and hip. COMPARISON: Comparison is made with prior study done earlier today. FINDINGS: The patient is status post reduction of the right hip prosthesis. There is satisfactory reduction. RAD/Hip Min 2 Views (Portable) IMPRESSION: Satisfactory reduction of the right hip prosthesis. Electronically Signed: Apollo Miranda MD at 10:52 EDT ,
[2022-11-05 09:32] VITALS: BP 129/86; O2SAT 96
[2022-11-05 10:36] VITALS: BP 146/88; PULSE 72; RESP 16; O2SAT 98
[2022-11-05] MEDS: Propofol 200 MG/20 ML Vial IV BOLUS (10:38)
[2022-11-05 11:10] VITALS: BP 124/76; PULSE 71; RESP 16; O2SAT 98
== END 2022-11-05 11:10 | disposition home or self-care (01) ==
PROVIDERS: Emergency Provider Emergency Medicine; PCP Physician Assistant; Referring Provider Emergency Medicine; Visit Provider Emergency Medicine
DX: T84.020A Dislocation of internal right hip prosthesis, initial encounter (principal); G30.9 Alzheimer's disease, unspecified; Z96.641 Presence of right artificial hip joint; Z87.891 Personal history of nicotine dependence; I10 Essential (primary) hypertension; X58.XXXA Exposure to other specified factors, initial encounter
CPT/HCPCS: 27250; 73502; 96374; 99152; 99153; 99285; J7030; A4216

== ENCOUNTER 2022-12-31 02:22 | Emergency (ER) | payer MEDICARE, SELFPAY ==
[2022-12-31 02:23] VITALS: BP 163/89; PULSE 70; RESP 18; TEMP 36.4; O2SAT 99; BMI 26.6
[2022-12-31] MEDS: LORazepam 1 MG Tablet PO (03:11)
[2022-12-31 03:13] LABS: Bacteria 0 SEEN /hpf (None Seen); Mucous, Urine 0 SEEN /hpf (<or=2+); Red Blood Cells-Urine 0 SEEN /hpf (0-5); Squamous Epithelial Cells - UA 0 SEEN /hpf (0-5); White Blood Cells 0 SEEN /hpf (0-5)
[2022-12-31 03:17] LABS: Color, Urine Yellow (Yellow); Glucose, Dipstick Normal (Normal); Ketone-Dipstick Negative (Negative); Leukocyte Esterase-Dipstick Negative /ul (Negative); Nitrite-Dipstick Negative (Negative); Occult Blood-Urine Negative /ul (Negative); Protein-Dipstick Negative (Negative); Specific Gravity, Urine 1.005 (1.002-1.030); Urine Bilirubin Dipstick Negative (Negative); Urine Clarity Clear (Clear); Urine Urobilinogen Normal (Normal)
--- NOTE | 2022-12-31 03:46 | EX.ED.DYSGE1 ---
HPI History of Present Illness Chief Complaint: General Illness Informant: patient and spouse/S.O. Narrative Narrative: Patient is a 67-year-old male with past medical history of Alzheimer's dementia and hypertension. states that he awoke this evening and was complaining of lower chest pressure which then moved to his abdomen and now into his legs. She states he is acting very nervous and anxious and she cannot get him back to bed and as he has multiple complaints and is hyperactive at home she brings him in for evaluation [facility] Medical History Allergies Alzheimer disease Arthritis History of basal cell cancer Hypertension Obstructive sleep apnea Stage 3b chronic kidney disease (CKD) Tremor Vertigo Home Medications donepezil 10 mg tablet 10 mg PO DAILY 10/26/22 [History Last Taken Unknown] losartan 50 mg tablet 50 mg PO DAILY #30 tabs 10/28/22 [Rx Last Taken Unknown] lorazepam 1 mg tablet (Ativan) 1 mg PO TID PRN anxiety 5 days #15 tabs 12/31/22 [Rx Last Taken Unknown] Allergy/AdvReac Type Severity Reaction Status Date / Time cefaclor [From Ceclor] AdvReac Nausea Verified 12/31/22 02:28 celecoxib [From Celebrex] AdvReac Upset Verified 12/31/22 02:28 Stomach Family History Mother Cancer Father Alzheimer disease Prostate cancer Sister Lymphoma Surgical History H/O total hip arthroplasty Social History household members: spouse Smoking Status: Former smoker alcohol intake: never substance use type: does not use ROS ROS ED ROS Narrative Please note review of systems may be unreliable secondary to patient's history of dementia Constitutional Constitutional ED: Denies chills or fever(s) Eyes Eyes: Denies change in vision ENT ENT ED: Denies sore throat Cardiovascular Cardiovascular: Denies chest pain, palpitations or racing heartbeat Respiratory/Chest Respiratory/Chest: Denies cough or dyspnea Gastrointestinal Gastrointestinal: Denies abdominal pain, diarrhea, nausea or vomiting Genitourinary Genitourinary ED: Denies dysuria or hematuria Musculoskeletal Musculoskeletal: Denies back pain or myalgias Integumentary Denies rash Neurologic Neurologic: Denies headache(s) Hematologic/Lymphatic Hematologic/Lymphatic: Denies easy bleeding or easy bruising EXAM Physical Exam Const Vital Signs: 12/31/22 02:23 12/31/22 02:26 Temperature 97.6 F L Temperature Source Oral Pulse Rate 70 Respiratory Rate 18 Respiratory Effort Normal Respiratory Pattern Normal Blood Pressure 163/89 H Blood Pressure Mean 113 Pulse Ox 99 Oxygen Delivery Method Room Air Positive well nourished and well developed General Appearance ED: well developed HEENT Reports moist mucous membranes HEENT Narrative: No signs of infection in the posterior pharynx Eyes PERRL and EOMs intact bilaterally Neck supple Neck Narrative: Carotid pulses are equal and symmetric bilaterally Chest Wall palpation of chest normal Chest Narrative: No bony deformity or crepitance no pain with palpation Resp normal respiratory effort and clear to auscultation bilaterally Cardio regular rate and regular rhythm Rate: other Other Details: Radial pulses are plus 2 out of 4 bilaterally are equal and symmetric GI normal to inspection, nondistended, normoactive bowel sounds, non-tender, non-distended and no masses GI Narrative: No voluntary guarding or rigidity. No pulsatile mass or fluid wave Auscultation: normoactive bowel sounds Palpation: soft Back/Spine no CVA tenderness Extremity normal to inspection Extremity Narrative: Negative Homans' sign bilaterally Neuro CN's II-XII intact bilaterally Neuro Narrative: Patient is at his baseline mental status there are no focal neurologic deficits noted Sensorium / Orientation: alert Psych Psych Narrative: Patient has a nervous/anxious affect Skin Skin Narrative: Patient has circular erythematous excoriated lesions across his body consistent with history of psoriasis. No secondary changes to suggest infection MDM MDM MDM Narrative Medical decision making narrative: Patient presented to the ER hypertensive but has a past medical history of this and otherwise vitals are stable. Upon arrival to the ER he states the pressure sensation that he initially thought at home has spontaneously resolved. He appears nervous and anxious at rest. I discussed with patient and that there is possibility that we can check basic labs with cardiac markers secondary to the initial symptoms beginning in the lower chest region. However patient has no reports of persistent chest pain and states he is more concerned that it could be possibly his urine or his prostate. Despite this concern he does not have rectal pain or discharge or difficulty urinating. A urine sample was obtained which shows no blood or signs of infection. As he appeared nervous/anxious I did provide oral Ativan. On reevaluation he reports he feels perfect. He no longer has any sensation of pressure throughout his body. Therefore at this time as his history and physical exam do not suggest acute coronary syndrome or acute abdominal pathology or lack of blood flow or even an infectious process and he is feeling better at this time he is otherwise safe for discharge History & Record Review Discussion w/independent historian: Patient and Significant other Lab Data Attestation: I reviewed the patient's lab results. Labs: Laboratory Results - last 24 hr 12/31/22 02:57 Urine Color Yellow Urine Clarity Clear Urine pH 7.0 Ur Specific [place] 1.005 Urine Protein Negative Urine Glucose (UA) Normal Urine Ketones Negative Urine Occult Blood Negative Urine Nitrite Negative Urine Bilirubin Negative Urine Urobilinogen Normal Ur Leukocyte Esterase Negative Urine RBC 0 SEEN Urine WBC 0 SEEN Ur Squamous Epith Cells 0 SEEN Urine Bacteria 0 SEEN Urine Mucus 0 SEEN Discharge Plan Triage Chief Complaint: General Illness ED Provider: Conrado Gonzales Dx/Rx/DC Orders Clinical Impression: Anxiety, Alzheimer's dementia, Hypertension Instructions: Your Body's Response to Anxiety, Alzheimer Disease Prescriptions: New lorazepam [Ativan] 1 mg tablet 1 mg PO TID PRN (Reason: anxiety) 5 Days Qty: 15 0RF No Action donepezil 10 mg tablet 10 mg PO DAILY Label Comments: TAKE 1 TABLET BY MOUTH ONCE DAILY AT BEDTIME losartan 50 mg tablet 50 mg PO DAILY Qty: 30 1RF Primary Care Provider: Clifton Doran Referrals: Clifton Doran, PA [Primary Care Provider] - Disposition Disposition: Home, Self Care Discharge Date/Time: 12/31/22 03:58
== END 2022-12-31 03:58 | disposition home or self-care (01) ==
PROVIDERS: Emergency Provider Emergency Medicine; PCP Physician Assistant; Visit Provider Emergency Medicine
DX: F41.9 Anxiety disorder, unspecified (principal); G30.9 Alzheimer's disease, unspecified; F02.80 Dementia in other diseases classified elsewhere, unspecified severity, without behavioral disturbance, psychotic disturbance, mood disturbance, and anxiety; N18.32 Chronic kidney disease, stage 3b; I12.9 Hypertensive chronic kidney disease with stage 1 through stage 4 chronic kidney disease, or unspecified chronic kidney disease; G47.33 Obstructive sleep apnea (adult) (pediatric); Z79.899 Other long term (current) drug therapy; Z87.891 Personal history of nicotine dependence
CPT/HCPCS: 81001; 99283

== ENCOUNTER 2023-01-30 10:39 | Emergency (ER) | payer MEDICARE, SELFPAY ==
[2023-01-30] VITALS (8 sets, daily range): BP systolic 124–180; BP diastolic 76–122; PULSE 56–72; RESP 11–20; TEMP 36.4; O2SAT 91–98; BMI 26.6
--- NOTE | 2023-01-30 11:12 | EX.ED.GENINJ ---
HPI <SACHIN Fletcher - Last Filed: 01/30/23 15:04> History of Present Illness Chief Complaint: Disclocation Narrative Narrative: 67-year-old male with past medical history of Alzheimer's dementia, right hip arthroplasty presents with right hip pain and dislocation. According to his he did not fall. He was sitting on the toilet with the lid closed and called RN and said his hip popped out and he could not walk. He came in via EMS. He has previously dislocated his right hip multiple times and needed close reduction and sedation. He denies other injuries. Dr. Foley did his original surgery 2 years ago. PFSH <SACHIN Fletcher - Last Filed: 01/30/23 15:04> PFSH Medical History Allergies Alzheimer disease Arthritis History of basal cell cancer Hypertension Obstructive sleep apnea Stage 3b chronic kidney disease (CKD) Tremor Vertigo Home Medications donepezil 10 mg tablet 10 mg PO DAILY 10/26/22 [History Last Taken Unknown] losartan 50 mg tablet 50 mg PO DAILY #30 tabs 10/28/22 [Rx Last Taken Unknown] lorazepam 1 mg tablet (Ativan) 1 mg PO TID PRN anxiety 5 days #15 tabs 12/31/22 [Rx Last Taken Unknown] Allergy/AdvReac Type Severity Reaction Status Date / Time cefaclor [From Ceclor] AdvReac Nausea Verified 01/30/23 10:41 celecoxib [From Celebrex] AdvReac Upset Verified 01/30/23 10:41 Stomach Family History Mother Cancer Father Alzheimer disease Prostate cancer Sister Lymphoma Surgical History H/O total hip arthroplasty Social History household members: spouse Smoking Status: Former smoker alcohol intake: never substance use type: does not use ROS <SACHIN Fletcher - Last Filed: 01/30/23 15:04> ROS ED ROS Narrative Constitutional: Negative for fever, chills, malaise. Neuro: Negative for motor/sensory dysfunction. Skin: Negative for wound. Musc: Positive for right hip pain. No trauma. Heme: Negative for easy bruising, bleeding, lymphadenopathy. EXAM <SACHIN Fletcher - Last Filed: 01/30/23 15:04> Physical Exam Narrative Exam Narrative: CONST: Patient sitting in no acute distress. EYES: Normal inspection. NECK: Normal inspection. RESP: No respiratory distress, CTAB. CVS: Regular rate and rhythm, no murmur, no gallop. SKIN: Color normal, no rash, warm, dry, intact. EXTREMITIES: Right leg internally rotated. Tender over the greater trochanter with no obvious deformity but he will not move the hip or knee due to pain. Distal sensation and 2+ DP pulses intact. NEURO: Oriented x4. PSYCH: Normal affect. Const Vital Signs: 01/30/23 10:42 01/30/23 11:50 01/30/23 13:09 Temperature 97.5 F L Temperature Source Temporal Pulse Rate 72 63 59 L Pulse Rate [1 (Initial Baseline)] Pulse Rate [2] Pulse Rate [Procedural sedation] Respiratory Rate 16 17 11 L Respiratory Rate [1 (Initial Baseline)] Respiratory Rate [2] Respiratory Rate [Procedural sedation] Blood Pressure 180/122 H 145/105 H 130/83 H Blood Pressure [1 (Initial Baseline)] Blood Pressure [2] Blood Pressure [Procedural sedation] Blood Pressure Mean 141 98 Pulse Ox 98 94 95 Oxygen Delivery Method Room Air Room Air Nasal Cannula Oxygen Delivery Method [1 (Initial Baseline)] Oxygen Delivery Method [2] Oxygen Delivery Method [Procedural sedation] Oxygen Flow Rate (L/min) 2 Oxygen Flow Rate (L/min) [1 (Initial Baseline)] Oxygen Flow Rate (L/min) [2] Oxygen Flow Rate (L/min) [Procedural sedation] 01/30/23 13:39 01/30/23 13:40 01/30/23 13:45 Temperature Temperature Source Pulse Rate 67 56 L Pulse Rate [1 (Initial Baseline)] 60 Pulse Rate [2] 69 Pulse Rate [Procedural sedation] 68 Respiratory Rate 12 20 H Respiratory Rate [1 (Initial Baseline)] 16 Respiratory Rate [2] 14 Respiratory Rate [Procedural sedation] 14 Blood Pressure 127/99 H 130/83 H Blood Pressure [1 (Initial Baseline)] 124/81 H Blood Pressure [2] 129/85 H Blood Pressure [Procedural sedation] 139/89 H Blood Pressure Mean Pulse Ox 96 98 Oxygen Delivery Method Nasal Cannula Oxygen Delivery Method [1 (Initial Baseline)] Nasal Cannula Oxygen Delivery Method [2] Nasal Cannula Oxygen Delivery Method [Procedural sedation] Nasal Cannula Oxygen Flow Rate (L/min) 2 2 Oxygen Flow Rate (L/min) [1 (Initial Baseline)] 2 Oxygen Flow Rate (L/min) [2] 2 Oxygen Flow Rate (L/min) [Procedural sedation] 2 01/30/23 13:50 01/30/23 13:52 Temperature Temperature Source Pulse Rate 57 L Pulse Rate [1 (Initial Baseline)] Pulse Rate [2] Pulse Rate [Procedural sedation] Respiratory Rate 12 Respiratory Rate [1 (Initial Baseline)] Respiratory Rate [2] Respiratory Rate [Procedural sedation] Blood Pressure 131/76 H Blood Pressure [1 (Initial Baseline)] Blood Pressure [2] Blood Pressure [Procedural sedation] Blood Pressure Mean Pulse Ox 95 Oxygen Delivery Method Nasal Cannula Oxygen Delivery Method [1 (Initial Baseline)] Oxygen Delivery Method [2] Oxygen Delivery Method [Procedural sedation] Oxygen Flow Rate (L/min) 2 2 Oxygen Flow Rate (L/min) [1 (Initial Baseline)] Oxygen Flow Rate (L/min) [2] Oxygen Flow Rate (L/min) [Procedural sedation] <Doug Wilkinson MD - Last Filed: 01/30/23 15:09> Physical Exam Const Vital Signs: 01/30/23 10:42 01/30/23 11:50 01/30/23 13:09 Temperature 97.5 F L Temperature Source Temporal Pulse Rate 72 63 59 L Pulse Rate [1 (Initial Baseline)] Pulse Rate [2] Pulse Rate [Procedural sedation] Respiratory Rate 16 17 11 L Respiratory Rate [1 (Initial Baseline)] Respiratory Rate [2] Respiratory Rate [Procedural sedation] Blood Pressure 180/122 H 145/105 H 130/83 H Blood Pressure [1 (Initial Baseline)] Blood Pressure [2] Blood Pressure [Procedural sedation] Blood Pressure Mean 141 98 Pulse Ox 98 94 95 Oxygen Delivery Method Room Air Room Air Nasal Cannula Oxygen Delivery Method [1 (Initial Baseline)] Oxygen Delivery Method [2] Oxygen Delivery Method [Procedural sedation] Oxygen Flow Rate (L/min) 2 Oxygen Flow Rate (L/min) [1 (Initial Baseline)] Oxygen Flow Rate (L/min) [2] Oxygen Flow Rate (L/min) [Procedural sedation] 01/30/23 13:39 07/15/23 13:40 01/30/23 13:45 Temperature Temperature Source Pulse Rate 67 56 L Pulse Rate [1 (Initial Baseline)] 60 Pulse Rate [2] 69 Pulse Rate [Procedural sedation] 68 Respiratory Rate 12 20 H Respiratory Rate [1 (Initial Baseline)] 16 Respiratory Rate [2] 14 Respiratory Rate [Procedural sedation] 14 Blood Pressure 127/99 H 130/83 H Blood Pressure [1 (Initial Baseline)] 124/81 H Blood Pressure [2] 129/85 H Blood Pressure [Procedural sedation] 139/89 H Blood Pressure Mean Pulse Ox 96 98 Oxygen Delivery Method Nasal Cannula Oxygen Delivery Method [1 (Initial Baseline)] Nasal Cannula Oxygen Delivery Method [2] Nasal Cannula Oxygen Delivery Method [Procedural sedation] Nasal Cannula Oxygen Flow Rate (L/min) 2 2 Oxygen Flow Rate (L/min) [1 (Initial Baseline)] 2 Oxygen Flow Rate (L/min) [2] 2 Oxygen Flow Rate (L/min) [Procedural sedation] 2 01/30/23 13:50 01/30/23 13:52 Temperature Temperature Source Pulse Rate 57 L Pulse Rate [1 (Initial Baseline)] Pulse Rate [2] Pulse Rate [Procedural sedation] Respiratory Rate 12 Respiratory Rate [1 (Initial Baseline)] Respiratory Rate [2] Respiratory Rate [Procedural sedation] Blood Pressure 131/76 H Blood Pressure [1 (Initial Baseline)] Blood Pressure [2] Blood Pressure [Procedural sedation] Blood Pressure Mean Pulse Ox 95 Oxygen Delivery Method Nasal Cannula Oxygen Delivery Method [1 (Initial Baseline)] Oxygen Delivery Method [2] Oxygen Delivery Method [Procedural sedation] Oxygen Flow Rate (L/min) 2 2 Oxygen Flow Rate (L/min) [1 (Initial Baseline)] Oxygen Flow Rate (L/min) [2] Oxygen Flow Rate (L/min) [Procedural sedation] [facility] <SACHIN Fletcher - Last Filed: 01/30/23 15:04> [facility] Narrative Medical decision making narrative: History gathered from: Patient and Patient has atraumatic right hip dislocation. History of prosthesis and chronic dislocator. He is neurovascularly intact. Initial x-ray shows superior and lateral dislocation of the hip prosthesis. Patient needed procedural sedation for closed reduction of his right hip. He was given fentanyl for analgesia and consented for closed reduction of the hip. See procedure note. Postreduction x-rays show anatomical alignment and he is neurovascularly intact. He is placed in a knee immobilizer needs to keep this on until he sees his orthopedic doctor. Radiography Diagnostic Testing: Clinical Impression(s) from Imaging Studies Hip/Pelvis X-Ray 01/30/23 11:27 IMPRESSION: Dislocation of the right hip arthroplasty prosthesis. Electronically Signed: Wally Toledo MD at 11:49 EDT Reading Location ID and State: [id number] / [employer] , Service support , Hip X-Ray 01/30/23 13:56 IMPRESSION: Interval reduction of the right hip arthroplasty prosthesis. Electronically Signed: Wally Toledo MD at 14:52 EDT Reading Location ID and State: [id number] / [employer] , Service support , ED attending interpretation of right hip x-ray shows anterior dislocation of right hip arthroplasty. ED attending interpretation postreduction film shows anatomic alignment of right hip. <Doug Wilkinson MD - Last Filed: 01/30/23 15:09> MDM MDM Narrative Medical decision making narrative: History gathered from: Patient and Patient has atraumatic right hip dislocation. History of prosthesis and chronic dislocator. He is neurovascularly intact. Initial x-ray shows superior and lateral dislocation of the hip prosthesis. Patient needed procedural sedation for closed reduction of his right hip. He was given fentanyl for analgesia and consented for closed reduction of the hip. See procedure note. Postreduction x-rays show anatomical alignment and he is neurovascularly intact. He is placed in a knee immobilizer needs to keep this on until he sees his orthopedic doctor. I have personally performed a face to face assessment of the patient and have reviewed the DENNIS Note. I performed a substantive portion of the visit including all aspects of the following. My johnson findings include: History is total right hip arthroplasty with frequent dislocation of prosthesis. Exam is afebrile. Vital signs noted. Limited range of motion right lower extremity with tenderness to palpation right hip, positive shortening right leg. Neurovascular intact distally with palpable dorsalis pedis pulse, right. Medical Decision Making: I reviewed the patient's prior records. I have been seen by him previously and performed closed reduction on his right hip in the past. Check x-rays. Procedural sedation. Recheck x-rays. X-rays interpreted by myself initially show the dislocation of the right hip arthroplasty on initial x-ray, and on my independent interpretation of his postreduction x-ray, there has been successful reduction. I reviewed the radiology reports which confirmed my independent interpretations of his right hip x-rays both pre and postreduction. He will be placed in a knee immobilizer and told to follow-up with his orthopedic surgeon, Dr. Foley. Disposition is discharged home in improved and stable condition. Other additions or changes: [None] Radiography Diagnostic Testing: Clinical Impression(s) from Imaging Studies Hip/Pelvis X-Ray 01/30/23 11:27 IMPRESSION: Dislocation of the right hip arthroplasty prosthesis. Electronically Signed: Wally Toledo MD at 11:49 EDT , Hip X-Ray 01/30/23 13:56 IMPRESSION: Interval reduction of the right hip arthroplasty prosthesis. Electronically Signed: Wally Toledo MD at 14:52 EDT , Discharge Plan Triage Chief Complaint: Disclocation ED Midlevel Provider: Roxanna Banks ED Provider: Doug Wilkinson Dx/Rx/DC Orders Clinical Impression: Dislocation of internal right hip prosthesis Instructions: ED Hip Replace Dislocation Reduc Prescriptions: No Action donepezil 10 mg tablet 10 mg PO DAILY Patient Comments: TAKE 1 TABLET BY MOUTH ONCE DAILY AT BEDTIME losartan 50 mg tablet 50 mg PO DAILY Qty: 30 1RF lorazepam [Ativan] 1 mg tablet 1 mg PO TID PRN (Reason: anxiety) 5 Days Qty: 15 0RF Primary Care Provider: Clifton Doran Referrals: Jose A Foley MD [Non-Staff] - Clifton Doran PA [Primary Care Provider] - Activity Restrictions/Additional Instructions: Keep the knee immobilizer on until you see the orthopedic doctor. Disposition Disposition: Home, Self Care
--- NOTE | 2023-01-30 11:27 | RAD_ITS ---
STUDY: X-RAY - PELVIS AND RIGHT HIP REASON FOR EXAM: Male, 67 years old. pain TECHNIQUE: 3 views of the pelvis and hip. COMPARISON: 11/05/2022 FINDINGS: There is a non-specific bowel gas pattern. Normal visualized soft tissue structures. Normal bilateral iliac wings, sacroiliac joints and visualized sacrum. Normal bilateral superior and inferior pubic rami. Normal pubic symphysis. Normal bilateral ischial tuberosities. Status post right hip arthroplasty. Superior dislocation of the prosthesis. . RAD/HIP, UNI W/ Pelvis 2-3 Views IMPRESSION: Dislocation of the right hip arthroplasty prosthesis. Electronically Signed: Wally Toledo MD at 11:49 EDT ,
[2023-01-30] MEDS: Ondansetron 4 MG/2 ML Vial IV (12:00)
[2023-01-30] MEDS: fentaNYL 100 MCG/2 ML Ampul 50 MCG IV (12:00)
[2023-01-30] MEDS: Propofol 200 MG/20 ML Vial IV BOLUS (13:40)
--- NOTE | 2023-01-30 13:56 | RAD_ITS ---
STUDY: X-RAY - PELVIS AND RIGHT HIP REASON FOR EXAM: Male, 67 years old. reduction TECHNIQUE: 2 views of the pelvis and hip. COMPARISON: 01/31/2020 09/26/2026 FINDINGS: There is a non-specific bowel gas pattern. Normal visualized soft tissue structures. Normal bilateral iliac wings, sacroiliac joints and visualized sacrum. Normal bilateral superior and inferior pubic rami. Normal pubic symphysis. Normal bilateral ischial tuberosities. Status post right hip arthroplasty. Interval reduction of the prosthesis.. RAD/Hip Min 2 Views (Portable) IMPRESSION: Interval reduction of the right hip arthroplasty prosthesis. Electronically Signed: Wally Toledo MD at 14:52 EDT ,
== END 2023-01-30 15:18 | disposition home or self-care (01) ==
PROVIDERS: Emergency Provider Emergency Medicine; PCP Physician Assistant; Visit Provider Emergency Medicine
DX: T84.020A Dislocation of internal right hip prosthesis, initial encounter (principal); G30.9 Alzheimer's disease, unspecified; N18.32 Chronic kidney disease, stage 3b; X58.XXXA Exposure to other specified factors, initial encounter; I12.9 Hypertensive chronic kidney disease with stage 1 through stage 4 chronic kidney disease, or unspecified chronic kidney disease; G47.33 Obstructive sleep apnea (adult) (pediatric); Z79.899 Other long term (current) drug therapy; Z87.891 Personal history of nicotine dependence; Z96.641 Presence of right artificial hip joint
CPT/HCPCS: 27265; 73502; 96374; 96375; 99285; J7030; A4216; J2405

== ENCOUNTER 2023-03-12 14:35 | Inpatient (IN) | payer MEDICARE, SELFPAY ==
[2023-03-12 14:47] VITALS: BP 136/79; PULSE 78; RESP 18; TEMP 36.1; O2SAT 98; BMI 27.1
[2023-03-12 16:00] VITALS: BP 118/82; PULSE 80; RESP 18; TEMP 36.3; O2SAT 100
[2023-03-12] MEDS: Ascorbic Acid 500 MG Tablet PO (17:56)
[2023-03-12] MEDS: Aspirin E.C. 81 MG Tablet PO (17:56)
[2023-03-12] MEDS: Memantine Hydrochloride 5 MG Tablet PO (17:56)
[2023-03-12] MEDS: Doxycycline 100 MG CAPSULE PO (17:56)
--- NOTE | 2023-03-12 18:10 | HP.PCM_ITS ---
HPI - General General Date of Admission: 03/12/23 Date of Service: 03/13/23 Chief Complaint: Here for rehabilitation. HPI Narrative 01/30/2023 LARISA ROCK, is a 67 Male who presents to [facility] Emergency Department with right hip dislocation. No fall, sitting on toilet, hip popped out, could not walk. Dislocated right hip multiple times, required sedation, closed reduction. Fentanyl given, right hip reduced, post X-rays showed good alignment. Right knee immobilizer. Discharged home. 03/10/2023 Admit to [facility]. 03/10/2023 Dr. Campuzano performed revision right total hip arthroplasty due to chronic recurrent dislocation. Postoperatively, given antiemetics, antibiotics, aspirin twice daily for DVT prophylaxis. Right hip incision clean, dry, intact. No right thigh, right lower extremity swelling noted. PT/OT for SNF. 03/11/2023 Valium for muscle spasms. Miralax, Colace for bowel regimen. Tylenol, Oxycodone for pain control. Doxycycline for infection prophylaxis after surgery. 03/12/2023 Admit to TCU with debility, here for rehabilitation, strengthening, prior to discharge home with . [facility] Medical History (Updated 03/12/23 @ 18:[address] Bridger Santos MD) Allergies Alzheimer disease Arthritis History of basal cell cancer History of revision of total replacement of right hip joint Hypertension Obstructive sleep apnea Stage 3b chronic kidney disease (CKD) Tremor Vertigo Home Medications donepezil 10 mg tablet 10 mg PO DAILY Memory 10/26/22 [History Last Taken Unknown] losartan 50 mg tablet 50 mg PO DAILY #30 tabs 10/28/22 [Rx Last Taken Unknown] lorazepam 1 mg tablet (Ativan) 1 mg PO TID PRN anxiety 5 days #15 tabs 12/31/22 [Rx Last Taken Unknown] acetaminophen 500 mg capsule 500 mg PO Q8H PRN PRN pain 03/12/23 [History Last Taken 03/12/23 06:00] ascorbic acid (vitamin C) 500 mg capsule 500 mg PO BID Supplement 03/12/23 [History Last Taken 03/12/23 08:00] aspirin 81 mg tablet,delayed release (Enteric Coated Aspirin) 81 mg PO BID DVT Prophylaxis 03/12/23 [History Last Taken 03/12/23 08:30] docusate sodium 100 mg capsule (Col-Rite) 100 mg PO BID PRN Constipation 03/12/23 [History Last Taken 03/12/23 08:25] doxycycline hyclate 100 mg capsule 100 mg PO Q12H Antibiotic 03/12/23 [History Last Taken 03/12/23 06:05] lisinopril 10 mg tablet 10 mg PO DAILY BP 03/12/23 [History Last Taken 03/12/23 08:25] memantine 5 mg tablet 5 mg PO BID MEMORY 03/12/23 [History Last Taken 03/12/23 08:25] oxycodone 5 mg tablet 5 - 10 mg PO Q6H PRN pain 03/12/23 [History Last Taken 03/11/23] polyethylene glycol 3350 17 gram oral powder packet (ClearLax) 17 g PO DAILY PRN constipation 03/12/23 [History Last Taken 03/12/23 08:35] Allergy/AdvReac Type Severity Reaction Status Date / Time cefaclor [From Ceclor] AdvReac Nausea Verified 01/30/23 10:41 celecoxib [From Celebrex] AdvReac Upset Verified 01/30/23 10:41 Stomach Family History Mother Cancer Father Alzheimer disease Prostate cancer Sister Lymphoma Surgical History H/O total hip arthroplasty Social History household members: spouse Smoking Status: Former smoker alcohol intake: never substance use type: does not use ROS Constitutional Constitutional: Denies chills, fever(s) or weight gain ENT HEENT: Denies headache(s), nasal congestion or nasal discharge Cardiovascular Cardiovascular: Denies chest pain or palpitations Respiratory/Chest Respiratory/Chest: Denies cough, excessive phlegm production or shortness of breath with exertion Gastrointestinal Gastrointestinal: Denies abdominal pain, nausea or vomiting Genitourinary Genitourinary: Denies dysuria Musculoskeletal Musculoskeletal: Denies joint pain or joint swelling Integumentary Integumentary: Denies rash or wounds Neurologic Neurologic: Denies focal weakness, numbness or tingling Psychiatric Psychiatric: Denies anxiety, auditory hallucinations, depression, homicidal ideation or suicidal ideation Vital Signs Vital Signs Vital Signs: 03/12/23 14:47 03/12/23 14:47 03/12/23 16:00 Temperature 97 F L 97.3 F L Temperature Source Temporal Temporal Pulse Rate 78 80 Pulse Rhythm Regular Pulse Strength Normal (2+) Respiratory Rate 18 18 18 Respiratory Effort Normal Non-Labored Respiratory Depth Normal Respiratory Pattern Normal Blood Pressure 136/79 H 118/82 H Blood Pressure Mean 98 94 Blood Pressure Source Monitor Monitor Blood Pressure Position Sitting Sitting Blood Pressure Location Right Forearm Right Forearm Pulse Ox 98 98 100 Oxygen Delivery Method Room Air Room Air Room Air Weight Weight: 93.123 kg Body Mass Index (BMI) 27.1 Physical Exam Const alert General Appearance: cooperative HEENT normocephalic Eyes PERRL and EOMs intact bilaterally Neck supple, no JVD and no carotid bruits Resp normal respiratory effort, normal air movement and clear to auscultation bilaterally Cardio regular rate and regular rhythm GI normal to inspection, nondistended, normoactive bowel sounds, non-tender and non-distended Extremity normal capillary refill General Extremity: Negative for edema Skin no rashes or lesions noted General Skin Exam: no breakdown Psych affect normal Appearance: appropriate Results Lab / Micro Data 03/13/23 06:25 03/13/23 06:25 Assessment & Plan Assessment/Plan (1) Debility: (2) History of revision of total replacement of right hip joint: (3) Hypertension: (4) Iron deficiency anemia: (5) Allergic rhinitis: (6) Benign prostate hyperplasia: (7) Psoriasis: PLAN: Plan 67 year old male with below past medical history significant for chronic recurr ent dislocation right total hip arthroplasty, hospitalized for revision right total hip arthoplasty 03/10/2023, admitted to TCU with debility, here for rehabilitation, strengthening, prior to discharge home with . * Debility - PT/OT. * Cognition - ST. * Pain - Tylenol 1000mg q8, Oxycodone 5mg q4h prn pain (4-10). * Bowel - Miralax 17gm daily, senna/colace 2 tablets bid, Magnesium citrate 300ml po daily prn, * Adult immunization - Administer pneumonia vaccine, covid19 vaccine, flu vaccine as appropriate. * DVT prophylaxis - Aspirin 81mg bid. * Vitamin C deficiency - Vitamin C 500mg bid thru 03/25/2023. * Alzheimer Disease - Donepezil 10mg qhs, Memantine 5mg bid. * Infectious Disease - Doxycycline 100mg q12h thru 04/22/2023, culture data unavailable. * Hypertension - Lisinopril 10mg daily.
[2023-03-12] MEDS: oxyCODONE 5 MG Tablet PO (21:45)
[2023-03-12] MEDS: Acetaminophen 500 MG Tablet 1000 MG PO (21:45)
[2023-03-12] MEDS: Senna/Docusate Sodium 1 Tablet 2 TABLET PO (21:45)
[2023-03-12] MEDS: Donepezil HCl 10 MG Tablet PO (21:46)
[2023-03-13] MEDS: oxyCODONE 5 MG Tablet PO (04:25)
[2023-03-13] MEDS: Senna/Docusate Sodium 1 Tablet 2 TABLET PO ×2 (04:27→16:57)
[2023-03-13] MEDS: Lisinopril 10 MG Tablet PO (04:27)
[2023-03-13] MEDS: Ascorbic Acid 500 MG Tablet PO ×2 (04:27→16:58)
[2023-03-13] MEDS: Doxycycline 100 MG CAPSULE PO ×2 (04:27→16:57)
[2023-03-13] MEDS: Polyethylene Glycol 3350 17 GM PACKET PO (04:28)
[2023-03-13] MEDS: Memantine Hydrochloride 5 MG Tablet PO ×2 (04:28→16:58)
[2023-03-13] MEDS: Acetaminophen 500 MG Tablet 1000 MG PO ×3 (04:28→23:40)
[2023-03-13 04:38] VITALS: BP 150/88; PULSE 90
[2023-03-13 07:08] LABS: Absolute Lymphocyte Count 1.92 X10^3/uL (0.83-4.51); Absolute Neutrophil Count 4.7 X10^3/uL (2.0-7.7); Basophil# 0.03 X10^3/uL; Basophil% 0.4 % (0-1); Eosinophil# 0.15 X10^3/uL; Eosinophils% 1.9 % (0-5); Hematocrit 38.7 % (40-54); Hemoglobin 12.6 g/dL (13.0-16.5); Lymphocyte # 1.92 X10^3/ul (0.83-4.51); Lymphocyte % 24.9 % (19-41); Mean Corp Hgb Conc 32.6 g/dL (32-36); Mean Corpuscular Hgb 30.2 pg (27.0-32.0); Mean Corpuscular Volume 92.8 fL (80-94); Mean Platelet Vol. 9.8 fl (6.2-12.0); Monocyte# 0.83 X10^3/uL; Monocyte% 10.8 % (0-10); NRBC Flagged by Analyzer 0 % (0-5); Neutrophil # 4.71 X10^3/uL (2.7-7.7); Neutrophil % 61.1 % (47-70); Platelet Count 394 K/mm3 (150-450); RBC Distribution Width CV 13.9 % (11.6-14.6); RBC Distribution Width SD 47.4 fl (35.1-43.9); Red Blood Count 4.17 M/mm3 (4.6-6.2); White Blood Count 7.7 K/mm3 (4.4-11.0)
[2023-03-13 07:55] LABS: Anion Gap 5 (5-15); BUN 19 mg/dL (7-18); BUN/Creat Ratio 15.6 RATIO (10-20); Calcium,Total 8.3 mg/dL (8.5-10.1); Chloride 109 mmol/L (98-107); Creatinine, Serum 1.22 mg/dL (0.70-1.30); EST Glomerular Filtration Rate 63 mL/min (>60); Est Glom Filt Rate - Afr Amer 76 mL/min (>60); Estimated Creatinine Clearance 64.58 ml/min; Glucose 91 mg/dL (74-106); Potassium 3.5 mmol/L (3.5-5.1); Sodium Level 138 mmol/L (136-145)
[2023-03-13] MEDS: Aspirin E.C. 81 MG Tablet PO ×2 (09:17→16:57)
[2023-03-13] MEDS: Tuberculin,Purif.prot.deriv. 50 TU/ML Vial 0.1 ML ID (10:33)
[2023-03-13 16:00] VITALS: BP 133/89; PULSE 79; RESP 16; TEMP 36.7; O2SAT 97
[2023-03-13 18:06] VITALS: PULSE 106; RESP 16; O2SAT 92
[2023-03-13] MEDS: Donepezil HCl 10 MG Tablet PO (23:40)
[2023-03-14] MEDS: Polyethylene Glycol 3350 17 GM PACKET PO (05:38)
[2023-03-14] MEDS: Senna/Docusate Sodium 1 Tablet 2 TABLET PO ×2 (05:39→17:22)
[2023-03-14] MEDS: Doxycycline 100 MG CAPSULE PO ×2 (05:39→17:22)
[2023-03-14] MEDS: Acetaminophen 500 MG Tablet 1000 MG PO ×3 (05:39→20:36)
[2023-03-14] MEDS: Memantine Hydrochloride 5 MG Tablet PO ×2 (05:39→17:22)
[2023-03-14] MEDS: Ascorbic Acid 500 MG Tablet PO ×2 (05:40→17:22)
[2023-03-14] MEDS: Lisinopril 10 MG Tablet PO (05:40)
[2023-03-14 05:45] VITALS: BP 137/84; PULSE 88
[2023-03-14] MEDS: Aspirin E.C. 81 MG Tablet PO ×2 (08:14→17:23)
[2023-03-14 10:36] VITALS: PULSE 106; RESP 16; O2SAT 98
[2023-03-14 16:00] VITALS: BP 136/86; PULSE 84; RESP 18; TEMP 36.6; O2SAT 99
[2023-03-14] MEDS: oxyCODONE 5 MG Tablet PO (17:22)
[2023-03-14] MEDS: Donepezil HCl 10 MG Tablet PO (20:36)
[2023-03-15] MEDS: oxyCODONE 5 MG Tablet PO ×3 (04:15→21:29)
[2023-03-15] MEDS: Lisinopril 10 MG Tablet PO (05:37)
[2023-03-15] MEDS: Doxycycline 100 MG CAPSULE PO ×2 (05:37→21:11)
[2023-03-15] MEDS: Memantine Hydrochloride 5 MG Tablet PO ×2 (05:37→21:11)
[2023-03-15] MEDS: Senna/Docusate Sodium 1 Tablet 2 TABLET PO ×2 (05:37→21:11)
[2023-03-15] MEDS: Acetaminophen 500 MG Tablet 1000 MG PO ×3 (05:37→21:10)
[2023-03-15] MEDS: Ascorbic Acid 500 MG Tablet PO ×2 (05:38→21:10)
[2023-03-15] MEDS: Polyethylene Glycol 3350 17 GM PACKET PO (05:38)
--- NOTE | 2023-03-15 06:46 | NURSING ---
Pt on and off anxious through out shift. Had pain this AC. multiple attempts to self transfer throughout night. PRN medication given seems effective for pain but pt has increased agitation this morning.
[2023-03-15] MEDS: Aspirin E.C. 81 MG Tablet PO ×2 (07:45→17:37)
[2023-03-15 09:42] VITALS: BP 97/61; PULSE 88; RESP 17; TEMP 36.6; O2SAT 97
[2023-03-15 10:58] LABS: Mucous, Urine 0 SEEN /hpf (<or=2+); Red Blood Cells-Urine 0 SEEN /hpf (0-5)
[2023-03-15 11:03] LABS: Color, Urine Yellow (Yellow); Glucose, Dipstick Normal (Normal); Ketone-Dipstick 5 mg/dl (Negative); Leukocyte Esterase-Dipstick 25 /ul (Negative); Nitrite-Dipstick Negative (Negative); Occult Blood-Urine Negative /ul (Negative); Protein-Dipstick 15 mg/dl (Negative); Urine Bilirubin Dipstick Negative (Negative); Urine Clarity Clear (Clear); Urine Urobilinogen 1 mg/dl (Normal)
--- NOTE | 2023-03-15 11:31 | NURSING ---
Asparagus Buncher Note; Activity Asset Complete Manpreet is independent in his choice of daily activities. He stated he enjoys word puzzles, other puzzles, watching tv and reading all kinds of books. He welcomes visit from the cardiac nurse specialist and therapy dog when available. Staff will continue to remind him of daily activities and respect his right to say no. Family will visit daily and bring him items he may need as well.
[2023-03-15 11:37] LABS: Bacteria RARE /hpf (None Seen); Squamous Epithelial Cells - UA 0-5 SEEN /hpf (0-5); White Blood Cells 0-5 SEEN /hpf (0-5)
--- NOTE | 2023-03-15 12:41 | NURSING ---
Offered Covid booster, education about vaccine provided. Patient refuses at this time.
[2023-03-15] MEDS: LORazepam 0.5 MG Tablet PO (14:21)
--- NOTE | 2023-03-15 14:43 | CASEMGMT ---
Social Work Met with patient to complete initial assessment. Introduced self and role, however, pt known to this worker from previous stay. Discussed code status. Pt was unable to comprehend the question. Did not revisit the MOLST. Pt's goal is to return home with assistance. SW will continue to follow for DC planning. Laury Llamas ,KAMILA RUSTW
[2023-03-15] MEDS: Donepezil HCl 10 MG Tablet PO (21:11)
[2023-03-16] MEDS: LORazepam 0.5 MG Tablet PO ×2 (01:04→23:30)
[2023-03-16] MEDS: Acetaminophen 500 MG Tablet 1000 MG PO ×3 (05:43→20:00)
[2023-03-16] MEDS: Aspirin E.C. 81 MG Tablet PO ×2 (09:21→18:32)
[2023-03-16] MEDS: Doxycycline 100 MG CAPSULE PO ×2 (09:21→20:01)
[2023-03-16] MEDS: Polyethylene Glycol 3350 17 GM PACKET PO (09:22)
[2023-03-16] MEDS: Senna/Docusate Sodium 1 Tablet 2 TABLET PO ×2 (09:22→20:01)
[2023-03-16] MEDS: Memantine Hydrochloride 5 MG Tablet PO ×2 (09:22→20:00)
[2023-03-16] MEDS: Ascorbic Acid 500 MG Tablet PO ×2 (09:22→20:01)
[2023-03-16 09:26] VITALS: BP 96/50; PULSE 98
[2023-03-16 15:29] VITALS: BMI 27.1
[2023-03-16 16:00] VITALS: BP 125/85; PULSE 119; RESP 18; TEMP 36.4; O2SAT 97
[2023-03-16 16:52] VITALS: BP 95/52; PULSE 71
[2023-03-16] MEDS: Donepezil HCl 10 MG Tablet PO (20:00)
[2023-03-16] MEDS: oxyCODONE 5 MG Tablet PO (22:12)
[2023-03-17] MEDS: Acetaminophen 500 MG Tablet 1000 MG PO ×3 (06:17→21:19)
[2023-03-17 07:03] VITALS: O2SAT 95
[2023-03-17] MEDS: Polyethylene Glycol 3350 17 GM PACKET PO (09:36)
[2023-03-17] MEDS: Lisinopril 10 MG Tablet PO (09:36)
[2023-03-17] MEDS: Doxycycline 100 MG CAPSULE PO ×2 (09:37→21:20)
[2023-03-17] MEDS: Senna/Docusate Sodium 1 Tablet 2 TABLET PO ×2 (09:37→21:19)
[2023-03-17] MEDS: Aspirin E.C. 81 MG Tablet PO ×2 (09:37→17:25)
[2023-03-17] MEDS: Memantine Hydrochloride 5 MG Tablet PO ×2 (09:37→21:19)
[2023-03-17] MEDS: Ascorbic Acid 500 MG Tablet PO ×2 (09:38→21:20)
[2023-03-17 09:56] VITALS: BP 123/86; PULSE 88
--- NOTE | 2023-03-17 10:24 | CASEMGMT ---
Social Work IDT met with patient and for care plan meeting. Discussed patient's progress in PT/OT/ST. Educated to [facility] insurance with NRD 03/24, EDC 03/27. Recommending 08/02 care. states she works 2-3 days/wk, but 2 days are from home. The other day, the pt goes to dtr's house. was also looking into [place]. states even while she is home, there is a dtr at the house to assist. [facility] [place]. SW will coordinate at [place]. KAMILA Fallon
--- NOTE | 2023-03-17 13:07 | PHA.CONS_ITS ---
TCU RX Drug Regimen Review Subjective/Objective Subjective/Objective: Subjective: PRESLEY is a 67 YOM admitted to TCU on 03/12 after undergoing a right hip arthroplasty on 03/10 due to chronic recurrent dislocation. He is here for rehabilitation and strengthening prior to discharge home with his .? Objective: Allergies cefaclor [From Ceclor] Adverse Reaction (Verified 01/30/23 10:41) Nausea celecoxib [From Celebrex] Adverse Reaction (Verified 01/30/23 10:41) Upset Stomach Current Medications Generic Name Dose Route Start Last Admin Trade Name Freq PRN Reason Stop Dose Admin Acetaminophen 1,000 mg 03/12/23 22:00 03/17/23 06:17 Acetaminophen 500 Mg Tablet PO 1,000 mg Q8 [place] Administration Ascorbic Acid 500 mg 03/15/23 22:00 03/17/23 09:38 Ascorbic Acid 500 Mg Tablet PO 03/25/23 22:01 500 mg BID [place] Administration Aspirin 81 mg 03/12/23 17:00 03/17/23 09:37 Aspirin E.C. 81 Mg Tablet PO 81 mg BIDCM [place] Administration Donepezil HCl 10 mg 03/12/23 22:00 03/16/23 20:00 Donepezil Hcl 10 Mg Tablet PO 10 mg QHS [place] Administration Doxycycline Monohydrate 100 mg 03/15/23 22:00 03/17/23 09:37 Doxycycline 100 Mg Capsule PO 04/22/23 22:01 100 mg Q12@1000,2200 [place] Administration Sodium Chloride 250 mls @ 15 mls/hr 03/12/23 15:07 IV .[id number] PRN Additional IVPB Infusion Sodium Chloride 250 mls @ 15 mls/hr 03/12/23 15:07 IV .[id number] PRN Saline Flush L-Arginine/L-Glutamine/Calcium HMB 1 packet 03/17/23 17:00 Ricardo (Unflavored) Packet PO BIDCM [place] Lisinopril 10 mg 03/16/23 10:00 03/17/23 09:36 Lisinopril 10 Mg Tablet PO 10 mg DAILY [place] Administration Lorazepam 0.5 mg 03/15/23 07:56 03/16/23 23:30 Lorazepam 0.5 Mg Tablet PO 0.5 mg Q6H PRN PRN Administration ANXIETY/RESTLESSNESS/SLEEP Magnesium Citrate 300 ml 03/12/23 18:39 Magnesium Citrate 300 Ml PO DAILY PRN Constipation Memantine 5 mg 03/15/23 22:00 03/17/23 09:37 Memantine Hydrochloride 5 Mg Tablet PO 5 mg BID [place] Administration Oxycodone HCl 5 mg 03/12/23 18:41 03/16/23 22:12 Oxycodone 5 Mg Tablet PO 5 mg Q4H PRN PRN Administration Pain Score 4-10 Polyethylene Glycol 17 gm 03/16/23 10:00 03/17/23 09:36 Polyethylene Glycol 3350 17 Gm Packet PO 17 gm DAILY [place] Administration Senna/Docusate Sodium 2 tablet 03/15/23 22:00 03/17/23 09:37 Senna/Docusate Sodium 1 Tablet PO 2 tablet BID [place] Administration Sodium Chloride 10 - 40 ml 03/12/23 15:07 0.9% Saline Lock 10 Ml Syringe IV UD PRN SALINE FLUSH Tuberculin PPD 0.1 ml 03/20/23 10:00 Tuberculin,Purif.Prot.Deriv. 50 Tu/Ml Vial ID 03/20/23 10:01 X1 ONE Problem List (Updated 03/12/23 @ 18:[address] Bridger Santos MD) Allergic rhinitis (Acute) Iron deficiency anemia (Acute) Hypertension (Chronic) History of revision of total replacement of right hip joint (Acute) Debility (Acute) Vital Signs Temp Pulse Resp BP Pulse Ox O2 Del Method 97.5 F L 88 18 123/86 H 95 Room Air 03/16/23 16:00 03/17/23 09:56 03/16/23 16:00 03/17/23 09:56 03/17/23 07:03 03/17/23 07:03 Oxygen Delivery Method Room Air Weight: 92.669 kg Body Mass Index (BMI) 27.1 Sodium 138 mmol/L (136-145) 03/13/23 06:25 Potassium 3.5 mmol/L (3.5-5.1) 03/13/23 06:25 Chloride 109 mmol/L (98-107) H 03/13/23 06:25 Carbon Dioxide 24.0 mmol/L (21.0-32.0) 03/13/23 06:25 Anion Gap 5 (5-15) 03/13/23 06:25 BUN 19 mg/dL (7-18) H 03/13/23 06:25 Creatinine 1.22 mg/dL (0.70-1.30) 03/13/23 06:25 Est GFR (MDRD) Af Amer 76 mL/min (>60) 03/13/23 06:25 Est GFR (MDRD) Non-Af 63 mL/min (>60) 03/13/23 06:25 BUN/Creatinine Ratio 15.6 RATIO (10-20) 03/13/23 06:25 Glucose 91 mg/dL (74-106) 03/13/23 06:25 Assessment/Plan: 1. Pain- Tylenol 1,000 mg po q8h and oxycodone 5 mg po q4h prn for pain (4-10). The resident used 3 prn doses of oxycodone yesterday, 03/16 for pain 6-02/25 for hip pain. Continue to monitor for s/s of pain and prn usage of oxycodone.?? 2. Bowel- Miralax 17 g po daily, senna/docusate 2 tablets po bid, magnesium citrate 300 mL po daily prn for constipation. The resident has not received any prn doses of magnesium citrate. He does not have a BM on record and has been in TCU since 03/12/23.? 3. DVT prophylaxis- Aspirin 81 mg po bid. Continue to monitor for GI effects and s/s of bleeding.?? 4. Vitamin C deficiency- Vitamin C 500 mg po bid through 03/25/23.? 5. Alzheimer?s Disease- Donepezil 10 mg po qhs and memantine 5 mg po bid. Continue to monitor neurological function, weight (93 kg), and for TRANSPORTATION AID effects such as confusion, dizziness, and headache.?? 6. Infectious disease- doxycycline 100 mg po q12h through 04/22/2023. Continue to monitor LFTS (AST 16 U/L, ALT 17 U/L, and ALP 63 U/L on 10/27/22), hydration, and for diarrhea.? 7. Hypertension- Lisinopril 10 mg po daily. Continue to monitor BP (96/50 mmHg), serum potassium and sodium (3.5 mmol/L and 138 mmol/L), and renal function (SCr 1.22 mg/dL and BUN 19 mg/dL).? Assessment/Plan for indications treated with psychotropic medications: 8. Anxiety- Lorazepam 0.5 mg po q6h prn for anxiety/restlessness/sleep. The resident has used 2 total prn doses of this medication (03/15 and 03/16). Continue to monitor for respiratory depression, especially while also taking oxycodone (Black Box Warning) and cognitive impairment (Beer?s Criteria). Please consider a GDR if clinically appropriate.? Medical chart and medication regimen reviewed. The following medication irregularities or issues were identified: No medication issues were identified at time of medication list review Date Date of Note:: 03/17/23
[2023-03-17 14:19] VITALS: PULSE 90; RESP 18; O2SAT 100
[2023-03-17] MEDS: oxyCODONE 5 MG Tablet PO (14:50)
[2023-03-17 16:00] VITALS: BP 110/72; PULSE 89; RESP 16; TEMP 36.5; O2SAT 100
[2023-03-17] MEDS: Juven (unflavored) Packet 1 PACKET PO (17:25)
[2023-03-17] MEDS: Donepezil HCl 10 MG Tablet PO (21:20)
[2023-03-17] MEDS: LORazepam 0.5 MG Tablet PO (23:57)
[2023-03-18] MEDS: Acetaminophen 500 MG Tablet 1000 MG PO ×3 (05:11→21:38)
[2023-03-18] MEDS: Polyethylene Glycol 3350 17 GM PACKET PO (08:37)
[2023-03-18] MEDS: Juven (unflavored) Packet 1 PACKET PO ×2 (08:37→18:20)
[2023-03-18] MEDS: Ascorbic Acid 500 MG Tablet PO ×2 (08:38→21:39)
[2023-03-18] MEDS: Senna/Docusate Sodium 1 Tablet 2 TABLET PO ×2 (08:38→21:39)
[2023-03-18] MEDS: Aspirin E.C. 81 MG Tablet PO ×2 (08:38→18:20)
[2023-03-18] MEDS: Doxycycline 100 MG CAPSULE PO ×2 (08:38→21:39)
[2023-03-18] MEDS: Lisinopril 10 MG Tablet PO (08:38)
[2023-03-18] MEDS: Memantine Hydrochloride 5 MG Tablet PO ×2 (08:38→21:39)
[2023-03-18 08:46] VITALS: BP 130/77; PULSE 83
[2023-03-18 08:51] VITALS: PULSE 54; RESP 16
--- NOTE | 2023-03-18 10:01 | MDS.RN ---
Pain interview for mds completed.
[2023-03-18 14:33] VITALS: TEMP 36.4; O2SAT 94
--- NOTE | 2023-03-18 16:45 | CASEMGMT ---
Social Work BIMS (09/30) and PHQ-9 (09/14) completed for MDS assessment. Laury Llamas MSW BOILER/CHILLER OPERATOR
[2023-03-18] MEDS: LORazepam 0.5 MG Tablet PO (21:38)
[2023-03-18] MEDS: Donepezil HCl 10 MG Tablet PO (21:39)
[2023-03-19] MEDS: Acetaminophen 500 MG Tablet 1000 MG PO ×3 (05:26→21:49)
--- NOTE | 2023-03-19 05:42 | NURSING ---
Redness/warmth/non-pitting edema/no drainage observed to right foot. Written communication left for regarding findings.
[2023-03-19 05:44] VITALS: PULSE 81; RESP 14; O2SAT 98
[2023-03-19 07:55] VITALS: O2SAT 92
[2023-03-19] MEDS: Juven (unflavored) Packet 1 PACKET PO ×2 (08:03→17:34)
[2023-03-19] MEDS: Doxycycline 100 MG CAPSULE PO ×2 (08:03→21:50)
[2023-03-19] MEDS: Aspirin E.C. 81 MG Tablet PO ×2 (08:03→17:34)
[2023-03-19] MEDS: Senna/Docusate Sodium 1 Tablet 2 TABLET PO ×2 (08:04→21:50)
[2023-03-19] MEDS: Memantine Hydrochloride 5 MG Tablet PO ×2 (08:04→21:49)
[2023-03-19] MEDS: Lisinopril 10 MG Tablet PO (08:04)
[2023-03-19] MEDS: Ascorbic Acid 500 MG Tablet PO ×2 (08:04→21:49)
[2023-03-19] MEDS: Polyethylene Glycol 3350 17 GM PACKET PO (08:04)
--- NOTE | 2023-03-19 08:54 | NURSING ---
Svp Marketing Note; MDS Complete
[2023-03-19] MEDS: LORazepam 0.5 MG Tablet PO (10:11)
[2023-03-19] MEDS: oxyCODONE 5 MG Tablet PO ×2 (10:12→22:01)
[2023-03-19 14:35] LABS: Bedside Glucose 88 mg/dL (74-106)
[2023-03-19 15:52] VITALS: BP 105/59; PULSE 78; RESP 18; TEMP 36.3; O2SAT 97
[2023-03-19] MEDS: Donepezil HCl 10 MG Tablet PO (21:50)
[2023-03-20] MEDS: LORazepam 0.5 MG Tablet PO ×2 (00:18→20:17)
[2023-03-20] MEDS: oxyCODONE 5 MG Tablet PO ×3 (02:47→20:17)
[2023-03-20] MEDS: Acetaminophen 500 MG Tablet 1000 MG PO ×3 (05:11→20:19)
[2023-03-20 05:16] VITALS: PULSE 78; RESP 16; O2SAT 98
[2023-03-20 06:59] LABS: Absolute Lymphocyte Count 2.45 X10^3/uL (0.83-4.51); Absolute Neutrophil Count 5.3 X10^3/uL (2.0-7.7); Basophil# 0.05 X10^3/uL; Basophil% 0.6 % (0-1); Eosinophil# 0.25 X10^3/uL; Eosinophils% 2.8 % (0-5); Hematocrit 40.2 % (40-54); Hemoglobin 13.2 g/dL (13.0-16.5); Lymphocyte # 2.45 X10^3/ul (0.83-4.51); Lymphocyte % 27.4 % (19-41); Mean Corp Hgb Conc 32.8 g/dL (32-36); Mean Corpuscular Hgb 30.6 pg (27.0-32.0); Mean Corpuscular Volume 93.1 fL (80-94); Mean Platelet Vol. 9.5 fl (6.2-12.0); Monocyte# 0.84 X10^3/uL; Monocyte% 9.4 % (0-10); NRBC Flagged by Analyzer 0 % (0-5); Neutrophil # 5.26 X10^3/uL (2.7-7.7); Neutrophil % 58.8 % (47-70); Platelet Count 598 K/mm3 (150-450); Red Blood Count 4.32 M/mm3 (4.6-6.2); White Blood Count 8.9 K/mm3 (4.4-11.0)
[2023-03-20 07:25] LABS: Anion Gap 7 (5-15); BUN 47 mg/dL (7-18); BUN/Creat Ratio 35.3 RATIO (10-20); Calcium,Total 8.8 mg/dL (8.5-10.1); Chloride 108 mmol/L (98-107); Creatinine, Serum 1.33 mg/dL (0.70-1.30); EST Glomerular Filtration Rate 57 mL/min (>60); Est Glom Filt Rate - Afr Amer 69 mL/min (>60); Estimated Creatinine Clearance 59.24 ml/min; Glucose 97 mg/dL (74-106); Potassium 4.2 mmol/L (3.5-5.1); Sodium Level 140 mmol/L (136-145)
[2023-03-20 10:05] VITALS: O2SAT 96
[2023-03-20] MEDS: Aspirin E.C. 81 MG Tablet PO ×2 (10:56→17:40)
[2023-03-20] MEDS: Doxycycline 100 MG CAPSULE PO ×2 (10:57→20:18)
[2023-03-20] MEDS: Polyethylene Glycol 3350 17 GM PACKET PO (10:57)
[2023-03-20] MEDS: Juven (unflavored) Packet 1 PACKET PO ×2 (10:57→17:40)
[2023-03-20] MEDS: Lisinopril 10 MG Tablet PO (10:58)
[2023-03-20] MEDS: Ascorbic Acid 500 MG Tablet PO ×2 (10:58→20:18)
[2023-03-20] MEDS: Senna/Docusate Sodium 1 Tablet 2 TABLET PO ×2 (11:00→20:18)
[2023-03-20] MEDS: Memantine Hydrochloride 5 MG Tablet PO ×2 (11:00→20:18)
[2023-03-20 15:59] VITALS: BP 91/50; PULSE 107; RESP 16; TEMP 36.8; O2SAT 96
[2023-03-20] MEDS: Tuberculin,Purif.prot.deriv. 50 TU/ML Vial 0.1 ML ID (16:08)
[2023-03-20] MEDS: Donepezil HCl 10 MG Tablet PO (20:18)
[2023-03-21] MEDS: oxyCODONE 5 MG Tablet PO ×2 (02:38→20:04)
[2023-03-21] MEDS: LORazepam 0.5 MG Tablet PO ×2 (02:38→20:04)
[2023-03-21 07:00] VITALS: O2SAT 95
[2023-03-21] MEDS: Aspirin E.C. 81 MG Tablet PO ×2 (10:31→18:16)
[2023-03-21] MEDS: Ascorbic Acid 500 MG Tablet PO ×2 (10:31→20:02)
[2023-03-21] MEDS: Juven (unflavored) Packet 1 PACKET PO ×2 (10:31→18:16)
[2023-03-21] MEDS: Lisinopril 10 MG Tablet PO (10:31)
[2023-03-21] MEDS: Doxycycline 100 MG CAPSULE PO ×2 (10:32→20:03)
[2023-03-21] MEDS: Polyethylene Glycol 3350 17 GM PACKET PO (10:32)
[2023-03-21] MEDS: Memantine Hydrochloride 5 MG Tablet PO ×2 (10:33→20:03)
[2023-03-21] MEDS: Senna/Docusate Sodium 1 Tablet 2 TABLET PO ×2 (10:33→20:02)
[2023-03-21] MEDS: Acetaminophen 500 MG Tablet 1000 MG PO ×2 (13:49→20:02)
[2023-03-21 14:52] VITALS: BP 110/59; PULSE 90; RESP 16; TEMP 36.6; O2SAT 96
[2023-03-21] MEDS: Donepezil HCl 10 MG Tablet PO (20:03)
--- NOTE | 2023-03-21 20:50 | NURSING ---
Spoke w/ Dr. Santos via phone to update on scattered psoriasis patches to BLE that itch. New order received and read back for Hytone cream 2.5% apply BID PRN.
[2023-03-21 23:43] VITALS: O2SAT 97
[2023-03-22] MEDS: oxyCODONE 5 MG Tablet PO ×2 (01:55→08:17)
[2023-03-22] MEDS: Hydrocortisone 2.5% Crm 1 APPLIC TOPICAL (01:55)
[2023-03-22] MEDS: LORazepam 0.5 MG Tablet PO (02:04)
[2023-03-22] MEDS: Acetaminophen 500 MG Tablet 1000 MG PO ×3 (04:40→21:39)
[2023-03-22 05:35] VITALS: O2SAT 96
[2023-03-22 09:07] VITALS: BP 84/53; PULSE 84; RESP 17; TEMP 36.6; O2SAT 95
[2023-03-22] MEDS: Ascorbic Acid 500 MG Tablet PO ×2 (09:15→21:39)
[2023-03-22] MEDS: Senna/Docusate Sodium 1 Tablet 2 TABLET PO ×2 (09:15→21:39)
[2023-03-22] MEDS: Juven (unflavored) Packet 1 PACKET PO ×2 (09:15→17:22)
[2023-03-22] MEDS: Doxycycline 100 MG CAPSULE PO ×2 (09:15→21:40)
[2023-03-22] MEDS: Aspirin E.C. 81 MG Tablet PO ×2 (09:15→17:22)
[2023-03-22] MEDS: Polyethylene Glycol 3350 17 GM PACKET PO (09:15)
[2023-03-22] MEDS: Memantine Hydrochloride 5 MG Tablet PO ×2 (09:15→21:39)
[2023-03-22 10:30] VITALS: BP 79/55; PULSE 90
--- NOTE | 2023-03-22 10:46 | NURSING ---
Call placed to Dr. Santos. Updated on low BP. New orders recieved.
[2023-03-22] MEDS: 0.9% Normal Saline 1,000 ML 999 ML IV (11:09)
[2023-03-22 12:24] VITALS: BP 102/60; PULSE 101
[2023-03-22] MEDS: Donepezil HCl 10 MG Tablet PO (21:39)
[2023-03-22 21:50] VITALS: BP 104/74; PULSE 89
[2023-03-23] MEDS: Acetaminophen 500 MG Tablet 1000 MG PO ×3 (05:44→21:33)
[2023-03-23] MEDS: Aspirin E.C. 81 MG Tablet PO ×2 (10:26→16:50)
[2023-03-23] MEDS: Ascorbic Acid 500 MG Tablet PO ×2 (10:26→21:35)
[2023-03-23] MEDS: Memantine Hydrochloride 5 MG Tablet PO ×2 (10:26→21:33)
[2023-03-23] MEDS: Doxycycline 100 MG CAPSULE PO ×2 (10:26→21:34)
[2023-03-23] MEDS: Juven (unflavored) Packet 1 PACKET PO ×2 (10:26→16:50)
[2023-03-23 10:33] VITALS: BMI 26.3
--- NOTE | 2023-03-23 11:41 | NURSING ---
Addendum entered by Claribel Conley 03/23/23 12:00: states she cancelled pt ortho appt and will reschedule when discharged home. Original Note: pt with ortho appt on , message left with regarding whether she is transporting, awaiting return call.
--- NOTE | 2023-03-23 13:59 | MDS.RN ---
Information for the mds was obtained from review of the clinical record, interview of resident, staff, and direct observation of resident's care.
[2023-03-23 15:06] VITALS: BP 91/62; PULSE 110; RESP 16; TEMP 36.6; O2SAT 96
[2023-03-23] MEDS: Donepezil HCl 10 MG Tablet PO (21:34)
[2023-03-23] MEDS: Senna/Docusate Sodium 1 Tablet 2 TABLET PO (21:34)
[2023-03-23 22:00] VITALS: PULSE 85; RESP 14; O2SAT 97
[2023-03-24] MEDS: LORazepam 0.5 MG Tablet PO ×2 (01:28→22:20)
[2023-03-24] MEDS: Acetaminophen 500 MG Tablet 1000 MG PO ×3 (05:16→22:18)
[2023-03-24 05:21] VITALS: PULSE 90; RESP 16; O2SAT 97
[2023-03-24] MEDS: Polyethylene Glycol 3350 17 GM PACKET PO (08:47)
[2023-03-24] MEDS: Ascorbic Acid 500 MG Tablet PO ×2 (08:47→22:23)
[2023-03-24] MEDS: Juven (unflavored) Packet 1 PACKET PO ×2 (08:47→17:45)
[2023-03-24] MEDS: Senna/Docusate Sodium 1 Tablet 2 TABLET PO ×2 (08:47→22:18)
[2023-03-24] MEDS: Aspirin E.C. 81 MG Tablet PO ×2 (08:47→17:44)
[2023-03-24] MEDS: Memantine Hydrochloride 5 MG Tablet PO ×2 (08:47→22:18)
[2023-03-24] MEDS: Doxycycline 100 MG CAPSULE PO ×2 (08:48→22:18)
--- NOTE | 2023-03-24 12:15 | CASEMGMT ---
Social Work Insurance issued LCD 03/26, DC 03/27. SW phoned to notify and explain appeal rights. denied appeal and agreeable for pt to DC home with existing 08/02 care. requesting [facility], whom pt used prior. No DME needs. to transport home. CATERINA phoned referral to [facility] PT/OT/CHRISTIAN. Plan: DC home with 03/27, [facility] PT/OT/CHRISTIAN KAMILA FallonW
[2023-03-24] MEDS: Ensure Plus High Protein 120 ML LIQUID PO ×2 (13:25→17:44)
[2023-03-24 15:21] VITALS: BP 108/66; PULSE 82; RESP 17; TEMP 36.6
--- NOTE | 2023-03-24 20:17 | DS.PCM_ITS ---
Providers Date of Admission: 03/12/23 Primary Care Physician: SACHIN Torres Reason For Visit: FAILURE OF RIGHT TOTAL HIP ARTHROPLASTY Diagnosis Discharge Diagnosis (1) Debility: Status: Acute Code(s): R53.81 - Other malaise (2) History of revision of total replacement of right hip joint: Status: Acute Code(s): Z96.641 - Presence of right artificial hip joint (3) Hypertension: Status: Chronic Code(s): I10 - Essential (primary) hypertension (4) Iron deficiency anemia: Status: Acute Code(s): D50.9 - Iron deficiency anemia, unspecified (5) Allergic rhinitis: Status: Acute Code(s): J30.9 - Allergic rhinitis, unspecified (6) Benign prostate hyperplasia: Status: Resolved Code(s): N40.0 - Benign prostatic hyperplasia without lower urinary tract symptoms (7) Psoriasis: Status: Resolved Code(s): L40.9 - Psoriasis, unspecified Plan 67 year old male with below past medical history significant for chronic recu rrent dislocation right total hip arthroplasty, hospitalized for revision right total hip arthoplasty 03/10/2023, admitted to TCU with debility, here for rehabilitation, strengthening, prior to discharge home with . * Debility - PT/OT. * Cognition - ST. * Pain - Tylenol 1000mg q8, Oxycodone 5mg q4h prn pain (4-10). * Bowel - Miralax 17gm daily, senna/colace 2 tablets bid, Magnesium citrate 300ml po daily prn, * Adult immunization - Administer pneumonia vaccine, covid19 vaccine, flu vaccine as appropriate. * DVT prophylaxis - Aspirin 81mg bid. * Vitamin C deficiency - Vitamin C 500mg bid thru 03/25/2023. * Alzheimer Disease - Donepezil 10mg qhs, Memantine 5mg bid. * Infectious Disease - Doxycycline 100mg q12h thru 04/22/2023, culture data unavailable. * Hypertension - Lisinopril 10mg daily. Medications at Discharge Home Medications donepezil 10 mg tablet 10 mg PO DAILY Memory 10/26/22 losartan 50 mg tablet 50 mg PO DAILY #30 tabs 10/28/22 lorazepam 1 mg tablet (Ativan) 1 mg PO TID PRN anxiety 5 days #15 tabs 12/31/22 acetaminophen 500 mg capsule 500 mg PO Q8H PRN PRN pain 03/12/23 ascorbic acid (vitamin C) 500 mg capsule 500 mg PO BID Supplement 03/12/23 memantine 5 mg tablet 5 mg PO BID MEMORY 03/12/23 acetaminophen 500 mg tablet 1,000 mg (2 x 500 mg) PO Q8 #0 tabs 03/24/23 aspirin 81 mg tablet,delayed release 81 mg PO BIDCM 14 days #0 tabs 03/24/23 lorazepam 0.5 mg tablet 0.5 mg PO Q6H PRN PRN Anxiety/Restlessness/Sleep 7 days #28 tabs 03/24/23 oxycodone 5 mg tablet 5 mg PO Q4H PRN PRN Pain Score 4-10 7 days #42 tabs 03/24/23 Hospital Course Operations - (See below.) Procedures None Summary of Care Provided Minutes Spent on Discharge: 35 Hospital Course: 67 year old male with below past medical history significant for chronic recurrent dislocation right total hip arthroplasty, hospitalized for revision right total hip arthoplasty 03/10/2023, admitted to TCU with debility, here for rehabilitation, strengthening, prior to discharge home with . Discharge home with 03/27/2023, [facility] PT/OT/CHRISTIAN. Physical Exam Const alert General Appearance: cooperative HEENT normocephalic Eyes PERRL and EOMs intact bilaterally Neck supple, no JVD and no carotid bruits Resp normal respiratory effort, normal air movement and clear to auscultation bilaterally Cardio regular rate and regular rhythm GI normal to inspection, nondistended, normoactive bowel sounds, non-tender and non-distended Extremity normal capillary refill General Extremity: Negative for edema Skin no rashes or lesions noted General Skin Exam: no breakdown Psych affect normal Appearance: appropriate Weight / BMI Weight Weight: 90.537 kg Body Mass Index (BMI) 26.3 ABG / Lab / Microbiology Data 03/20/23 06:30 03/20/23 06:30 Microbiology: Microbiology 03/15/23 10:50 Urine, Catheterized Urine Culture - Final Culture exhibits no growth. D/C Instructions Discharge Diet: No restrictions Discharge Activity: Return to Normal Activity, May Shower and Use Walker Weight Bearing Status: Weight bearing as tolerated Call your doctor if you observe: Fever of 101 or Higher, Inability to urinate, Inability to have a bowel movement, Shortness of breath, Dizziness, Fainting spells, Swelling in the ankles, Chest pain and Uncontrolled pain Additional Instructions: Discharge home with 03/27/2023, [facility] Care PT/OT/CHRISTIAN. Please Follow Up With: Dejon Clifford (surgeon) When: As scheduled. Meaningful Use Info Meaningful Use Diagnoses (Choose all that apply): None applicable Discharge Plan Admission Admit Date/Time: 03/12/23 14:35 Primary Reason for Your Visit: Debility. Attending Provider: Bridger Santos Chi Primary Care Provider: Clifton Doran Instructions Additional Instructions / Restrictions: Discharge home with 03/27/2023, [facility] Care PT/OT/CHRISTIAN. Discharge Orders/Prescriptions Prescriptions: New acetaminophen 500 mg Tablet 1,000 mg PO Q8 Qty: 0 0RF aspirin 81 mg Tablet,Delayed Release (Dr/Ec) 81 mg PO BIDCM 14 Days Qty: 0 0RF lorazepam 0.5 mg Tablet 0.5 mg PO Q6H PRN PRN (Reason: Anxiety/Restlessness/Sleep) 7 Days Qty: 28 0RF oxycodone 5 mg Tablet 5 mg PO Q4H PRN PRN (Reason: Pain Score 4-10) 7 Days Qty: 42 0RF Continued donepezil 10 mg tablet 10 mg PO DAILY Patient Comments: TAKE 1 TABLET BY MOUTH ONCE DAILY AT BEDTIME memantine 5 mg tablet 5 mg PO BID ascorbic acid (vitamin C) 500 mg capsule 500 mg PO BID Discontinued doxycycline hyclate 100 mg capsule 100 mg PO Q12H lisinopril 10 mg tablet 10 mg PO DAILY aspirin [Enteric Coated Aspirin] 81 mg tablet,delayed release (DR/EC) 81 mg PO BID docusate sodium [Col-Rite] 100 mg capsule 100 mg PO BID PRN (Reason: Constipation) oxycodone 5 mg tablet 5 - 10 mg PO Q6H PRN (Reason: pain) polyethylene glycol 3350 [ClearLax] 17 gram powder in packet 17 g PO DAILY PRN (Reason: constipation) No Action losartan 50 mg tablet 50 mg PO DAILY Qty: 30 1RF lorazepam [Ativan] 1 mg tablet 1 mg PO TID PRN (Reason: anxiety) 5 Days Qty: 15 0RF acetaminophen 500 mg capsule 500 mg PO Q8H PRN PRN (Reason: pain) Referrals / Follow Up: Dejon Clifford [Other] ( to make after discharge ) Clifton Doran PA [Primary Care Provider] - Disposition Disposition (needs filled in before D/C Order can be placed): Home Health Service
[2023-03-24] MEDS: Donepezil HCl 10 MG Tablet PO (22:18)
[2023-03-25] MEDS: Ensure Plus High Protein 120 ML LIQUID PO ×3 (05:30→17:07)
[2023-03-25] MEDS: Acetaminophen 500 MG Tablet 1000 MG PO ×3 (05:31→21:02)
[2023-03-25] MEDS: Doxycycline 100 MG CAPSULE PO ×2 (08:39→20:56)
[2023-03-25] MEDS: Memantine Hydrochloride 5 MG Tablet PO ×2 (08:39→21:01)
[2023-03-25] MEDS: Senna/Docusate Sodium 1 Tablet 2 TABLET PO ×2 (08:39→21:02)
[2023-03-25] MEDS: Juven (unflavored) Packet 1 PACKET PO ×2 (08:39→17:07)
[2023-03-25] MEDS: Aspirin E.C. 81 MG Tablet PO ×2 (08:39→17:07)
[2023-03-25] MEDS: Ascorbic Acid 500 MG Tablet PO ×2 (08:40→21:02)
[2023-03-25 14:32] VITALS: BP 117/69; PULSE 77; RESP 16; TEMP 36.6; O2SAT 99
[2023-03-25] MEDS: Hydrocortisone 2.5% Crm 1 APPLIC TOPICAL (15:40)
[2023-03-25] MEDS: hydrOXYzine PAM 25 MG Capsule PO (20:58)
[2023-03-25] MEDS: Donepezil HCl 10 MG Tablet PO (21:01)
[2023-03-25] MEDS: LORazepam 0.5 MG Tablet PO (23:57)
[2023-03-26] MEDS: Ensure Plus High Protein 120 ML LIQUID PO ×4 (05:16→21:10)
[2023-03-26] MEDS: Hydrocortisone 2.5% Crm 1 APPLIC TOPICAL (05:18)
[2023-03-26] MEDS: Acetaminophen 500 MG Tablet 1000 MG PO ×3 (05:19→21:08)
[2023-03-26 05:24] VITALS: PULSE 100; RESP 18; O2SAT 96
[2023-03-26] MEDS: Polyethylene Glycol 3350 17 GM PACKET PO (08:12)
[2023-03-26] MEDS: Aspirin E.C. 81 MG Tablet PO ×2 (08:12→16:38)
[2023-03-26] MEDS: Juven (unflavored) Packet 1 PACKET PO ×2 (08:12→16:38)
[2023-03-26] MEDS: Memantine Hydrochloride 5 MG Tablet PO ×2 (09:22→21:08)
[2023-03-26] MEDS: Senna/Docusate Sodium 1 Tablet 2 TABLET PO ×2 (09:22→21:08)
[2023-03-26] MEDS: Doxycycline 100 MG CAPSULE PO ×2 (09:23→21:08)
--- NOTE | 2023-03-26 11:07 | CASEMGMT ---
Social Work BIMS (09/30) and PHQ-9 () completed for MDS assessment. KAMILA FallonW
--- NOTE | 2023-03-26 11:42 | MDS.RN ---
MDS pain interview completed.
[2023-03-26 14:37] VITALS: BP 94/65; PULSE 125; RESP 16; TEMP 36.4; O2SAT 95
[2023-03-26] MEDS: 0.9% Normal Saline (1000mL) 1,000 ML 1000 ML IV (15:33)
[2023-03-26 16:34] VITALS: BP 120/75; PULSE 96
--- NOTE | 2023-03-26 17:41 | NURSING ---
Addendum entered by Nanci Moore 03/26/23 17:46: Pts updated. Original Note: SAWMILL SUPERVISOR entered room and noticed pt bleeding to left wrist. Pt pulled out his IV on left wrist. Pt noted to have a large Hematoma on left wrist where IV was pulled out. Pt cleaned up.
[2023-03-26] MEDS: hydrOXYzine PAM 25 MG Capsule PO (21:07)
[2023-03-26] MEDS: Donepezil HCl 10 MG Tablet PO (21:08)
[2023-03-26] MEDS: Menthol/Lanolin/Calamine/Znox 113 GM Tube 1 APPLIC TOPICAL (21:17)
[2023-03-27] MEDS: Acetaminophen 500 MG Tablet 1000 MG PO (06:36)
[2023-03-27] MEDS: Ensure Plus High Protein 120 ML LIQUID PO (06:37)
[2023-03-27 08:01] LABS: Absolute Lymphocyte Count 1.72 X10^3/uL (0.83-4.51); Absolute Neutrophil Count 4.8 X10^3/uL (2.0-7.7); Basophil# 0.05 X10^3/uL; Basophil% 0.7 % (0-1); Eosinophil# 0.19 X10^3/uL; Eosinophils% 2.6 % (0-5); Hematocrit 39.6 % (40-54); Hemoglobin 12.6 g/dL (13.0-16.5); Lymphocyte # 1.72 X10^3/ul (0.83-4.51); Lymphocyte % 23.1 % (19-41); Mean Corp Hgb Conc 31.8 g/dL (32-36); Mean Corpuscular Hgb 30.2 pg (27.0-32.0); Mean Platelet Vol. 9.6 fl (6.2-12.0); Monocyte# 0.65 X10^3/uL; Monocyte% 8.7 % (0-10); NRBC Flagged by Analyzer 0 % (0-5); Neutrophil # 4.77 X10^3/uL (2.7-7.7); Neutrophil % 64.1 % (47-70); Platelet Count 593 K/mm3 (150-450); RBC Distribution Width CV 14.1 % (11.6-14.6); RBC Distribution Width SD 49.2 fl (35.1-43.9); Red Blood Count 4.17 M/mm3 (4.6-6.2); White Blood Count 7.4 K/mm3 (4.4-11.0)
[2023-03-27 08:33] LABS: Anion Gap 5 (5-15); BUN 43 mg/dL (7-18); BUN/Creat Ratio 33.6 RATIO (10-20); Calcium,Total 8.9 mg/dL (8.5-10.1); Chloride 110 mmol/L (98-107); Creatinine, Serum 1.28 mg/dL (0.70-1.30); EST Glomerular Filtration Rate 59 mL/min (>60); Est Glom Filt Rate - Afr Amer 72 mL/min (>60); Estimated Creatinine Clearance 61.55 ml/min; Glucose 100 mg/dL (74-106); Potassium 3.8 mmol/L (3.5-5.1); Sodium Level 140 mmol/L (136-145)
[2023-03-27 08:38] VITALS: BP 141/71; PULSE 99; RESP 16; TEMP 36.4; O2SAT 99
[2023-03-27] MEDS: Juven (unflavored) Packet 1 PACKET PO (08:44)
[2023-03-27] MEDS: Menthol/Lanolin/Calamine/Znox 113 GM Tube 1 APPLIC TOPICAL (08:44)
[2023-03-27] MEDS: Aspirin E.C. 81 MG Tablet PO (08:44)
[2023-03-27] MEDS: Memantine Hydrochloride 5 MG Tablet PO (08:45)
[2023-03-27] MEDS: Polyethylene Glycol 3350 17 GM PACKET PO (08:45)
[2023-03-27] MEDS: Senna/Docusate Sodium 1 Tablet 2 TABLET PO (08:45)
[2023-03-27] MEDS: Doxycycline 100 MG CAPSULE PO (08:45)
== END 2023-03-27 10:40 | disposition home health service (06) | DRG 950 ==
PROVIDERS: Admitting Provider Family Medicine Geriatric Medicine; PCP Physician Assistant; Referring Provider Family Medicine Geriatric Medicine; Visit Provider Family Medicine Geriatric Medicine
DX: T84.020D Dislocation of internal right hip prosthesis, subsequent encounter (principal); F02.80 Dementia in other diseases classified elsewhere, unspecified severity, without behavioral disturbance, psychotic disturbance, mood disturbance, and anxiety; G30.9 Alzheimer's disease, unspecified; N18.32 Chronic kidney disease, stage 3b; I12.9 Hypertensive chronic kidney disease with stage 1 through stage 4 chronic kidney disease, or unspecified chronic kidney disease; L40.9 Psoriasis, unspecified; G47.33 Obstructive sleep apnea (adult) (pediatric); N40.0 Benign prostatic hyperplasia without lower urinary tract symptoms; Z79.82 Long term (current) use of aspirin; Z87.891 Personal history of nicotine dependence; Y79.2 Prosthetic and other implants, materials and accessory orthopedic devices associated with adverse incidents; Z79.899 Other long term (current) drug therapy
CPT/HCPCS: 36415; 80048; 81001; 82962; 85025; 87086; 92507; 92523; 97110; 97116; 97129; 97130; 97162; 97166; 97530; 97535; 97802; J7030

== ENCOUNTER → 2023-03-19 | Outpatient (CLI) | payer MEDICARE, SELFPAY ==
--- NOTE | 2023-03-19 08:38 | VDLE_ITS ---
Reason For Study: Right leg swelling RIGHT LEFT GSV is normal. CFV is compressible, spontaneous, phasic, CFV is compressible, spontaneous, phasic, competent, and demonstrates normal competent and demonstrates normal augmentation. augmentation. FV is compressible, spontaneous, phasic, competent and demonstrates normal augmentation. POP V is compressible, spontaneous, phasic, competent and demonstrates normal augmentation. T/P Trunk is compressible. PTV is compressible. RT PerV is compressible. Procedure This is a venous duplex using B-mode, color flow and spectral Doppler. Exam performed in department. A preliminary report was called and/or faxed to TCU. VL/Venous Duplex US, Unilateral Interpretation Summary Deep veins of the right lower extremity are patent and compressible segmentally . There is no evidence of right lower extremity deep vein thrombosis. The right great sapheno us vein appears patent and compressible segmentally. Ordering Physician: Bridger Santos Chi Referring Physician: Scott Doran Performed By: Katie Camejo RVT
== END | disposition home or self-care (01) ==
LOC: CVS 08:38
PROVIDERS: PCP Physician Assistant; Referring Provider Family Medicine Geriatric Medicine; Visit Provider Family Medicine Geriatric Medicine
DX: R60.0 Localized edema (principal)
CPT/HCPCS: 93971

== ENCOUNTER → 2023-09-09 | Outpatient (CLI) | payer MEDICARE, SELFPAY ==
[2023-09-11 17:07] LABS: QNTFERON TB Mitogen Value > 10.00 IU/mL (.); QNTFERON TB Nil Value 0.02 IU/mL (.); QNTFERON TB2+ Ag Value 0.07 IU/mL (.); QNTIFERON TB Positive Criteria Negative (Negative)
== END | disposition home or self-care (01) ==
PROVIDERS: PCP Physician Assistant; Referring Provider Dermatology; Visit Provider Dermatology
DX: L40.0 Psoriasis vulgaris (principal); L82.1 Other seborrheic keratosis; D48.5 Neoplasm of uncertain behavior of skin; Z79.899 Other long term (current) drug therapy
CPT/HCPCS: 36415; 86480

== ENCOUNTER 2024-09-11 08:37 | Emergency (ER) | payer MEDICARE, SELFPAY ==
[2024-09-11 08:38] VITALS: BP 135/80; PULSE 74; RESP 15; TEMP 36.2; O2SAT 91; BMI 24.5
--- NOTE | 2024-09-11 08:55 | EDS_ITS ---
HPI History of Present Illness Chief Complaint: Nausea/Vomiting Informant: patient and legal guardian Narrative Narrative: 68-year-old male presenting to the emergency department with vomiting. Family notes that he was with them over the weekend. He only had 1 slice of pizza last night not his usual 2. This morning he coughed up his pill that he took before work. While at work where he normally eats breakfast he had some applesauce and then vomited. No reported fevers. He denies cough runny nose sore throat no myalgias no headache. States that he still feels a little bit queasy. [facility] Medical History Stage 3b chronic kidney disease (CKD) Tremor Alzheimer disease History of basal cell cancer Obstructive sleep apnea Vertigo Allergies Arthritis Hypertension Home Medications ?Medication ?Instructions ?Recorded ?Last Taken ?Type donepezil 10 mg tablet 10 mg PO DAILY Memory Unknown History losartan 50 mg tablet 50 mg PO DAILY #30 tabs 10/17 09/10 Unknown Rx lorazepam 1 mg tablet (Ativan) 1 mg PO TID PRN anxiety 5 days #15 12/31/22 Unknown Rx tabs acetaminophen 500 mg capsule 500 mg PO Q8H PRN PRN marcy n 03/12/23 03/12/23 06:00 History ascorbic acid (vitamin C) 500 mg 500 mg PO BID Supplem ent 03/12/23 03/12/23 08:00 History capsule memantine 5 mg tablet 5 mg PO BID MEMORY 03/12/23 03/12/23 08:25 History acetaminophen 500 mg tablet 1,000 mg (2 x 500 mg) PO Q 8 #0 tabs 03/24/23 Unknown Rx aspirin 81 mg tablet,delayed 81 mg PO BIDCM 14 days #0 tabs 03/24/23 Unknown Rx release lorazepam 0.5 mg tablet 0.5 mg PO Q6H PRN PRN Unknown Rx Anxiety/Restlessness/Sleep 7 days #28 tabs oxycodone 5 mg tablet 5 mg PO Q4H PRN PRN Pain Sco re 03/24/23 Unknown Rx 4-10 7 days #42 tabs ondansetron 4 mg disintegrating 4 mg PO Q6H PRN PRN Na usea #15 tabs 09/11/24 Unknown Rx tablet Allergy/AdvReac Type Severity Reaction Status Date / Time cefaclor (From Ceclor) AdvReac Nausea Verified 01/30/23 10:41 celecoxib (From Celebrex) AdvReac Upset Verified 01/30/23 10:41 Stomach Family History Mother Cancer Father Alzheimer disease Prostate cancer Sister Lymphoma Surgical History History of revision of total replacement of right hip joint H/O total hip arthroplasty Social History household members: spouse Smoking Status: Former smoker alcohol intake: never substance use type: does not use ROS ROS ED Constitutional Constitutional ED: Denies chills, fever(s) or weight loss Eyes Eyes: Denies change in vision or diplopia ENT ENT ED: Denies ear pain, rhinorrhea or sore throat Cardiovascular Cardiovascular: Denies chest pain, orthopnea, palpitations or racing heartbeat Respiratory/Chest Respiratory/Chest: Denies cough, dyspnea or orthopnea Gastrointestinal Gastrointestinal: Reports nausea and vomiting; Denies abdominal pain or diarrhea Genitourinary Genitourinary ED: Denies dysuria, hematuria or urinary frequency Musculoskeletal Musculoskeletal: Denies arthralgias or myalgias Integumentary Denies abscess or rash Neurologic Neurologic: Denies headache(s) or weakness Psychiatric Psychiatric: Denies anxiety, depression, suicidal ideation or suicidal thoughts Endocrine Endocrinology: Denies polydipsia, polyphagia or polyuria Allergic/Immunologic Allergic/Immunologic ED: Denies mouth swelling, tongue swelling or urticaria EXAM Physical Exam Const Vital Signs: 09/11/24 08:38 09/11/24 09:34 09/11/24 11:09 Temperature 97.2 F L 98.1 F Temperature Source Oral Oral Pulse Rate 74 69 76 Respiratory Rate 15 17 16 Blood Pressure 135/80 H 133/84 H 136/89 H Blood Pressure Mean 98 100 104 Pulse Ox 91 91 92 Oxygen Delivery Method Room Air Room Air Room Air Positive well nourished and well developed General Appearance ED: well developed HEENT Reports normocephalic, head/scalp atraumatic and moist mucous membranes Eyes PERRL and EOMs intact bilaterally Neck no lymphadenopathy, supple and no JVD Resp normal respiratory effort and clear to auscultation bilaterally Cardio regular rate, regular rhythm and no murmurs GI normal to inspection, nondistended, normoactive bowel sounds and non-tender Palpation: soft Back/Spine no CVA tenderness and normal ROM Extremity normal to inspection General Extremety ED: Negative for edema General Extremity: Negative for edema Neuro oriented x3 and CN's II-XII intact bilaterally Sensorium / Orientation: alert Motor Exam: strength 5/5 throughout Psych mental status grossly normal Mood & Affect: Negative for depressed or tearful Skin no rashes or lesions noted and no wounds MDM MDM MDM Narrative Medical decision making narrative: Differential diagnosis includes but not limited to pancreatitis biliary colic viral gastroenteritis pancreatitis electrolyte abnormalities dehydration Patient's white count is normal at 6.6 with 70.5 neutrophils. Sodium 147. BUN 19 creatinine 1.60 sodium 147 lipase 62 normal LFTs. Patient received Zofran and IV fluids. Has been resting more comfortably. Did have a bout of emesis just after the Zofran was administered but none since. Patient is hemodynamically stable. I will discharge him home with a prescription for Zofran. Would recommend oral hydration and advancing diet as tolerated. Return if worsening or concerns History & Record Review Discussion w/independent historian: Patient and Family Lab Data Attestation: I reviewed the patient's lab results. Labs: Laboratory Results - last 24 hr 09/11/24 09:05 WBC 6.6 RBC 5.41 Hgb 16.1 Hct 50.3 MCV 93.0 MCH 29.8 MCHC 32.0 RDW Std Deviation 48.4 H RDW Coeff of Magda 14.3 Plt Count 547 H MPV 9.3 Immature Gran % (Auto) 0.500 Neut % (Auto) 70.5 H Lymph % (Auto) 19.3 [place] % (Auto) 5.0 Eos % (Auto) 3.9 Baso % (Auto) 0.8 Absolute Neuts (auto) 4.7 Absolute Lymphs (auto) 1.28 Nucleated RBC % 0 Sodium 147 H Potassium 3.6 Chloride 111 H Carbon Dioxide 27.0 Anion Gap 9 BUN 19 H Creatinine 1.60 H Estim Creat Clear Calc 48.55 Est GFR (MDRD) Af Amer 55 L Est GFR (MDRD) Non-Af 46 L BUN/Creatinine Ratio 11.9 Glucose 114 H Calcium 9.4 Total Bilirubin 0.60 Direct Bilirubin 0.19 AST 15 ALT 15 L Alkaline Phosphatase 67 Total Protein 7.1 Albumin 3.4 Globulin 3.7 Lipase 62 L Discharge Plan Triage Chief Complaint: Nausea/Vomiting ED Provider: Vamsi Godwin Dx/Rx/DC Orders Clinical Impression: Nausea & vomiting Instructions: ED Vomiting (Adult) Prescriptions: New ondansetron 4 mg tablet,disintegrating 4 mg PO Q6H PRN PRN (Reason: Nausea) Qty: 15 0RF No Action donepezil 10 mg tablet 10 mg PO DAILY Patient Comments: TAKE 1 TABLET BY MOUTH ONCE DAILY AT BEDTIME losartan 50 mg tablet 50 mg PO DAILY Qty: 30 1RF lorazepam [Ativan] 1 mg tablet 1 mg PO TID PRN (Reason: anxiety) 5 Days Qty: 15 0RF memantine 5 mg tablet 5 mg PO BID ascorbic acid (vitamin C) 500 mg capsule 500 mg PO BID acetaminophen 500 mg capsule 500 mg PO Q8H PRN PRN (Reason: pain) acetaminophen 500 mg Tablet 1,000 mg PO Q8 Qty: 0 0RF aspirin 81 mg Tablet,Delayed Release (Dr/Ec) 81 mg PO BIDCM 14 Days Qty: 0 0RF lorazepam 0.5 mg Tablet 0.5 mg PO Q6H PRN PRN (Reason: Anxiety/Restlessness/Sleep) 7 Days Qty: 28 0RF oxycodone 5 mg Tablet 5 mg PO Q4H PRN PRN (Reason: Pain Score 4-10) 7 Days Qty: 42 0RF Primary Care Provider: Care Physician,No Primary Referrals: Clifton Doran, PA [Non-Staff] - As Needed Print Language: [place] Disposition Disposition: Home, Self Care
[2024-09-11] MEDS: Ondansetron 4 MG/2 ML Vial IV (09:09)
[2024-09-11 09:18] LABS: Absolute Lymphocyte Count 1.28 X10^3/uL (0.83-4.51); Absolute Neutrophil Count 4.7 X10^3/uL (2.0-7.7); Basophil# 0.05 X10^3/uL; Basophil% 0.8 % (0-1); Eosinophil# 0.26 X10^3/uL; Eosinophils% 3.9 % (0-5); Hematocrit 50.3 % (40-54); Hemoglobin 16.1 g/dL (13.0-16.5); Lymphocyte # 1.28 X10^3/ul (0.83-4.51); Lymphocyte % 19.3 % (19-41); Mean Corpuscular Hgb 29.8 pg (27.0-32.0); Mean Platelet Vol. 9.3 fl (6.2-12.0); Monocyte# 0.33 X10^3/uL; NRBC Flagged by Analyzer 0 % (0-5); Neutrophil # 4.69 X10^3/uL (2.7-7.7); Neutrophil % 70.5 % (47-70); Platelet Count 547 K/mm3 (150-450); RBC Distribution Width CV 14.3 % (11.6-14.6); RBC Distribution Width SD 48.4 fl (35.1-43.9); Red Blood Count 5.41 M/mm3 (4.6-6.2); White Blood Count 6.6 K/mm3 (4.4-11.0)
[2024-09-11 09:34] VITALS: BP 133/84; PULSE 69; RESP 17; O2SAT 91
[2024-09-11 09:34] LABS: AST(SGOT) 15 U/L (15-37); Alanine Aminotransfer ALT/SGPT 15 U/L (16-61); Albumin, Serum 3.4 g/dL (3.2-5.0); Alkaline Phosphatase 67 U/L (45-117); Anion Gap 9 (5-15); BUN 19 mg/dL (7-18); BUN/Creat Ratio 11.9 RATIO (10-20); Bilirubin, Direct 0.19 mg/dL (0.00-0.30); Calcium,Total 9.4 mg/dL (8.5-10.1); Chloride 111 mmol/L (98-107); EST Glomerular Filtration Rate 46 mL/min (>60); Est Glom Filt Rate - Afr Amer 55 mL/min (>60); Estimated Creatinine Clearance 48.55 ml/min; Globulin 3.7 g/dL (2.2-4.2); Glucose 114 mg/dL (74-106); Lipase 62 U/L (73-393); Potassium 3.6 mmol/L (3.5-5.1); Protein, Total 7.1 g/dL (6.4-8.2); Sodium Level 147 mmol/L (136-145)
--- NOTE | 2024-09-11 09:35 | ED.RN ---
pt vomited a small amt of food and some mucous. physician is aware
[2024-09-11] MEDS: 0.9% Normal Saline (1000mL) 1,000 ML 999 ML IV (09:54)
[2024-09-11 11:09] VITALS: BP 136/89; PULSE 76; RESP 16; TEMP 36.7; O2SAT 92
[2024-09-11 11:31] VITALS: BP 135/77; PULSE 86; RESP 15; TEMP 36.7; O2SAT 93
== END 2024-09-11 11:32 | disposition home or self-care (01) ==
PROVIDERS: Emergency Provider Emergency Medicine; Visit Provider Emergency Medicine
DX: R11.2 Nausea with vomiting, unspecified (principal); G30.9 Alzheimer's disease, unspecified; F02.80 Dementia in other diseases classified elsewhere, unspecified severity, without behavioral disturbance, psychotic disturbance, mood disturbance, and anxiety; N18.32 Chronic kidney disease, stage 3b; I12.9 Hypertensive chronic kidney disease with stage 1 through stage 4 chronic kidney disease, or unspecified chronic kidney disease; Z79.899 Other long term (current) drug therapy; Z87.891 Personal history of nicotine dependence
CPT/HCPCS: 80048; 80076; 83690; 85025; 96361; 96374; 99285; A4216; J2405